=== PATIENT | female | born 1950 | race African-American/Black ===

== ENCOUNTER 2017-04-15 14:02 | Observation (INO) | payer MEDICARE, MEDICAID ==
[2017-04-15 14:42] LABS: #Basophils 0.1 thou/uL (0.0-0.2); #Eosinphils 0.1 thou/uL (0.0-0.7); #Lymphocytes 1.3 thou/uL (1.20-3.40); #Monocytes 0.9 thou/uL (0.11-0.59); #Neutrophils 6.3 thou/uL (1.40-6.50); %Basophils 0.9 % (0.0-1.0); %Lymphocytes 14.9 % (21.0-51.0); %Monocytes 10.2 % (0.0-10.0); Hematocrit 35.1 % (36.0-47.0); Mean Platelet Volume 7.7 fL (7.4-10.4); Red Blood Cell (RBC) Count 3.63 mill/uL (4.20-5.40); White Blood Cell (WBC) Count 8.7 thou/uL (4.8-10.8)
[2017-04-15 15:13] LABS: ALT (SGPT) 20 U/L (8-55); AST (SGOT) 22 U/L (5-34); Alkaline Phosphatase 58 U/L (40-150); Anion Gap 14 mmol/L (10-20); BUN (Urea Nitrogen) 24 mg/dL (9.8-20.1); Bilirubin, Total 0.3 mg/dL (0.2-1.2); CK (CPK) 454 U/L (29-168); Calc. Creatinine Clearance 0 mL/min (70-130); Calcium 9.8 mg/dL (7.8-10.44); Carbon Dioxide 28 mmol/L (23-31); Chloride 103 mmol/L (98-107); Estimated GFR-MDRD 55; Globulin 3.2 g/dL (2.4-3.5); Protein, Total 7.3 g/dL (6.0-8.3)
[2017-04-15 15:17] LABS: Troponin I Less than 0.010 ng/mL (< 0.028)
--- NOTE | 2017-04-15 16:35 | CT ---
CT HEAD WITHOUT IV CONTRAST: Date: 04/15/17 HISTORY: Syncope. Patient fell, but does not remember the fall and notes loss of consciousness. Weakness in l egs. COMPARISON: None available. FINDINGS: Scattered areas of decreased attenuation are seen in the periventricular white matter, which are non specific but likely reflective of chronic small vessel ischemic changes. Low density areas are seen within the right basal ganglia, most compatible with lacunar infarctions in the right basal ganglia, likely more remote in origin as there is mild ex vacuo dilatation of the anterior horn of the right lateral ventricle. No acute cortical infarction, hemorrhage, mass effect, or midline shift is ident ified. Calvarial structures are intact and there is no fracture visualized. Minimal mucosal thickening is p resent in the right maxillary antrum. Mastoid air cells are clear. Vascular calcifications are seen in the carotid siphons and distal vertebral arteries. IMPRESSION: 1. No acute intracranial abnormalities demonstrated. 2. Chronic small vessel ischemic changes. 3. Remote lacunar infarctions right basal ganglia. 4. Low density area within the more central derick, which may be artifactual, although findings may b e related to chronic small vessel ischemic changes. 5. MRI would be the more sensitive study of choice for more acute infarctions. POS: [facility]
[2017-04-15 16:55] LABS: Bilirubin Negative (Negative); Blood, Urine Negative (Negative); Glucose, Urine (Dipstick) Negative (Negative); Ketone, Urine Negative (Negative); Nitrite Negative (Negative); Protein, Urine (Dipstick) 30 mg/dL (Neg-Trace); Urobilinogen 0.2 mg/dL (0.2-1.0)
[2017-04-15 16:58] LABS: Bacteria/HPF None Seen HPF (None Seen); Hyaline Casts/LPF 0-3 HYALINE CAST LPF (0-3 Hyaline); RBC/HPF 0-3 HPF (0-3); Squamous Epithelial 0-3 HPF (0-3); WBC/HPF 0-3 HPF (0-3)
--- NOTE | 2017-04-15 18:28 | RAD ---
PORTABLE CHEST: History: Syncope. FINDINGS: Cardiac silhouette is magnified and enlarged. Pulmonary vasculature is engorged. Mediastinum is midl ine with aortic calcification. There is no lobar consolidation or evidence of pneumothorax. IMPRESSION: Cardiomegaly with mild pulmonary vascular congestion. POS: [facility]
[2017-04-15] MEDS ORDERED: Ondansetron HCl/PF 4 MG/2 ML Vial IVP PRN (19:05)
[2017-04-15] MEDS ORDERED: Acetaminophen 325 MG TAB PO PRN (19:05)
[2017-04-15] MEDS ORDERED: HYDROcodone/Acetaminophen 10/325 mg Tablet PO PRN (19:05)
[2017-04-15] MEDS ORDERED: Dextrose 5% in Water 1,000 ML IV PRN (19:05)
[2017-04-15] MEDS ORDERED: HYDROcodone/Acetaminophen 5/325 mg Tablet PO PRN (19:05)
[2017-04-15] MEDS ORDERED: Dextrose 50% Abboject 50 ML SYRINGE SLOW IVP PRN (19:05)
[2017-04-15] MEDS ORDERED: HumaLOG 300 UNITS/3 ML VIAL SC PRN (19:05)
--- NOTE | 2017-04-15 19:05 | HP ---
DATE OF ADMISSION: 04/15/2017 The patient is being placed on observation status. PRIMARY CARE PHYSICIAN: RAMA Woods CHIEF COMPLAINT: Fall, hypoglycemia. HISTORY OF PRESENT ILLNESS: Ms. Orozco is a 67-year-old severely obese -[place] female , who was found down by the family members on the floor. It was unknown how long she was down, she was found about 1:00 p.m. today. She remembers looking at the clock when she woke up this morning a round 6:00 a.m. and has been there ever since. EMS was called. On arrival, she was found to have a glucose around 44. She was given fluids and D5 0 and transported. On arrival here, she was then noted to be 55 on her labs. She was given another amp of D50 and her last sugar reportedly here was 70. The patient denies any loss of consciousness. She says she woke up in the floor after she went to b ed last night. She noted that her sugar was 111 when she went to bed. She did not take her evening dose of 27 units of Lantus. No new medications. She denies any fevers or chills, no chest pain. She feels like she is having r igors right now and feels short of breath because of that, but denies any cough, sputum production, chest pain or dyspnea on exertion. In the emergency department, her labs are largely unremarkable except for a low sugar. Troponins we re negative, urinalysis was clear. We were called for admission because despite intervention she re mained hypoglycemic. No other current complaints. PAST MEDICAL HISTORY: 1. Diabetes mellitus type 2, insulin-dependent. 2. Hypertension. 3. Hyperlipidemia. 4. Severe obesity. PAST SURGICAL HISTORY: Include: 1. Right ankle repair after fracture. 2. Total abdominal hysterectomy and bilateral salpingo-oophorectomy, remotely. 3. Bilateral cataract replacements, remotely. HOME MEDICATIONS: She is on: 1. Pioglitazone 45 mg daily, started a couple months ago. 2. Protonix 40 mg daily. 3. Amlodipine 10 mg daily. 4. Lasix 20 mg daily. 5. Fenofibrate 54 mg daily. 6. Pravastatin 20 mg p.o. at bedtime. 7. Aspirin 325 mg daily. 8. Glimepiride 2 mg p.o. daily. 9. Hydralazine 100 mg p.o. t.i.d. 10. Lantus 35 units in the morning, 27 units in the evening. 11. Metformin 1000 mg p.o. q.a.m. ALLERGIES: CARVEDILOL, PENICILLIN, and SULFA, all cause itching. FAMILY HISTORY: Negative for clotting or bleeding, no immune dysfunction. SOCIAL HISTORY: Negative for habits x3. She lives alone. REVIEW OF SYSTEMS: A 10-point review of systems was performed, negative for all other systems excep t as stated as per HPI. PHYSICAL EXAMINATION: VITAL SIGNS: Temperature 97.9, pulse 81, blood pressure 179/82, respiratory rate 14, and satting 10 0% on room air. GENERAL: She is awake. She is alert. She is oriented x3. She appears to be in no distress. She is obese -[place] female. She does appear to be having shaking chills. HEENT: Normocephalic, atraumatic. Pupils are equal, round, and reactive to light bilaterally, muco us membrane moist. There are no visible lesions. No thrush. NECK: Supple. She has no lymphadenopathy, JVD or thyromegaly. LUNGS: Clear. She has decreased breath sounds due to body habitus. I do not appreciate any crackl es or wheezes. ABDOMEN: Obese, it is nontender. She has no rebound, rigidity or guarding. She does have normoact andressa bowel sounds present in all 4 quadrants. EXTREMITIES: No edema and no cyanosis. SKIN: Warm, moist, and well perfused. She has no rashes, no lesions. MUSCULOSKELETAL: Normal to inspection without any palpable joint effusions or inflamed hot joints. NEUROLOGIC: Cranial nerves II through XII are grossly intact without any focal neurologic deficits. Mental status appears to be normal. Speech is normal. LABORATORY AND DIAGNOSTIC DATA: Basic metabolic profile is within normal limits except for glucose of 55. Urinalysis is negative. Troponin and CK-MB negative. Her CK was 454. White blood cell cou nt was within normal limits. Hemoglobin 11.2, hematocrit 35.1, and platelets of 290,000. Chest x-r ay is unremarkable. CT scan of the head was negative for acute changes. She does have what appears to be chronic microvascular ischemic changes. ASSESSMENT AND PLAN: 1. Hypoglycemia: It is seems to be prolonged. The patient denies taking her Lantus last night. S he did take her Lantus in the morning and also did take her glimepiride, metformin, and her pioglita zone. We will hold all of her long-acting diabetic medications. We will put her on D5 normal salin e at 75 mL an hour. We will use sliding scale insulin to correct. We will get q.2 hour Accu-Cheks for the first 8 hours and then do before meals and at bedtime. Once her sugars normalized tomorrow, we will be able to restart her medicines and let her go. I will likely do not continue pioglitazon e. 2. Fall/found on floor. Likely rolled out of bed while she was hypoglycemic and altered. At this point, she appears to be altered and oriented x3. Her CK is minimally elevated. We will recheck in the morning after she has been getting fluids. 3. Hypertension. We will continue her regular antihypertensives. Blood pressure is already gettin g up to 170s over 80s. 4. Hyperlipidemia. We will hold pravastatin for now as this is non-essential. 5. Severe obesity.
[2017-04-15] MEDS: Dextrose 5 % And 0.9 % NaCl 1,000 ML IV SCH (20:05)
[2017-04-15] MEDS: hydrALAZINE 25 MG TAB PO SCH (20:06)
[2017-04-16 04:54] LABS: #Basophils 0.1 thou/uL (0.0-0.2); #Eosinphils 0.2 thou/uL (0.0-0.7); #Lymphocytes 1.5 thou/uL (1.20-3.40); #Monocytes 0.8 thou/uL (0.11-0.59); #Neutrophils 3.7 thou/uL (1.40-6.50); %Basophils 0.8 % (0.0-1.0); %Eosinophils 2.7 % (0.0-10.0); %Lymphocytes 23.7 % (21.0-51.0); %Monocytes 12.4 % (0.0-10.0); Hematocrit 30.1 % (36.0-47.0); White Blood Cell (WBC) Count 6.2 thou/uL (4.8-10.8)
[2017-04-16 05:21] LABS: Anion Gap 15 mmol/L (10-20); BUN (Urea Nitrogen) 23 mg/dL (9.8-20.1); Calc. Creatinine Clearance 94 mL/min (70-130); Calcium 8.9 mg/dL (7.8-10.44); Carbon Dioxide 23 mmol/L (23-31); Chloride 106 mmol/L (98-107); Estimated GFR-MDRD 56
[2017-04-16] MEDS ORDERED: Enoxaparin Sodium 40 MG/0.4 ML SYRINGE SC SCH (09:00)
[2017-04-16] MEDS ORDERED: Aspirin 325 MG TAB PO SCH (09:00)
[2017-04-16] MEDS ORDERED: Amlodipine 10 MG TAB PO SCH (09:00)
[2017-04-16] MEDS: hydrALAZINE 25 MG TAB PO SCH ×2 (09:00→15:06)
[2017-04-16] MEDS ORDERED: Furosemide 20 MG TAB PO SCH (09:00)
[2017-04-16] MEDS: Dextrose 5 % And 0.9 % NaCl 1,000 ML IV SCH (10:30)
[2017-04-16 11:18] VITALS: TEMP 97.8
--- NOTE | 2017-04-16 11:57 | DIS ---
DATE OF ADMISSION: 04/15/2017 DATE OF DISCHARGE: 04/16/2017 PRIMARY CARE PHYSICIAN: Quyen Clifford, family Nurse Practitioner DISCHARGE DISPOSITION: Home. PRIMARY DISCHARGE DIAGNOSES: Hypoglycemia due to type 2 diabetes, altered mental status and fall be cause of hypoglycemia. SECONDARY DISCHARGE DIAGNOSES: Diabetes type 2, morbid obesity, hypertension, dyslipidemia, physica l deconditioning. PRIMARY PROCEDURE/OPERATION: None. RADIOLOGICAL INVESTIGATION: CT brain was negative. SIGNIFICANT LABORATORY: Hemoglobin 9.6, creatinine 1.16. Urinalysis normal. DISCHARGE MEDICATIONS: I advised this patient to hold on diabetic medication today and once blood s ugar was better controlled, then she will start her previous medication. The patient is on following medications: Amlodipine 10 mg p.o. daily, aspirin 325 mg p.o. daily, Tr iCor 54 mg p.o. daily, Lasix 20 mg p.o. daily, Amaryl 2 mg p.o. daily, Lantus insulin subcu daily, p ravastatin 20 mg p.o. at bedtime, hydralazine 100 mg p.o. daily, and metformin 1 gram p.o. daily. CONTRAINDICATIONS: None. CODE STATUS: FULL CODE. INPATIENT CONSULTANTS: None. ALLERGIES: COREG, PENICILLIN, SULFA DRUGS. DISCHARGE PLAN: Post-hospital, the patient will follow up with primary care physician. HOSPITAL COURSE: A 67-year-old female who was admitted by Dr. Syed Dominique, please see his H\T\P for further details. This patient did not eat her breakfast and she took all her diabetes medication, insulin and subsequently she had hypoglycemia and that is why she was admitted in hospital because o f hypoglycemia. She had transient altered mental status and fall with dextrose solution in emergenc y room and subsequently in the hospital, her hypoglycemia completely resolved. Necessary patient ed ucation about avoidance of hypoglycemia and the diabetic medication was given to the patient today. At this point, the patient is medically stable. The patient is seen and examined at bedside. VITAL SIGNS: Currently, temperature 97.8, pulse 79, respiratory rate 20, saturation 94%, and blood pressure 131/73. Her examination is completely benign and normal.
[2017-04-16 15:07] VITALS: BP 143/76
--- NOTE | 2017-04-20 15:51 | EKG ---
Test Reason : FALL Blood Pressure : / mmHG Vent. Rate : 085 BPM Atrial Rate : 085 BPM P-R Int : 152 ms QRS Dur : 084 ms QT Int : 374 ms P-R-T Axes : 053 018 100 degrees QTc Int : 445 ms Sinus rhythm with occasional Premature ventricular complexes Possible Anterior infarct , age undetermined Abnormal ECG Confirmed by LEODAN BEVERLY, CHRIS Olivares ([id number]), senior technical editor JESENIA ANNE ([id number]) on 04/20/2017 3:51:16 PM Referred By: LEODAN Confirmed By:CHRIS ALCOCER MD
== END 2017-04-16 17:33 | disposition home or self-care (01) ==
LOC: ERS 14:02 → T4-A 17:25
PROVIDERS: ADMIT Internal Medicine Infectious Disease; ATTEND Internal Medicine Infectious Disease
DX: E11.649 Type 2 diabetes mellitus with hypoglycemia without coma (principal); R41.82 Altered mental status, unspecified; I10 Essential (primary) hypertension; E78.5 Hyperlipidemia, unspecified; R53.81 Other malaise; E66.01 Morbid (severe) obesity due to excess calories; W19.XXXA Unspecified fall, initial encounter; Z68.43 Body mass index [BMI] 50.0-59.9, adult; Z79.4 Long term (current) use of insulin; Z79.899 Other long term (current) drug therapy; Z88.0 Allergy status to penicillin; Z88.2 Allergy status to sulfonamides; Z88.8 Allergy status to other drugs, medicaments and biological substances; Z90.710 Acquired absence of both cervix and uterus; Z90.79 Acquired absence of other genital organ(s); Z90.722 Acquired absence of ovaries, bilateral; Z98.42 Cataract extraction status, left eye; Z98.41 Cataract extraction status, right eye; Z96.1 Presence of intraocular lens; Z98.890 Other specified postprocedural states; Z87.81 Personal history of (healed) traumatic fracture
CPT/HCPCS: 36415; 36416; 70450; 71010; 80048; 80053; 81003; 81015; 82550; 82553; 84484; 85025; 93005; 94760; 96360; J1650

== ENCOUNTER 2017-05-24 11:23 | Inpatient (IN) | payer MEDICARE, MEDICAID ==
[2017-05-24] MEDS ORDERED: Dextrose 50% Abboject 50 ML SYRINGE ONE (12:30)
--- NOTE | 2017-05-24 13:25 | RAD ---
PORTABLE CHEST 1 VIEW: Date: 05/24/17 Time: 1158 hours HISTORY: Fell out of bed, dyspnea. FINDINGS/IMPRESSION: Comparison made with exam of 04/18/17. The heart is enlarged. The aorta is tortuous. There is mild pulmonary vascular congestion. No pneumo thoraces or large effusions are identified. POS: [facility]
--- NOTE | 2017-05-24 13:26 | RAD ---
LEFT KNEE 2 VIEWS: Date: 05/24/17 HISTORY: Left knee pain, fell out of bed. FINDINGS/IMPRESSION: Degenerative changes are present. No acute fracture or dislocation is identified. POS: [facility]
[2017-05-24 13:30] LABS: #Basophils 0.1 thou/uL (0.0-0.2); #Eosinphils 0.1 thou/uL (0.0-0.7); #Monocytes 0.3 thou/uL (0.11-0.59); #Neutrophils 5.2 thou/uL (1.40-6.50); %Eosinophils 1.4 % (0.0-10.0); %Monocytes 4.8 % (0.0-10.0); Hematocrit 35.2 % (36.0-47.0); Mean Platelet Volume 8.2 fL (7.4-10.4); Red Blood Cell (RBC) Count 3.57 mill/uL (4.20-5.40); White Blood Cell (WBC) Count 6.7 thou/uL (4.8-10.8)
[2017-05-24 13:50] LABS: ALT (SGPT) 53 U/L (8-55); AST (SGOT) 42 U/L (5-34); Alkaline Phosphatase 58 U/L (40-150); Anion Gap 14 mmol/L (10-20); BUN (Urea Nitrogen) 42 mg/dL (9.8-20.1); Bilirubin, Total 0.3 mg/dL (0.2-1.2); Calc. Creatinine Clearance 0 mL/min (70-130); Calcium 9.6 mg/dL (7.8-10.44); Carbon Dioxide 27 mmol/L (23-31); Chloride 103 mmol/L (98-107); Estimated GFR-MDRD 33; Globulin 3.3 g/dL (2.4-3.5); Protein, Total 7.4 g/dL (6.0-8.3)
[2017-05-24 14:18] LABS: Bilirubin Negative (Negative); Blood, Urine Negative (Negative); Glucose, Urine (Dipstick) Negative (Negative); Ketone, Urine Negative (Negative); Nitrite Negative (Negative); Protein, Urine (Dipstick) Negative (Neg-Trace); Urobilinogen 0.2 mg/dL (0.2-1.0)
[2017-05-24 14:23] LABS: Bacteria/HPF None Seen HPF (None Seen); Hyaline Casts/LPF 4-6 HYALINE CAST LPF (0-3 Hyaline); RBC/HPF 0-3 HPF (0-3); WBC/HPF 0-3 HPF (0-3)
[2017-05-24] MEDS ORDERED: Furosemide 40 MG/4 ML VIAL ONE (14:50)
[2017-05-24] MEDS ORDERED: HYDROcodone/Acetaminophen 5/325 mg Tablet ONE (15:38)
[2017-05-24] MEDS ORDERED: Nitroglycerin 2% Ointment 1 INCH/1 GM Packet ONE (15:39)
[2017-05-24 16:00] LABS: Troponin I Less than 0.010 ng/mL (< 0.028)
[2017-05-24] MEDS ORDERED: hydrALAZINE 20 MG/ML VIAL ONE (16:37)
[2017-05-24 17:59] LABS: Troponin I Less than 0.010 ng/mL (< 0.028)
[2017-05-24 19:47] VITALS: BMI 52.6
[2017-05-24] MEDS ORDERED: hydrALAZINE 20 MG/ML VIAL SLOW IVP PRN (19:47)
[2017-05-24] MEDS ORDERED: Ondansetron ODT 4 MG TAB PO PRN (19:47)
[2017-05-24] MEDS ORDERED: Dextrose 50% Abboject 50 ML SYRINGE SLOW IVP PRN (19:47)
[2017-05-24] MEDS ORDERED: HumaLOG 300 UNITS/3 ML VIAL SC PRN (19:47)
[2017-05-24] MEDS ORDERED: Ondansetron HCl/PF 4 MG/2 ML Vial IVP PRN (19:47)
[2017-05-24] MEDS ORDERED: cloNIDine 0.1 MG TAB PO PRN (19:47)
[2017-05-24] MEDS ORDERED: Dextrose 5% in Water 1,000 ML IV PRN (19:47)
--- NOTE | 2017-05-24 20:59 | HP ---
DATE OF ADMISSION: 05/24/2017 PRIMARY CARE PHYSICIAN: RAMA Woods CHIEF COMPLAINT: Altered mental status and low blood sugar. HISTORY OF PRESENT ILLNESS: This is a 67-year-old female who presents to [facility] after apparently falling out of bed in the middle of the night due to likel y hypoglycemic episode. The patient does state she has noticed multiple low blood glucose readings and recently has been taken off her morning dose of insulin and uses Lantus 27 units at bedtime. Th e patient also states she was recently placed on Actos in the last 2 weeks. The patient admits to d ifficulty with low glucose and having to eat peanut butter and candies to maintain her sugar level. The patient apparently was noted with altered mentation, falling out of her bed, striking her left knee on the ground. The patient was evaluated by EMS, at which point, her blood glucoses in the 40s , receiving D50 by EMS personnel. The patient's glucose increased to the 70s and was brought to the emergency room for evaluation. The patient denies any recent fever, chills, exposure history or tr scot. The patient denies any other change to her chronic medication regimen. The patient states sh e has been diabetic for approximately 27 years. During the patient's ER evaluation, portable chest x-ray imaging was obtained showing mild pulmonary vascular prominence. The patient received IV Lasi x 40 mg x1 as well as hydralazine topical nitro paste, [place], aspirin and D50 times 1 amp. Patient currently states she has no specific symptoms and feels at baseline. PAST MEDICAL HISTORY: 1. Morbid obesity. 2. Diabetes mellitus type 2, insulin requiring. 3. History of recurrent hypoglycemic episodes. 4. Diastolic congestive heart failure with ejection fraction of 60%-65%. 5. Hypertension. 6. Dyslipidemia. PAST SURGICAL HISTORY: 1. Status post right ankle repair. 2. Status post hysterectomy. 3. Status post eye surgery x2. 4. Status post abdominal hysterectomy with bilateral salpingo-oophorectomy. 5. Status post bilateral cataract removal. CURRENT MEDICATIONS: Based on recent admission, 04/2017: 1. Amlodipine 10 mg 1 tab p.o. daily. 2. Aspirin 325 mg one tablet p.o. daily. 3. TriCor 54 mg p.o. daily. 4. Lasix 20 mg 1 tab p.o. daily. 5. Amaryl 2 mg p.o. daily. 6. Lantus 27 units subcutaneously at bedtime. 7. Pravachol 20 mg p.o. at bedtime. 8. Metformin 1000 mg p.o. daily. 9. Hydralazine 100 mg p.o. daily. ALLERGIES: COREG, PENICILLIN, SULFA. FAMILY HISTORY: Positive for diabetes and hypertension. SOCIAL HISTORY: Patient lives independently. No current alcohol, tobacco or illicit drug use. REVIEW OF SYSTEMS: The following complete review of systems was negative, unless otherwise mentione d in the HPI or below: Constitutional: Weight loss or gain, ability to conduct usual activities. Skin: Rash, itching. Eyes: Double vision, pain. ENT/Mouth: Nose bleeding, neck stiffness, pain, tenderness. Cardiovascular: Palpitations, dyspnea on exertion, orthopnea. Respiratory: Shortness of breath, wheezing, cough, hemoptysis, fever or night sweats. Gastrointestinal: Poor appetite, abdominal pain, heartburn, nausea, vomiting, constipation, or diar yamel. Genitourinary: Urgency, frequency, dysuria, nocturia. Musculoskeletal: Pain, swelling. Neurologic/Psychiatric: Anxiety, depression. Allergy/Immunologic: Skin rash, bleeding tendency. PHYSICAL EXAMINATION: VITAL SIGNS: On admission, blood pressure 159/73, pulse 70, respiratory rate is 19, temperature 97. 7 degrees Fahrenheit, O2 saturation 95% on 2 liters per minute by nasal cannula. GENERAL APPEARANCE: This is a 67-year-old -[place] female, alert and oriented x3, pleasant, conversant, in no acute distress. HEENT: Pupils are equal, round, and reactive to light and accommodation. Extraocular muscles are i ntact. No scleral icterus, no conjunctival injection. Nares patent. OP is clear. NECK: Supple, no cervical adenopathy, no thyromegaly, no carotid bruits, no JVD appreciated. Cervi benton spine with full active and passive range of motion. No meningeal signs appreciated. CHEST: Diminished breath sounds in the bases bilaterally. CARDIOVASCULAR: S1, S2 with distant heart sounds. ABDOMEN: Obese, soft, nontender, nondistended. Bowel sounds are positive in all four quadrants. T here is no hepatosplenomegaly, no abdominal bruits, no rebound or guarding appreciated. EXTREMITIES: Warm and dry with fair turgor. Mild edema to the lower extremities. Pulses palpable distally at the dorsalis pedis, posterior tibial, and popliteal arteries bilaterally. Capillary ref ill less than 2 seconds. NEUROLOGIC: Cranial nerves II through XII are grossly intact. No focal or lateralizing signs appre ciated. PERTINENT LABORATORY DATA AND X-RAY FINDINGS: Sodium 140, potassium 4.2, chloride 103, CO2 of 27, B UN 42, creatinine 1.83 with estimated GFR 33, glucose 150, calcium 9.6, AST 42, ALT 53, total biliru bin 0.3, alkaline phosphatase 58, total CK 132, troponin I negative x1. BNP 371, previously noted 1 80 on 04/18/2017, albumin 4.1. CBC showed a white blood cell count of 6.7, hemoglobin 11.5, hematoc rit 35, platelet count 248 with 78% neutrophils. Portable chest x-ray dated 05/24/2017 showed cardi omegaly with pulmonary vascular prominence. Two views of the left knee dated 05/24/2017 showed dege nerative changes without acute fracture or dislocation. EKG dated 05/24/2017 by my interpretation s hows sinus mechanism with heart rates in the 60s-70s. Attenuated R waves noted in the precordial le ads. Normal axis. No acute ST-T wave changes appreciated. ASSESSMENT AND PLAN: 1. Acute hypoglycemic episode. We will continue to monitor serial Accu-Cheks q.4 hours. Hold home diabetic regimen. Current glucose stabilized after treatment with 2 amps of D50. We will continue to titrate home diabetic regimen on an ongoing basis with serial monitoring. 2. Acute metabolic encephalopathy secondary to #1, improved with correction of hypoglycemia. We wi ll continue serial monitoring and treat supportively. 3. Acute kidney injury on chronic kidney disease stage 3. We will continue to monitor renal functi on and avoid nephrotoxic agents and contrast media. Repeat creatinine in the a.m. 4. Diastolic congestive heart failure with ejection fraction of 60%-65%. Stable currently. We adelita l resume home Lasix therapy. Recent 2D transthoracic echocardiogram on 04/22/2017 showed overall ej ection fraction of 60%-65%. 5. Diabetes mellitus type 2, insulin requiring. We will continue insulin sliding scale for reflexi ve coverage. Hold home diabetic regimen, pending serial Accu-Cheks. 6. Hypertension. Resume home antihypertensive regimen and monitor clinical response. 7. Chronic normocytic anemia. Stable currently. No evidence to suggest acute blood loss. Repeat CBC in the a.m. 8. Prophylaxis. Sequential compression devices while in bed. Pepcid 20 mg p.o. b.i.d. 9. Code status is full. Surrogate medical decision maker is the patient's daughter.
[2017-05-24 21:20] LABS: Troponin I Less than 0.010 ng/mL (< 0.028)
[2017-05-24] MEDS: Famotidine 20 MG TAB PO SCH (22:32)
[2017-05-25 06:06] LABS: ALT (SGPT) 37 U/L (8-55); AST (SGOT) 19 U/L (5-34); Alkaline Phosphatase 44 U/L (40-150); Anion Gap 10 mmol/L (10-20); BUN (Urea Nitrogen) 43 mg/dL (9.8-20.1); Bilirubin, Total 0.2 mg/dL (0.2-1.2); Calc. Creatinine Clearance 59 mL/min (70-130); Carbon Dioxide 30 mmol/L (23-31); Chloride 104 mmol/L (98-107); Estimated GFR-MDRD 32; Globulin 2.8 g/dL (2.4-3.5); Protein, Total 6.2 g/dL (6.0-8.3)
[2017-05-25 06:07] LABS: Band 1 % (5-11); Hematocrit 30.7 % (36.0-47.0); Mean Platelet Volume 8.2 fL (7.4-10.4); Neutrophil 42 % (42-75); White Blood Cell (WBC) Count 6.3 thou/uL (4.8-10.8)
[2017-05-25] MEDS ORDERED: Sodium Chloride 0.9% 10 ML ONE (07:08)
[2017-05-25] MEDS: Famotidine 20 MG TAB PO SCH ×2 (08:41→20:52)
[2017-05-25] MEDS: hydrALAZINE 25 MG TAB PO SCH (08:41)
[2017-05-25] MEDS: Aspirin 325 MG TAB PO SCH (08:41)
[2017-05-25] MEDS: Amlodipine 10 MG TAB PO SCH (08:42)
[2017-05-25] MEDS ORDERED: Furosemide 20 MG TAB PO SCH (09:00)
[2017-05-25] MEDS: Acetaminophen 500 MG TAB PO PRN ×2 (12:24→20:52)
--- NOTE | 2017-05-25 13:43 | PDOC.PN ---
- Subjective Encounter Start Date: 05/25/17 Encounter Start Time: 13:35 Subjective: f/u for hypoglycemia and CHAYA. Glucose trend improved but pt held off -: home insulin regimen. Pt states feeling better overall. Some L knee pain -: but improved with Tylenol. - Objective Resuscitation Status: Resuscitation Status FULL:Full Resuscitation MAR Reviewed: Yes Vital Signs & Weight: Vital Signs (12 hours) Temp Pulse Resp BP BP Pulse Ox 05/25/17 12:26 99.1 F 68 19 109/72 96 05/25/17 08:42 63 147/65 H 05/25/17 08:41 63 147/65 H 05/25/17 08:36 99.0 F 63 18 147/65 H 97 05/25/17 04:45 98 05/25/17 03:59 97.6 F 65 16 181/74 H 98 Weight Weight 288 lb 11.2 oz I&O: 05/24/17 05/25/17 05/26/17 06:59 06:59 06:59 Intake Total 480 Output Total 900 Balance -420 Result Diagrams: 05/25/17 04:39 05/25/17 04:39 Additional Labs: Accuchecks 05/25/17 05/25/17 05/25/17 08:05 04:12 00:26 POC Glucose 97 169 H 222 H 05/24/17 20:12 POC Glucose 74 Laboratory Tests 04/18/17 05/24/17 05/24/17 05:32 13:17 13:17 Hgb 11.5 L Neutrophils % 77.9 H Neutrophils % (Manual) BUN 42 H Creatinine 1.83 H B-Natriuretic Peptide 180.0 H 05/24/17 05/25/17 13:17 04:39 Hgb Neutrophils % Neutrophils % (Manual) 42 BUN Creatinine B-Natriuretic Peptide 370.8 H Radiology Reviewed by me: Yes (L knee - neg for fx, dislocation) EKG Reviewed by me: Yes (Tele - SR in 60's) Phys Exam - Physical Examination Constitutional: NAD HEENT: PERRLA, oral pharynx no lesions Neck: no JVD, supple diminished in bases Cardiovascular: RRR Gastrointestinal: soft, non-tender, no distention, positive bowel sounds mild edema distally Musculoskeletal: pulses present Neurological: normal sensation, moves all 4 limbs Psychiatric: A&O x 3 Skin: normal turgor, cap refill <2 seconds Dx/Plan (1) Hypoglycemia associated with type 2 diabetes mellitus Code(s): E11.649 - TYPE 2 DIABETES MELLITUS WITH HYPOGLYCEMIA WITHOUT COMA Status: Acute Comment: Overall glucose trend improving, hold all oral hypoglycemic agents, change Lantus 15u sc HS, serial accuchecks, A1C in am (2) Status post fall Code(s): Z91.81 - HISTORY OF FALLING Status: Acute Comment: L knee contusion post fall, supportive (3) CHAYA (acute kidney injury) Code(s): N17.9 - ACUTE KIDNEY FAILURE, UNSPECIFIED Status: Acute Comment: Persistent, avoid nephrotoxic meds and contrast media, creatinine in am (4) CKD (chronic kidney disease), stage III Code(s): N18.3 - CHRONIC KIDNEY DISEASE, STAGE 3 (MODERATE) Status: Chronic (5) Hypertension Code(s): I10 - ESSENTIAL (PRIMARY) HYPERTENSION Status: Chronic Qualifiers: Hypertension type: essential hypertension Qualified Code(s): I10 - Essential (primary) hypertension Comment: Continue Hydralazine and Amlodipine (6) Morbid obesity with BMI of 50.0-59.9, adult Code(s): E66.01 - MORBID (SEVERE) OBESITY DUE TO EXCESS CALORIES; Z68.43 - BODY MASS INDEX (BMI) 50-59.9 , ADULT Status: Chronic (7) Chronic diastolic (congestive) heart failure Code(s): I50.32 - CHRONIC DIASTOLIC (CONGESTIVE) HEART FAILURE Status: Chronic Comment: EF 60-65%, compensated currently - Plan PT/OT, dialysis social worker, out of bed/ambulate, DVT proph w/SCDs Stable overall -: Decrease Lantus 15u sc HS -: Hold all oral hypoglycemic agents -: Decrease Lasix 40mg daily -: AM lab: BMP, A1C * .
[2017-05-25] MEDS: Insulin Detemir 100 UNITS/ML 15 UNITS in Pre-Filled Syringe 1 EACH SC SCH (20:52)
[2017-05-25] MEDS ORDERED: Non-Formulary Item 1 EACH (Insulin Glargine,Hum.Rec.Anlog 15 UNIT) SQ SCH (21:00)
[2017-05-26 05:39] LABS: Anion Gap 10 mmol/L (10-20); BUN (Urea Nitrogen) 48 mg/dL (9.8-20.1); Calc. Creatinine Clearance 53 mL/min (70-130); Calcium 9.1 mg/dL (7.8-10.44); Carbon Dioxide 32 mmol/L (23-31); Chloride 103 mmol/L (98-107); Estimated GFR-MDRD 29
[2017-05-26 05:52] LABS: Hemoglobin A1c 6.4 % (4.0-6.0)
[2017-05-26] MEDS ORDERED: Furosemide 40 MG TAB PO SCH (09:00)
[2017-05-26] MEDS: Aspirin 325 MG TAB PO SCH (09:21)
[2017-05-26] MEDS: hydrALAZINE 25 MG TAB PO SCH ×2 (09:21→21:06)
[2017-05-26] MEDS: Famotidine 20 MG TAB PO SCH ×2 (09:21→21:07)
[2017-05-26] MEDS: Amlodipine 10 MG TAB PO SCH (09:21)
--- NOTE | 2017-05-26 10:50 | PDOC.PN ---
- Subjective Encounter Start Date: 05/26/17 Encounter Start Time: 10:48 Patient seen and examined. No new complaints. No overnight events. having PT this AM. breathing better. blood glucose better. - Objective Resuscitation Status: Resuscitation Status FULL:Full Resuscitation MAR Reviewed: Yes Vital Signs & Weight: Vital Signs (12 hours) Temp Pulse Resp BP BP Pulse Ox 05/26/17 09:21 64 151/65 H 05/26/17 08:55 98.1 F 64 18 151/65 H 99 05/26/17 04:25 93 L 05/26/17 04:00 98.5 F 62 16 138/62 93 L 05/26/17 00:30 100 05/26/17 00:00 98.0 F 63 16 119/56 L 100 Weight Weight 288 lb 8 oz I&O: 05/25/17 05/26/17 05/27/17 06:59 06:59 06:59 Intake Total 480 1320 Output Total 900 1250 Balance -420 70 Result Diagrams: 05/25/17 04:39 05/26/17 05:02 Additional Labs: Accuchecks 05/26/17 05/26/17 05/26/17 08:04 04:16 00:32 POC Glucose 104 140 H 217 H 05/25/17 05/25/17 05/25/17 20:33 16:41 11:58 POC Glucose 270 H 183 H 133 H Radiology Reviewed by me: Yes Phys Exam - Physical Examination Constitutional: NAD HEENT: sclera anicteric Neck: supple Respiratory: no wheezing, no rales reduced breath sounds Cardiovascular: RRR Gastrointestinal: soft Musculoskeletal: edema present Neurological: non-focal, moves all 4 limbs Psychiatric: normal affect Skin: no rash, normal turgor Dx/Plan (1) CHAYA (acute kidney injury) Code(s): N17.9 - ACUTE KIDNEY FAILURE, UNSPECIFIED Status: Acute Comment: Persistent, avoid nephrotoxic meds and contrast media, creatinine in am (2) Hypoglycemia associated with type 2 diabetes mellitus Code(s): E11.649 - TYPE 2 DIABETES MELLITUS WITH HYPOGLYCEMIA WITHOUT COMA Status: Acute Comment: Overall glucose trend improving, hold all oral hypoglycemic agents, change Lantus 15u sc HS, serial accuchecks, A1C in am (3) Chronic diastolic (congestive) heart failure Code(s): I50.32 - CHRONIC DIASTOLIC (CONGESTIVE) HEART FAILURE Status: Chronic Comment: EF 60-65%, compensated currently (4) CKD (chronic kidney disease), stage III Code(s): N18.3 - CHRONIC KIDNEY DISEASE, STAGE 3 (MODERATE) Status: Chronic (5) Diabetes type 2, controlled Code(s): E11.9 - TYPE 2 DIABETES MELLITUS WITHOUT COMPLICATIONS Status: Chronic (6) Dyslipidemia Code(s): E78.5 - HYPERLIPIDEMIA, UNSPECIFIED Status: Chronic (7) GERD (gastroesophageal reflux disease) Code(s): K21.9 - GASTRO-ESOPHAGEAL REFLUX DISEASE WITHOUT ESOPHAGITIS Status: Chronic (8) Hypertension Code(s): I10 - ESSENTIAL (PRIMARY) HYPERTENSION Status: Chronic Qualifiers: Hypertension type: essential hypertension Qualified Code(s): I10 - Essential (primary) hypertension Comment: Continue Hydralazine and Amlodipine (9) Morbid obesity with BMI of 50.0-59.9, adult Code(s): E66.01 - MORBID (SEVERE) OBESITY DUE TO EXCESS CALORIES; Z68.43 - BODY MASS INDEX (BMI) 50-59.9 , ADULT Status: Chronic - Plan cont current plan of care, PT/OT, DVT proph w/SCDs * . continue current DM regime. Monitor accuchecks closely. will hold lasix and check AM labs. Cr slightly higher today. continue PT as tolerated. AM labs. will change hydralazine to 100 mg po bid and Monitor BP.
[2017-05-26 11:15] LABS: #Eosinphils 0.2 thou/uL (0.0-0.7); #Lymphocytes 2.5 thou/uL (1.20-3.40); #Monocytes 0.8 thou/uL (0.11-0.59); #Neutrophils 3.8 thou/uL (1.40-6.50); %Basophils 0.4 % (0.0-1.0); %Lymphocytes 34.3 % (21.0-51.0); %Monocytes 10.7 % (0.0-10.0); Hematocrit 33.8 % (36.0-47.0); Mean Platelet Volume 7.9 fL (7.4-10.4); Red Blood Cell (RBC) Count 3.43 mill/uL (4.20-5.40); White Blood Cell (WBC) Count 7.3 thou/uL (4.8-10.8)
[2017-05-26] MEDS: HumaLOG 300 UNITS/3 ML VIAL SC PRN (18:04)
[2017-05-26] MEDS ORDERED: Sodium Chloride 0.9% 10 ML ONE (20:19)
[2017-05-26] MEDS: Insulin Detemir 100 UNITS/ML 15 UNITS in Pre-Filled Syringe 1 EACH SC SCH (21:07)
[2017-05-26] MEDS ORDERED: Sodium Chloride 0.9% 20 ML ONE (22:19)
[2017-05-27] MEDS: Acetaminophen 500 MG TAB PO PRN (00:57)
[2017-05-27 05:40] LABS: Anion Gap 7 mmol/L (10-20); BUN (Urea Nitrogen) 45 mg/dL (9.8-20.1); Calc. Creatinine Clearance 56 mL/min (70-130); Calcium 9.3 mg/dL (7.8-10.44); Carbon Dioxide 35 mmol/L (23-31); Chloride 104 mmol/L (98-107); Estimated GFR-MDRD 30
[2017-05-27] MEDS ORDERED: Sodium Chloride 0.9% 10 ML ONE (09:12)
[2017-05-27] MEDS: Famotidine 20 MG TAB PO SCH (09:29)
[2017-05-27] MEDS: Amlodipine 10 MG TAB PO SCH (09:29)
[2017-05-27] MEDS: hydrALAZINE 25 MG TAB PO SCH (09:29)
[2017-05-27] MEDS: Aspirin 325 MG TAB PO SCH (09:31)
--- NOTE | 2017-05-27 10:23 | PDOC.PN ---
- Subjective Encounter Start Date: 05/27/17 Encounter Start Time: 10:21 Patient seen and examined. No new complaints. No overnight events. feels good and ready to go home. No dizziness or chest pain or sob. No leg swelling. - Objective Resuscitation Status: Resuscitation Status FULL:Full Resuscitation MAR Reviewed: Yes Vital Signs & Weight: Vital Signs (12 hours) Temp Pulse Resp BP BP Pulse Ox 05/27/17 09:29 64 153/68 H 05/27/17 04:00 98.0 F 64 16 156/70 H 94 L 05/26/17 22:29 63 20 135/63 95 Weight Weight 288 lb I&O: 05/26/17 05/27/17 05/28/17 06:59 06:59 06:59 Intake Total 1320 1710 Output Total 1250 1750 Balance 70 -40 Result Diagrams: 05/26/17 11:08 05/27/17 04:17 Additional Labs: Accuchecks 05/27/17 05/26/17 05/26/17 04:02 23:39 21:01 POC Glucose 125 H 132 H 144 H 05/26/17 05/26/17 16:05 11:56 POC Glucose 234 H 149 H Phys Exam - Physical Examination Constitutional: NAD HEENT: sclera anicteric Neck: supple Respiratory: no wheezing, no rales Cardiovascular: RRR Gastrointestinal: soft Musculoskeletal: no edema Neurological: non-focal Psychiatric: normal affect, A&O x 3 Skin: no rash Dx/Plan (1) CHAYA (acute kidney injury) Code(s): N17.9 - ACUTE KIDNEY FAILURE, UNSPECIFIED Status: Acute Comment: Persistent, avoid nephrotoxic meds and contrast media, creatinine in am (2) Hypoglycemia associated with type 2 diabetes mellitus Code(s): E11.649 - TYPE 2 DIABETES MELLITUS WITH HYPOGLYCEMIA WITHOUT COMA Status: Acute Comment: Overall glucose trend improving, hold all oral hypoglycemic agents, change Lantus 15u sc HS, serial accuchecks, A1C in am (3) Chronic diastolic (congestive) heart failure Code(s): I50.32 - CHRONIC DIASTOLIC (CONGESTIVE) HEART FAILURE Status: Chronic Comment: EF 60-65%, compensated currently (4) CKD (chronic kidney disease), stage III Code(s): N18.3 - CHRONIC KIDNEY DISEASE, STAGE 3 (MODERATE) Status: Chronic (5) Diabetes type 2, controlled Code(s): E11.9 - TYPE 2 DIABETES MELLITUS WITHOUT COMPLICATIONS Status: Chronic (6) Dyslipidemia Code(s): E78.5 - HYPERLIPIDEMIA, UNSPECIFIED Status: Chronic (7) GERD (gastroesophageal reflux disease) Code(s): K21.9 - GASTRO-ESOPHAGEAL REFLUX DISEASE WITHOUT ESOPHAGITIS Status: Chronic (8) Hypertension Code(s): I10 - ESSENTIAL (PRIMARY) HYPERTENSION Status: Chronic Qualifiers: Hypertension type: essential hypertension Qualified Code(s): I10 - Essential (primary) hypertension Comment: Continue Hydralazine and Amlodipine (9) Morbid obesity with BMI of 50.0-59.9, adult Code(s): E66.01 - MORBID (SEVERE) OBESITY DUE TO EXCESS CALORIES; Z68.43 - BODY MASS INDEX (BMI) 50-59.9 , ADULT Status: Chronic - Plan * . BS controlled with current regime. Lantus 15 U HS and hold oral DM meds. f/u with PCP. Monitor BS at home. continue current BP regime on DC and monitor BP at home. will make hydralazine 100 mg po bid.
[2017-05-27 13:52] VITALS: BP 144/66
[2017-05-27] MEDS: HumaLOG 300 UNITS/3 ML VIAL SC PRN ×2 (14:01→16:08)
[2017-05-27 16:39] VITALS: TEMP 97.3
--- NOTE | 2017-05-27 19:12 | DIS ---
DATE OF ADMISSION: 05/24/2017 DATE OF DISCHARGE: 05/27/2017 DISCHARGE DIAGNOSES: 1. Acute hypoglycemic episode corrected after adjustment of the diabetic medication regimen. 2. Acute metabolic encephalopathy secondary to #1. 3. Acute kidney injury on chronic kidney disease stage 3, resolved. 4. Chronic diastolic congestive heart failure. 5. Type 2 diabetes, insulin requiring. 6. Hypertension. 7. Anemia. 8. Morbid obesity. CONSULTATIONS: None. PROCEDURES: None. HOSPITAL COURSE: This is a 67-year-old female who was admitted to the hospital with altered mentati on and low blood sugar and also hypoglycemic episode. Her diabetic regimen was adjusted. Her Lantu s was reduced to 15 units subcu at bedtime, oral hypoglycemic agents were held. She maintained her Accu-Cheks in normal range, in the 120s to 140s. On the day of discharge, the current regimen and p jesse was to discharge her home. Blood pressure was also unstable, but got better with increasing the hydralazine dose. The patient was advised to closely monitor blood pressure at home and talk to palmer r primary care physician. The patient was also found to be hypoxic on exertion and home oxygen was arranged by case management . The patient does have physical therapy at home and plan is to resume home physical therapy as nadine erated. CONDITION ON DISCHARGE: Stable. DISPOSITION: To home. DISCHARGE MEDICATIONS: Protonix 40 mg p.o. daily, Lasix 40 mg daily, pravastatin 20 mg at bedtime, hydralazine 100 mg p.o. b.i.d., amlodipine 10 mg daily, Lantus 15 units subcutaneously at bedtime. DISCHARGE FOLLOWUP: With primary care physician in 1 week. Please note that the patient's antihyperglycemic agents were held. All the oral agents were held an d her Lantus dose was reduced to 15 units for the hyperglycemia, even patient was advised to monitor Accu-Cheks at home closely and inform her primary care physician if she starts going up at home. T he patient was advised to control her diet as well at home. Blood pressure also was labile and her medications were adjusted. She was also told to monitor her blood pressure closely at home and keep a log and bring it to the primary care physician in 1-2 weeks. Home oxygen will be arranged by case management. Please note that I spent more than 35 minutes coordinating the discharge care of this patient.
== END 2017-05-27 16:44 | disposition home health service (06) | DRG 637 ==
LOC: ERS 11:23 → 2NO 16:45
PROVIDERS: ADMIT Family Medicine; ATTEND Family Medicine
DX: E11.649 Type 2 diabetes mellitus with hypoglycemia without coma (principal); G93.41 Metabolic encephalopathy; N17.9 Acute kidney failure, unspecified; I13.0 Hypertensive heart and chronic kidney disease with heart failure and stage 1 through stage 4 chronic kidney disease, or unspecified chronic kidney disease; I50.32 Chronic diastolic (congestive) heart failure; Z68.43 Body mass index [BMI] 50.0-59.9, adult; E66.01 Morbid (severe) obesity due to excess calories; N18.3 Chronic kidney disease, stage 3 (moderate); D64.9 Anemia, unspecified; K21.9 Gastro-esophageal reflux disease without esophagitis; R09.02 Hypoxemia; Z88.0 Allergy status to penicillin; Z79.4 Long term (current) use of insulin; Z99.81 Dependence on supplemental oxygen; Z88.2 Allergy status to sulfonamides; Z88.8 Allergy status to other drugs, medicaments and biological substances; Z91.81 History of falling; Z83.3 Family history of diabetes mellitus; Z82.49 Family history of ischemic heart disease and other diseases of the circulatory system
CPT/HCPCS: 36415; 36416; 51701; 71010; 80048; 80053; 81003; 81015; 82550; 82553; 82570; 83036; 83880; 83970; 84156; 84484; 85007; 85014; 85018; 85025; 85027; 93005; 96374; 96375; A4216; A4353; G8978-GP-CK; G8979-GP-CI; J0360; J1815; J1940

== ENCOUNTER 2017-07-08 11:13 | Emergency (ER) | payer MEDICARE, MEDICAID ==
[2017-07-08] MEDS ORDERED: Lidocaine 1% PF 5 ML VIAL ONE (12:35)
[2017-07-08] MEDS ORDERED: Atropine Sulfate 1 mg/10 ml Syringe ONE (12:53)
[2017-07-08] MEDS ORDERED: Atropine Sulfate 1% Ophth Soln 5 ml Bottle R EYE SCH (13:00)
--- NOTE | 2017-07-08 13:46 | RAD ---
FOUR VIEWS OF THE LEFT KNEE: DATE: 07/08/17. COMPARISON: None. HISTORY: Trauma, fall, pain. FINDINGS: There is severe medial compartment degenerative change with joint space narrowing, subchondral sclero sis, and osteophyte formation. There is mild /moderate lateral compartment degenerative change prese nt. Small nonspecific knee joint effusion is seen. Significant patellofemoral joint space narrowing note d. There is atherosclerotic calcification posteriorly. There is enthesophyte formation at the inser tion of the quadriceps tendon. No displaced fracture or dislocation is evident. IMPRESSION: Prominent multicompartment degenerative change. Nonspecific small knee joint effusion. Atherosclero tic disease. No acute fracture or dislocation seen. POS: [facility]
--- NOTE | 2017-07-08 13:49 | RAD ---
THREE VIEWS OF THE RIGHT HAND: 07/08/2017 HISTORY: Fall. Trauma. Pain. COMPARISON: None. FINDINGS: There is degenerative change involving the first interphalangeal joint and metacarpophalangeal joint. No displaced fracture or evidence of dislocation is seen. IMPRESSION: Degenerative change. No acute osseous abnormality noted. POS: [facility]
--- NOTE | 2017-07-08 14:21 | CT ---
CT BRAIN WITHOUT CONTRAST: Date: 07/08/17 HISTORY: 67-year-old female with fall, resulting in lost vision in right eye. She has a patch over the eye due to recent retinal surgery. FINDINGS: Comparison made with exam of 04/15/17. 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 The ventricular size is stable and the basil ar cisterns are patent. There are changes of chronic small vessel ischemic disease in the periventric ular white matter. No evidence of acute infarct, hemorrhage, midline shift, or abnormal extra-axial f luid collections are seen. The bony calvarium is intact. The visualized paranasal sinuses and mastoid air cells are well aerated. There is increased density in the region of the lens in the right optic globe. IMPRESSION: 1. No CT evidence of acute intracranial process. 2. Increased density in the region of the lens in the right optic globe. This may be due to dislocat ion of the lens or hemorrhage. Ophthalmology consultation is recommended. Study was interpreted in consultation with Dr. Chad Dobbins (Neuroradiologist), who concurs. POS: [facility]
== END 2017-07-08 14:26 | disposition home or self-care (01) ==
LOC: ERS 11:13
DX: S61.210A Laceration without foreign body of right index finger without damage to nail, initial encounter (principal); S00.83XA Contusion of other part of head, initial encounter; S05.12XA Contusion of eyeball and orbital tissues, left eye, initial encounter; S80.02XA Contusion of left knee, initial encounter; I13.0 Hypertensive heart and chronic kidney disease with heart failure and stage 1 through stage 4 chronic kidney disease, or unspecified chronic kidney disease; I50.9 Heart failure, unspecified; N18.9 Chronic kidney disease, unspecified; E11.9 Type 2 diabetes mellitus without complications; E78.5 Hyperlipidemia, unspecified; W01.198A Fall on same level from slipping, tripping and stumbling with subsequent striking against other object, initial encounter
CPT/HCPCS: 12002; 70450; 93005; J0461; J2001

== ENCOUNTER 2017-09-11 12:16 | Outpatient (CLI) | payer MEDICARE, MEDICAID ==
[2017-09-11 13:45] LABS: Hemoglobin 12.5 g/dL (12.0-16.0); Mean Corpuscular HGB CONC 33.7 g/dL (32.0-36.0); Mean Corpuscular Volume 92.1 fl (81.0-99.0); Platelet Count 229 thou/uL (130-400); Red Blood Cell (RBC) Count 4.04 mill/uL (4.20-5.40); White Blood Cell (WBC) Count 5.5 thou/uL (4.8-10.8)
[2017-09-11 13:52] LABS: PTT 26.3 SEC (22.9-36.1)
[2017-09-11 14:10] LABS: ALT (SGPT) 9 U/L (8-55); AST (SGOT) 10 U/L (5-34); Albumin 3.9 g/dL (3.4-4.8); Alkaline Phosphatase 106 U/L (40-150); Anion Gap 14 mmol/L (10-20); BUN (Urea Nitrogen) 24 mg/dL (9.8-20.1); Bilirubin, Total 0.4 mg/dL (0.2-1.2); Calc. Creatinine Clearance 0 mL/min (70-130); Calcium 9.6 mg/dL (7.8-10.44); Carbon Dioxide 26 mmol/L (23-31); Chloride 97 mmol/L (98-107); Estimated GFR-MDRD 40; Globulin 3.2 g/dL (2.4-3.5); Glucose 392 mg/dL (80-115); Potassium 4.1 mmol/L (3.5-5.1); Protein, Total 7.1 g/dL (6.0-8.3); Sodium 133 mmol/L (136-145)
--- NOTE | 2017-09-11 14:13 | RAD ---
PA AND LATERAL CHEST: HISTORY: Preop. FINDINGS: Heart size is border. There are atherosclerotic changes of the aorta. The lungs are clear of infilt rates. There are arthritic changes of the spine. IMPRESSION: Borderline heart size. No active intrathoracic disease. POS: [facility]
--- NOTE | 2017-09-11 21:06 | EKG ---
Test Reason : Blood Pressure : / mmHG Vent. Rate : 076 BPM Atrial Rate : 076 BPM P-R Int : 166 ms QRS Dur : 088 ms QT Int : 396 ms P-R-T Axes : 059 022 086 degrees QTc Int : 445 ms Normal sinus rhythm Nonspecific T wave abnormality Abnormal ECG When compared with ECG of 08-JUL-2017 11:29, No significant change was found Confirmed by TITI GOYAL ([id number]) on 09/11/2017 9:06:18 PM Referred By: VANESA Confirmed By:TITI GOYAL
== END 2017-09-11 12:17 | disposition home or self-care (01) ==
LOC: LABBT 12:16
PROVIDERS: ATTEND Internal Medicine Cardiovascular Disease
DX: Z01.818 Encounter for other preprocedural examination (principal)
CPT/HCPCS: 71046; 80053; 85027; 85610; 85730; 93005; 93010

== ENCOUNTER → 2017-09-16 | Day surgery (SDC) | payer MEDICARE, MEDICAID ==
[2017-09-11 12:49] VITALS: BMI 44.5
[~2017-09-16] MED LIST: Fentanyl 100 MCG/2 ML VIAL ONE; Heparin 10,000 UNITS/1 ML VIAL ONE; Iopamidol 370 76% 100 ML VIAL ONE; Iopamidol 370 76% 50 ML VIAL FS ONE; Lidocaine 1% (PF) 30 ML VIAL ONE; Metoprolol Tartrate 5 MG/5 ML VIAL ONE; Midazolam HCl 2 mg/2 ml Vial ONE; Nitroglycerin 4.9 GM Bottle ONE; Protamine Sulfate 50 MG/5 ML VIAL ONE; hydrALAZINE 20 MG/ML VIAL ONE
[2017-09-16 06:49] LABS: Cardiac Risk 3.2 (Less than 4.5)
== END ==
LOC: CCL 06:03
PROVIDERS: ATTEND Internal Medicine Cardiovascular Disease
DX: I25.10 Atherosclerotic heart disease of native coronary artery without angina pectoris (principal); I11.0 Hypertensive heart disease with heart failure; I50.9 Heart failure, unspecified; E11.9 Type 2 diabetes mellitus without complications; E78.00 Pure hypercholesterolemia, unspecified; E66.9 Obesity, unspecified; Z68.41 Body mass index [BMI] 40.0-44.9, adult; Z88.0 Allergy status to penicillin; Z88.2 Allergy status to sulfonamides; Z88.8 Allergy status to other drugs, medicaments and biological substances
CPT/HCPCS: 80061; 85347; 93458; C1769; 36415; 99152; J0360; J1644; J2001; J2250; J2720; J3010

== ENCOUNTER 2017-10-09 12:21 | Outpatient (CLI) | payer MEDICARE, MEDICAID ==
--- NOTE | 2017-10-10 15:18 | PFT ---
PATIENT HISTORY: HEIGHT: 61.5 WEIGHT:251.9 SMOKER: NO HOW LONG: PACKS PER DAY PRODUCTIVE COUGH: LUNG DISEASE: PHYSICIAN INTERPRETATION FINAL REPORT:FEV1 is 1.230 which is 80% predicted, FVC is 1.56 liters which 72% predicted. Total lung capacity 3.24 liters which 89% predicted. DLCO was 10.97 which is 64%. IMPRESSION: The flow volume loop appears restrictive. Borderline restrictive impairment as indicated by the flow volume loop. The elevated residual volume is probably an anomaly. The gas exchange appears to be reduced. Demolition Specialist: PEEWEE Chain Person: PEEWEE ARELLANO
== END 2017-10-09 12:22 | disposition home or self-care (01) ==
LOC: CP 12:21
PROVIDERS: ATTEND Internal Medicine Pulmonary Disease
DX: R06.00 Dyspnea, unspecified (principal)
CPT/HCPCS: 94060; 94727; 94729

== ENCOUNTER 2017-10-24 20:30 | Outpatient (CLI) | payer MEDICARE, MEDICAID | END 2017-10-24 20:31 | disposition home or self-care (01) | LOC: SLEEPLAB 20:30 | PROVIDERS: ATTEND Internal Medicine Pulmonary Disease | DX: G47.33 Obstructive sleep apnea (adult) (pediatric) (principal); E66.9 Obesity, unspecified; F41.9 Anxiety disorder, unspecified; I50.9 Heart failure, unspecified; E11.9 Type 2 diabetes mellitus without complications; I10 Essential (primary) hypertension; J45.909 Unspecified asthma, uncomplicated | CPT/HCPCS: 95811 ==

== ENCOUNTER 2017-12-19 19:31 | Inpatient (IN) | payer MEDICARE, MEDICAID ==
[2017-12-19 20:16] LABS: #Eosinphils 0.1 thou/uL (0.0-0.7); #Lymphocytes 1.9 thou/uL (1.20-3.40); #Monocytes 0.5 thou/uL (0.11-0.59); #Neutrophils 2.4 thou/uL (1.40-6.50); %Basophils 0.3 % (0.0-1.0); %Eosinophils 1.6 % (0.0-10.0); %Lymphocytes 38.9 % (21.0-51.0); %Monocytes 10.2 % (0.0-10.0); %Neutrophils 49.1 % (42.0-75.0); Hemoglobin 12.2 g/dL (12.0-16.0); Mean Corpuscular HGB CONC 32.3 g/dL (32.0-36.0); Mean Corpuscular Hemoglobin 30.8 pg (27.0-31.0); Mean Corpuscular Volume 95.4 fl (81.0-99.0); Mean Platelet Volume 9.3 fL (7.4-10.4); Platelet Count 192 thou/uL (130-400); RBC Distribution Width 12.5 % (11.5-14.5); Red Blood Cell (RBC) Count 3.97 mill/uL (4.20-5.40); White Blood Cell (WBC) Count 4.8 thou/uL (4.8-10.8)
[2017-12-19 20:39] LABS: ALT (SGPT) 14 U/L (8-55); AST (SGOT) 11 U/L (5-34); Albumin 3.7 g/dL (3.4-4.8); Alkaline Phosphatase 116 U/L (40-150); Anion Gap 16 mmol/L (10-20); BUN (Urea Nitrogen) 26 mg/dL (9.8-20.1); Bilirubin, Total 0.5 mg/dL (0.2-1.2); Calc. Creatinine Clearance 0 mL/min (70-130); Calcium 8.8 mg/dL (7.8-10.44); Carbon Dioxide 26 mmol/L (23-31); Chloride 86 mmol/L (98-107); Estimated GFR-MDRD 23; Magnesium 2.2 mg/dL (1.6-2.6); Potassium 4.6 mmol/L (3.5-5.1); Protein, Total 6.7 g/dL (6.0-8.3); Sodium 123 mmol/L (136-145)
[2017-12-19 20:43] LABS: Glucose 1023 mg/dL (80-115)
[2017-12-19] MEDS ORDERED: Insulin Regular 300 UNITS/3 ML VIAL ONE (20:52)
--- NOTE | 2017-12-19 21:17 | RAD ---
CHEST ONE VIEW: 12/19/17 HISTORY: Chest pain. COMPARISON: Chest radiograph 09/11/17. FINDINGS: Lungs are clear. No pneumothorax or effusion. Cardiac silhouette is upper limits of normal. No acute osseous abnormality. IMPRESSION: No acute intrathoracic abnormality. POS: [facility]
[2017-12-19 21:20] LABS: Osmolality, Serum 330 mOsm/kg (280-295)
[2017-12-19 21:27] LABS: CKMB 0.5 ng/mL (0-6.6); Troponin I Less than 0.010 ng/mL (< 0.028)
[2017-12-19 21:46] LABS: Base Excess-Venous 0.4 mmol/L (0 (+/- 2.5)); Bicarbonate (HCO3v) 26.8 mmol/L (1.0-85.0); CO2 Tension (PvCO2) 49.7 mmHg (41.0-51.0); Calcium, Ionized 1.09 mmol/L (1.12-1.32); Potassium 4.1 mmol/L (3.4-4.7); T. Carbon Dioxide 28.4 mmol/L (1.0-85.0); vO2 Saturation-calc 72.4 % (94-98)
[2017-12-19 22:25] LABS: Bilirubin Negative (Negative); Blood, Urine Negative (Negative); Clarity CLEAR (Clear); Glucose, Urine (Dipstick) >=1000 mg/dL (Negative); Leukocyte Negative (Negative); Nitrite Negative (Negative); Protein, Urine (Dipstick) Negative (Neg-Trace); Specific Gravity, Urine 1.026 (1.002-1.036); Urobilinogen 0.2 mg/dL (0.2-1.0); pH, Urine 5.5 (5.0-9.0)
[2017-12-19 23:44] VITALS: BMI 45.4
[2017-12-20] MEDS ORDERED: Ondansetron HCl/PF 4 MG/2 ML Vial IVP PRN ×2 (00:05→00:21)
[2017-12-20] MEDS ORDERED: Ondansetron ODT 4 MG TAB SL PRN (00:05)
[2017-12-20] MEDS ORDERED: Acetaminophen 325 MG TAB PO PRN (00:05)
[2017-12-20] MEDS ORDERED: Sodium Chloride 0.9% 1,000 ML IV SCH ×2 (00:15→00:21)
[2017-12-20] MEDS ORDERED: Dextrose 5% in Water 1,000 ML IV PRN (00:21)
[2017-12-20] MEDS ORDERED: cloNIDine 0.1 MG TAB PO PRN (00:21)
[2017-12-20] MEDS ORDERED: Ondansetron ODT 4 MG TAB PO PRN (00:21)
[2017-12-20] MEDS ORDERED: Dextrose 50% Abboject 50 ML SYRINGE SLOW IVP PRN (00:21)
[2017-12-20] MEDS ORDERED: Acetaminophen 500 MG TAB PO PRN (00:21)
[2017-12-20] MEDS ORDERED: Zolpidem Tartrate 5 MG TAB PO PRN (00:21)
[2017-12-20] MEDS ORDERED: hydrALAZINE 20 MG/ML VIAL SLOW IVP PRN (00:21)
[2017-12-20] MEDS: HumaLOG 300 UNITS/3 ML VIAL SC PRN ×5 (02:06→21:26)
[2017-12-20 05:21] LABS: Hemoglobin A1c 15.2 % (4.0-6.0)
[2017-12-20 05:24] LABS: Anion Gap 14 mmol/L (10-20); BUN (Urea Nitrogen) 24 mg/dL (9.8-20.1); Calc. Creatinine Clearance 50 mL/min (70-130); Calcium 8.8 mg/dL (7.8-10.44); Carbon Dioxide 25 mmol/L (23-31); Chloride 97 mmol/L (98-107); Estimated GFR-MDRD 32; Potassium 3.7 mmol/L (3.5-5.1); Sodium 132 mmol/L (136-145)
[2017-12-20 05:37] LABS: Glucose 580 mg/dL (80-115)
[2017-12-20] MEDS ORDERED: Insulin Glargine 10 UNITS in Pre-Filled Syringe 1 EACH SC SCH (06:00)
[2017-12-20 06:14] LABS: Eosinophils 1 % (0-10); Hemoglobin 11.8 g/dL (12.0-16.0); Lymphocytes 28 % (21-51); MDiff Complete? YES; Mean Corpuscular HGB CONC 33.4 g/dL (32.0-36.0); Mean Corpuscular Hemoglobin 30.4 pg (27.0-31.0); Mean Platelet Volume 9.1 fL (7.4-10.4); Monocytes 6 % (0-10); Neutrophil 61 % (42-75); PLT Morphology Comment Appears Adequate; Platelet Count 184 thou/uL (130-400); RBC Distribution Width 12.4 % (11.5-14.5); RBC Morphology Normal; Reactive Lymphocytes 4 % (0-10); Red Blood Cell (RBC) Count 3.88 mill/uL (4.20-5.40); White Blood Cell (WBC) Count 7.9 thou/uL (4.8-10.8)
[2017-12-20] MEDS: Famotidine 20 MG TAB PO SCH (08:23)
[2017-12-20] MEDS: Magnesium Oxide 400 MG TAB PO SCH (08:23)
[2017-12-20] MEDS: Amlodipine 10 MG TAB PO SCH (08:24)
[2017-12-20] MEDS: hydrALAZINE 25 MG TAB PO SCH ×2 (08:24→21:24)
[2017-12-20] MEDS: Aspirin 81 mg Enteric Coated Tablet PO SCH (08:24)
--- NOTE | 2017-12-20 09:01 | HP ---
DATE OF ADMISSION: 12/20/2017 PRIMARY CARE PHYSICIAN: RAMA Woods CHIEF COMPLAINT: Elevated blood sugar. HISTORY OF PRESENT ILLNESS: This is a 67-year-old female who presented to [facility] Emergency Department after being told by her primary care provider to come to the emergency room af ter initial glucose was noted over 700 on screening lab work. 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 The patie nt denied any specific symptoms, headache, visual disturbance, but some increased urination. The pat ient denied noticing any elevated glucose readings as she takes her glucose approximately 4 times per day, taking her regular Lantus dose of 15 units at bedtime. The patient was notably admitted to [facility] in 05/2017 for hypoglycemic episodes, undergoing a strict evaluation and eventual ad justment to her chronic diabetic regimen. The patient was taken off all oral hypoglycemics and her i nsulin dosing was reduced to current level of 15 units at bedtime. The patient does admit to critical access hospital stress with the recent of her mother in the last several days prior to this evaluation. The patient's appetite has been down. Her sleep patterns are disrupted and she feels generally sad and depressed. The patient denied any nausea, vomiting, diarrhea. The patient denied any recent travel history, fever, exposure history or new medications. In the emergency room, patient was noted with a glucose of 1023. The patient received Humulin R 10 units x1 in addition to 2 liters of intravenous normal saline. The patient was referred to the Hospitalist Service for evaluation. PAST MEDICAL HISTORY: 1. Diabetes mellitus type 2, insulin requiring. 2. History of hypoglycemic episodes. 3. Diastolic heart failure with ejection fraction of 60-65%. 4. Hypertension. 5. Dyslipidemia. 6. Morbid obesity. PAST SURGICAL HISTORY: 1. Status post right ankle repair. 2. Status post hysterectomy. 3. Status post eye surgery x2. 4. Status post abdominal hysterectomy with bilateral salpingo-oophorectomy. 5. Status post bilateral cataract removal. CURRENT MEDICATIONS: 1. Amlodipine 10 mg 1 tab p.o. daily. 2. Vitamin C 1000 mg p.o. daily. 3. Enteric-coated aspirin 81 mg p.o. daily. 4. Lipitor 40 mg p.o. daily. 5. Lasix 40 mg p.o. daily. 6. Hydralazine 100 mg p.o. b.i.d. 7. Glargine insulin 15 units subcutaneously at bedtime. 8. Isosorbide mononitrate 30 mg p.o. daily. 9. Magnesium oxide 400 mg p.o. daily. 10. Metoprolol succinate 50 mg p.o. daily. 11. Protonix 40 mg p.o. daily. 12. Timoptic 0.5% 1 drop to right eye b.i.d. 13. Vitamin E 1000 units p.o. daily. ALLERGIES: CARVEDILOL, PENICILLIN, SULFA. FAMILY HISTORY: Positive for diabetes and hypertension. SOCIAL HISTORY: Patient resides in [place], [place]. Lives independently. No current alcohol, tobac co, or illicit drug use. REVIEW OF SYSTEMS: The following complete review of systems was negative, unless otherwise mentioned in the HPI or below: Constitutional: Weight loss or gain, ability to conduct usual activities. Sk in: Rash, itching. Eyes: Double vision, pain. ENT/Mouth: Nose bleeding, neck stiffness, pain, te nderness. Cardiovascular: Palpitations, dyspnea on exertion, orthopnea. Respiratory: Shortness of breath, wheezing, cough, hemoptysis, fever or night sweats. Gastrointestinal: Poor appetite, abdom inal pain, heartburn, nausea, vomiting, constipation, or diarrhea. Genitourinary: Urgency, frequenc y, dysuria, nocturia. Musculoskeletal: Pain, swelling. Neurologic/Psychiatric: Anxiety, depressio n. Allergy/Immunologic: Skin rash, bleeding tendency. Otherwise negative except as stated per HPI. PHYSICAL EXAMINATION: VITAL SIGNS: On admission, blood pressure 175/74, pulse 64, respiratory rate 14, temperature 97.4 de grees Fahrenheit, O2 saturation 95% on room air. GENERAL APPEARANCE: This is a 67-year-old female, alert and oriented x3, flat affec t, in no acute distress. HEENT: Pupils are equal, round, and reactive to light and accommodation. Extraocular muscles are in tact. No scleral icterus, no conjunctival injection. Nares patent. OP is clear. Teeth in fair rep air. NECK: Supple, no cervical adenopathy, no thyromegaly, no carotid bruits, no JVD appreciated. Cervic al spine with full active and passive range of motion. No meningeal signs appreciated. LUNGS: Clear to auscultation bilaterally. CARDIOVASCULAR: S1, S2 with diminished heart sounds. No murmur, rub, or gallop. ABDOMEN: Obese, soft, nontender, nondistended. Bowel sounds are positive in all four quadrants. Th ere is no hepatosplenomegaly, no abdominal bruits, no rebound or guarding appreciated. EXTREMITIES: Warm and dry with fair turgor. No clubbing, cyanosis, or asymmetric edema appreciated. Pulses palpable distally at the dorsalis pedis, posterior tibial, and popliteal arteries bilaterall y. Capillary refill less than 2 seconds. NEUROLOGIC: Cranial nerves II-XII are grossly intact. No focal or lateralizing signs appreciated. PERTINENT LABORATORY AND X-RAY FINDINGS: Sodium 123, potassium 4.6, chloride 86, CO2 of 26, BUN 26, creatinine 2.51, estimated GFR 23, glucose 1023. Serum osmolality 330, calcium 8.8, phosphorus 4.0, magnesium 2.2. LFTs within normal limits. CBC within normal limits. Venous blood gas dated 018 showed a pH of 7.34, pCO2 of 49.7, pO2 of 41. Urinalysis showed greater than 1000 glucose. Beta -hydroxybutyrate level 0.19. Portable chest x-ray dated 12/19/2016 showed no acute cardiopulmonary p rocess. EKG dated 12/19/2017 by my interpretation shows sinus bradycardia with heart rates in the 50 s. Attenuated R waves noted in the precordial leads. Normal axis. No acute ST-T wave changes are a ppreciated. ASSESSMENT AND PLAN: 1. Hyperglycemia. The patient will be admitted to the telemetry unit. Suspect secondarily to emoti onal stress after the recent of her mother. We will continue intravenous normal saline at 75 m L per hour. Continue moderate insulin sliding scale with Humalog. Resume Lantus 15 units subcutaneo usly at bedtime. Check A1c level in the a.m. Serial Accu-Cheks. 2. Hyponatremia. Secondarily to hyperglycemia as outlined in #1. We will continue intravenous norm al saline at 75 mL per hour and monitor serial sodium. 3. Acute kidney injury. Continue intravenous fluid as outlined previously. Avoid nephrotoxic agent s and contrast media. Repeat creatinine in the a.m. 4. Diabetes mellitus type 2, insulin requiring. Check A1c level in the a.m. 5. Accu-Cheks a.c. and at bedtime. ADA diet. Resume Lantus 15 units subcutaneously at bedtime. 6. Hypertension. Resume home antihypertensive regimen and monitor clinical response. 7. Prophylaxis. Sequential compression devices while in bed. Pepcid 20 mg p.o. b.i.d. 8. Code status is FULL. Surrogate medical decision maker is the patient's daughter.
[2017-12-20] MEDS: Sodium Chloride 0.9% 1,000 ML IV SCH ×2 (09:31→15:59)
[2017-12-20] MEDS: Timolol 0.5% Ophth Soln 5 ml Bottle R EYE SCH ×2 (09:31→21:26)
[2017-12-20 15:52] LABS: Anion Gap 10 mmol/L (10-20); BUN (Urea Nitrogen) 22 mg/dL (9.8-20.1); Calc. Creatinine Clearance 53 mL/min (70-130); Calcium 8.8 mg/dL (7.8-10.44); Carbon Dioxide 29 mmol/L (23-31); Chloride 99 mmol/L (98-107); Estimated GFR-MDRD 34; Glucose 346 mg/dL (80-115); Magnesium 2.1 mg/dL (1.6-2.6); Sodium 134 mmol/L (136-145)
--- NOTE | 2017-12-20 16:42 | PDOC.PN ---
- Subjective Encounter Start Date: 12/20/17 Encounter Start Time: 15:30 Patient seen and examined for CHAYA/uncontrolled DM2. No CP/SOB/Palpitations. No new complaints. No overnight events - Objective Resuscitation Status: Resuscitation Status FULL:Full Resuscitation MAR Reviewed: Yes Vital Signs & Weight: Vital Signs (12 hours) Temp Pulse Resp BP Pulse Ox 12/20/17 15:42 98.6 F 59 L 16 136/56 L 94 L 12/20/17 11:13 98.6 F 58 L 20 139/63 96 12/20/17 09:31 68 12/20/17 08:24 68 12/20/17 07:33 98.5 F 68 18 12/20/17 07:24 98.7 F 62 16 154/65 H 95 Weight Weight 248 lb 9.6 oz I&O: 12/19/17 12/20/17 12/21/17 06:59 06:59 06:59 Intake Total 678 Output Total 0 1450 Balance 678 -1450 Result Diagrams: 12/20/17 03:57 12/20/17 15:26 Additional Labs: Accuchecks 12/20/17 12/20/17 12/19/17 11:18 00:13 22:57 POC Glucose 369 H Greater than 550 H* Greater than 550 H* Radiology Reviewed by me: Yes (CXR - no infiltrate) EKG Reviewed by me: Yes (Tele SR) Phys Exam - Physical Examination Constitutional: NAD Neck: no nodes, no JVD Respiratory: no wheezing, no rales, no rhonchi no heaves/pulsations Cardiovascular: RRR, no rub no heaves/pulsations Gastrointestinal: soft, non-tender, no distention, positive bowel sounds Musculoskeletal: no edema Neurological: non-focal, normal sensation, moves all 4 limbs Psychiatric: A&O x 3 Dx/Plan (1) CHAYA (acute kidney injury) Code(s): N17.9 - ACUTE KIDNEY FAILURE, UNSPECIFIED Status: Acute Comment: improving (2) Uncontrolled type 2 diabetes mellitus Code(s): E11.65 - TYPE 2 DIABETES MELLITUS WITH HYPERGLYCEMIA Status: Acute Qualifiers: Chronic kidney disease stage: stage 3 (moderate) Comment: improving (3) Hyponatremia Code(s): E87.1 - HYPO-OSMOLALITY AND HYPONATREMIA Status: Acute Comment: prob due to dehydration/hyperglycemia (4) HTN (hypertension) Code(s): I10 - ESSENTIAL (PRIMARY) HYPERTENSION Status: Chronic - Plan out of bed/ambulate, DVT proph w/SCDs Cont sliding scale with Lantus 15 units HS -: Change IVF to 125 ml NS -: AM labs -: Repeat labs reviewed -: Cont current meds as below Review of Systems - Review of Systems Respiratory: negative: Cough, Dry, Shortness of Breath, Hemoptysis, SOB with Excertion, Pleuritic Pain, Sputum, Wheezing Cardiovascular: negative: chest pain, palpitations, orthopnea, paroxysmal nocturnal dyspnea, edema, light headedness, other Gastrointestinal: negative: Nausea, Vomiting, Abdominal Pain, Diarrhea, Constipation, Melena, Hematochezia, Other - Medications/Allergies Allergies/Adverse Reactions: Allergies Allergy/AdvReac Type Severity Reaction Status Date / Time carvedilol [From Coreg] Allergy Intermediate HEART RATE Verified 12/19/17 23:40 TOO LOW Penicillins Allergy Intermediate ITCHING Verified 12/19/17 23:40 Sulfa (Sulfonamide Allergy Intermediate ITCHING Verified 12/19/17 23:40 Antibiotics) Medications: Current Medications Acetaminophen (Tylenol) 1,000 mg PO Q6H PRN PRN Reason: Headache/Fever or Mild Pain Amlodipine Besylate (Norvasc) 10 mg PO DAILY [facility] Last Admin: 12/20/17 08:24 Dose: 10 mg Aspirin (Ecotrin) 81 mg PO DAILY [facility] Last Admin: 12/20/17 08:24 Dose: 81 mg Atorvastatin Calcium (Lipitor) [address] [facility] Clonidine (Catapres) 0.1 mg PO Q4H PRN PRN Reason: Systolic BP > 180 Dextrose/Water (Dextrose 50%) 25 gm SLOW IVP PRN PRN PRN Reason: Hypoglycemia Famotidine (Pepcid) 20 mg PO DAILY [facility] Last Admin: 12/20/17 08:23 Dose: 20 mg Glucagon (Glucagon) 1 mg IM PRN PRN PRN Reason: Hypoglycemia Hydralazine HCl (Apresoline) 10 mg SLOW IVP Q4H PRN PRN Reason: Systolic BP > 180 Hydralazine HCl (Apresoline) 100 mg PO BID [facility] Last Admin: 12/20/17 08:24 Dose: 100 mg Dextrose/Water (D5w) 1,000 mls @ 0 mls/hr IV .Q0M PRN; As Directed PRN Reason: Hypoglycemia Insulin Glargine 15 units/ (Miscellaneous Medication) 0.15 mls @ 0 mls/hr SC [facility] Sodium Chloride (Normal Saline 0.9%) 1,000 mls @ 125 mls/hr IV .Q8H [facility] Last Admin: 12/20/17 15:59 Dose: 1,000 mls Insulin Human Lispro (Humalog) 0 units SC .MODERATE SLIDING SC PRN PRN Reason: Moderate Correctional Scale Last Admin: 12/20/17 11:36 Dose: 10 unit Insulin Human Lispro (Humalog) 0 units SC .BEDTIME SLIDING SC PRN PRN Reason: Bedtime Correctional Scale Isosorbide Mononitrate (Imdur Er) 30 mg PO DAILY [facility] Last Admin: 12/20/17 08:24 Dose: 30 mg Magnesium Oxide (Magnesium Oxide) 400 mg PO DAILY [facility] Last Admin: 12/20/17 08:23 Dose: 400 mg Metoprolol Succinate (Toprol Xl) 50 mg PO DAILY [facility] Last Admin: 12/20/17 08:23 Dose: 50 mg Ondansetron HCl (Zofran Odt) 4 mg PO Q6H PRN PRN Reason: Nausea/Vomiting Ondansetron HCl (Zofran) 4 mg IVP Q6H PRN PRN Reason: Nausea/Vomiting Sodium Chloride (Flush - Normal Saline) 10 ml IVF Q12HR [facility] Last Admin: 12/20/17 09:32 Dose: 10 ml Sodium Chloride (Flush - Normal Saline) 10 ml IVF PRN PRN PRN Reason: Saline Flush Timolol Maleate (Timoptic 0.5% [facility]) 1 drop R EYE BID [facility] Last Admin: 12/20/17 09:31 Dose: 1 drop Vitamin E (Vitamin E) 1,000 units PO DAILY [facility] Last Admin: 12/20/17 09:30 Dose: 1,000 units
[2017-12-20] MEDS: Atorvastatin Calcium 40 MG TAB PO SCH (21:24)
[2017-12-20] MEDS: Insulin Glargine 15 UNITS in Pre-Filled Syringe 1 EACH SC SCH (21:25)
[2017-12-21] MEDS: Sodium Chloride 0.9% 1,000 ML IV SCH ×2 (00:21→07:54)
[2017-12-21] MEDS: HumaLOG 300 UNITS/3 ML VIAL SC PRN ×5 (02:21→21:59)
[2017-12-21 04:58] LABS: Anion Gap 7 mmol/L (10-20); BUN (Urea Nitrogen) 24 mg/dL (9.8-20.1); Calc. Creatinine Clearance 61 mL/min (70-130); Calcium 8.4 mg/dL (7.8-10.44); Carbon Dioxide 27 mmol/L (23-31); Chloride 104 mmol/L (98-107); Estimated GFR-MDRD 40; Glucose 304 mg/dL (80-115); Magnesium 2.1 mg/dL (1.6-2.6); Phosphorus 2.6 mg/dL (2.3-4.7); Potassium 3.7 mmol/L (3.5-5.1); Sodium 134 mmol/L (136-145)
[2017-12-21] MEDS: Famotidine 20 MG TAB PO SCH (08:11)
[2017-12-21] MEDS: Timolol 0.5% Ophth Soln 5 ml Bottle R EYE SCH ×2 (08:11→21:55)
[2017-12-21] MEDS: hydrALAZINE 25 MG TAB PO SCH ×2 (08:12→21:53)
[2017-12-21] MEDS: Aspirin 81 mg Enteric Coated Tablet PO SCH (08:12)
[2017-12-21] MEDS: Magnesium Oxide 400 MG TAB PO SCH (08:12)
[2017-12-21] MEDS: Amlodipine 10 MG TAB PO SCH (08:12)
[2017-12-21] MEDS: Vitami E (Dl,Tocopheryl Acet) 400 UNITS CAP PO SCH (08:18)
[2017-12-21] MEDS: Insulin Glargine 15 UNITS in Pre-Filled Syringe 1 EACH SC SCH ×2 (08:31→21:54)
[2017-12-21] MEDS ORDERED: Sodium Chloride 0.9% 1,000 ML IV SCH (14:48)
[2017-12-21] MEDS: Atorvastatin Calcium 40 MG TAB PO SCH (21:53)
--- NOTE | 2017-12-21 23:43 | PDOC.PN ---
- Subjective Encounter Start Date: 12/21/17 Encounter Start Time: 15:00 Patient seen and examined for CHAYA/Uncontrolled DM2. No new complaints. Feels gen weak. No overnight events - Objective Resuscitation Status: Resuscitation Status FULL:Full Resuscitation MAR Reviewed: Yes Vital Signs & Weight: Vital Signs (12 hours) Temp Pulse Resp BP BP Pulse Ox 12/21/17 21:55 66 144/77 H 12/21/17 21:53 66 144/77 H 12/21/17 18:00 97.8 F 65 16 93 L 12/21/17 16:00 97.8 F 65 16 132/75 93 L 12/21/17 15:25 97.7 F 68 18 153/72 H 95 Weight Weight 248 lb 9.6 oz I&O: 12/20/17 12/21/17 12/22/17 06:59 06:59 06:59 Intake Total 678 3940 2130 Output Total 0 1750 1350 Balance 678 2190 780 Result Diagrams: 12/20/17 03:57 12/22/17 04:50 Additional Labs: Accuchecks 12/21/17 12/21/17 12/21/17 20:21 16:23 11:09 POC Glucose 308 H 318 H 287 H 12/21/17 12/21/17 05:52 02:22 POC Glucose 259 H 309 H Phys Exam - Physical Examination Constitutional: NAD Respiratory: no wheezing, no rhonchi Cardiovascular: RRR, no rub Gastrointestinal: soft, non-tender, positive bowel sounds Musculoskeletal: no edema Neurological: moves all 4 limbs Dx/Plan (1) CHAYA (acute kidney injury) Code(s): N17.9 - ACUTE KIDNEY FAILURE, UNSPECIFIED Status: Acute Comment: improving (2) Uncontrolled type 2 diabetes mellitus Code(s): E11.65 - TYPE 2 DIABETES MELLITUS WITH HYPERGLYCEMIA Status: Acute Qualifiers: Chronic kidney disease stage: stage 3 (moderate) Comment: improving (3) Hyponatremia Code(s): E87.1 - HYPO-OSMOLALITY AND HYPONATREMIA Status: Acute Comment: prob due to dehydration/hyperglycemia (4) HTN (hypertension) Code(s): I10 - ESSENTIAL (PRIMARY) HYPERTENSION Status: Chronic - Plan DVT proph w/SCDs Cont current dose of Insulin -: Cont IVF at 50 ml/hr -: Cont to monitor -: DC in AM if labs ok Review of Systems - Review of Systems Respiratory: negative: Cough, Dry, Shortness of Breath, Hemoptysis, SOB with Excertion, Pleuritic Pain, Sputum, Wheezing Cardiovascular: negative: chest pain, palpitations, orthopnea, paroxysmal nocturnal dyspnea, edema, light headedness, other - Medications/Allergies Allergies/Adverse Reactions: Allergies Allergy/AdvReac Type Severity Reaction Status Date / Time carvedilol [From Coreg] Allergy Intermediate HEART RATE Verified 12/19/17 23:40 TOO LOW Penicillins Allergy Intermediate ITCHING Verified 12/19/17 23:40 Sulfa (Sulfonamide Allergy Intermediate ITCHING Verified 12/19/17 23:40 Antibiotics) Medications: Current Medications Acetaminophen (Tylenol) 1,000 mg PO Q6H PRN PRN Reason: Headache/Fever or Mild Pain Amlodipine Besylate (Norvasc) 10 mg PO DAILY [facility] Last Admin: 12/21/17 08:12 Dose: 10 mg Aspirin (Ecotrin) 81 mg PO DAILY [facility] Last Admin: 12/21/17 08:12 Dose: 81 mg Atorvastatin Calcium (Lipitor) 80 mg PO [facility] Last Admin: 12/21/17 21:53 Dose: 80 mg Clonidine (Catapres) 0.1 mg PO Q4H PRN PRN Reason: Systolic BP > 180 Dextrose/Water (Dextrose 50%) 25 gm SLOW IVP PRN PRN PRN Reason: Hypoglycemia Famotidine (Pepcid) 20 mg PO DAILY [facility] Last Admin: 12/21/17 08:11 Dose: 20 mg Glucagon (Glucagon) 1 mg IM PRN PRN PRN Reason: Hypoglycemia Hydralazine HCl (Apresoline) 10 mg SLOW IVP Q4H PRN PRN Reason: Systolic BP > 180 Hydralazine HCl (Apresoline) 100 mg PO BID [facility] Last Admin: 12/21/17 21:53 Dose: 100 mg Dextrose/Water (D5w) 1,000 mls @ 0 mls/hr IV .Q0M PRN; As Directed PRN Reason: Hypoglycemia Insulin Glargine 15 units/ (Miscellaneous Medication) 0.15 mls @ 0 mls/hr SC [facility] Last Admin: 12/21/17 21:54 Dose: 0.15 mls Insulin Glargine 15 units/ (Miscellaneous Medication) 0.15 mls @ 0 mls/hr SC [facility] Last Admin: 12/21/17 08:31 Dose: 0.15 mls Sodium Chloride (Normal Saline 0.9%) 1,000 mls @ 50 mls/hr IV .Q20H [facility] Last Admin: 12/21/17 14:58 Dose: 1,000 mls Insulin Human Lispro (Humalog) 0 units SC .MODERATE SLIDING SC PRN PRN Reason: Moderate Correctional Scale Last Admin: 12/21/17 16:25 Dose: 8 unit Insulin Human Lispro (Humalog) 0 units SC .BEDTIME SLIDING SC PRN PRN Reason: Bedtime Correctional Scale Last Admin: 12/21/17 21:59 Dose: 4 unit Isosorbide Mononitrate (Imdur Er) 30 mg PO DAILY [facility] Last Admin: 12/21/17 08:12 Dose: 30 mg Magnesium Oxide (Magnesium Oxide) 400 mg PO DAILY [facility] Last Admin: 12/21/17 08:12 Dose: 400 mg Metoprolol Succinate (Toprol Xl) 50 mg PO DAILY [facility] Last Admin: 12/21/17 08:11 Dose: 50 mg Ondansetron HCl (Zofran Odt) 4 mg PO Q6H PRN PRN Reason: Nausea/Vomiting Ondansetron HCl (Zofran) 4 mg IVP Q6H PRN PRN Reason: Nausea/Vomiting Sodium Chloride (Flush - Normal Saline) 10 ml IVF Q12HR [facility] Last Admin: 12/21/17 21:55 Dose: Not Given Sodium Chloride (Flush - Normal Saline) 10 ml IVF PRN PRN PRN Reason: Saline Flush Timolol Maleate (Timoptic 0.5% [facility]) 1 drop R EYE BID [facility] Last Admin: 12/21/17 21:55 Dose: 1 drop Vitamin E (Vitamin E) 200 units PO DAILY [facility] Last Admin: 12/21/17 08:13 Dose: 200 units Vitamin E (Vitamin E) 800 units PO DAILY [facility] Last Admin: 12/21/17 08:18 Dose: 800 units
[2017-12-22 05:47] LABS: Anion Gap 8 mmol/L (10-20); BUN (Urea Nitrogen) 18 mg/dL (9.8-20.1); Calc. Creatinine Clearance 86 mL/min (70-130); Calcium 8.4 mg/dL (7.8-10.44); Carbon Dioxide 25 mmol/L (23-31); Chloride 109 mmol/L (98-107); Estimated GFR-MDRD 60; Glucose 174 mg/dL (80-115); Potassium 3.8 mmol/L (3.5-5.1); Sodium 138 mmol/L (136-145)
[2017-12-22] MEDS: Timolol 0.5% Ophth Soln 5 ml Bottle R EYE SCH (09:41)
[2017-12-22] MEDS: Amlodipine 10 MG TAB PO SCH (09:41)
[2017-12-22] MEDS: hydrALAZINE 25 MG TAB PO SCH (09:42)
[2017-12-22] MEDS: Magnesium Oxide 400 MG TAB PO SCH (09:42)
[2017-12-22] MEDS: Famotidine 20 MG TAB PO SCH (09:42)
[2017-12-22] MEDS: Aspirin 81 mg Enteric Coated Tablet PO SCH (09:42)
[2017-12-22] MEDS: Insulin Glargine 15 UNITS in Pre-Filled Syringe 1 EACH SC SCH (09:43)
[2017-12-22] MEDS: Vitami E (Dl,Tocopheryl Acet) 400 UNITS CAP PO SCH (10:51)
[2017-12-22] MEDS: HumaLOG 300 UNITS/3 ML VIAL SC PRN ×2 (12:37→17:20)
[2017-12-22 14:25] VITALS: TEMP 98.4
[2017-12-22 16:27] VITALS: BP 149/76
--- NOTE | 2017-12-22 16:36 | DIS ---
DATE OF DISCHARGE: 12/22/2017 DISCHARGE DISPOSITION: Home. FOLLOWUP: Follow up with primary care physician, Quyen Clifford, next week. The patient was advised to monitor blood glucose 2-3 times a day and maintain a log. She will benefi t from repeat labs after 1-2 weeks. INPATIENT CONSULTANTS: None. The patient was seen on the day of discharge. Denies any new complaints. No chest pain, shortness o f breath or palpitations. SIGNIFICANT LABORATORIES: 1. Creatinine on admission 2.51, at discharge 1.1. 2. Blood glucose on admission was 1023 with serum osmolality 330. Sodium of 123. Hemoglobin A1c 15 .2. 3. Beta hydroxybutyrate was negative. 4. CBC on admission was 4.8 without any left shift. 5. Chest x-ray was negative for infiltrate. 6. Urinalysis was negative for pyuria. BRIEF HOSPITAL COURSE: The patient is a 67-year-old female with diabetes mellitus type 2, on insulin ; hypertension; morbid obesity, who presented to the hospital with hyperglycemia with blood sugars mo re than 700 found on routine labs. Please refer to the history and physical dated 12/20/2017 for fur ther details. The patient was admitted to the hospital with a diagnosis of severe hyperglycemia with acute kidney i njury. She was started on IV fluids with Lantus 15 units b.i.d. She [facility] 15 [facility]. Her hemoglobin A1c was found to be around 15. She was extensively counseled on diabetes. She a ppears stable for discharge. Blood sugar this morning was 174. Plan of care was discussed with the patient in detail. She stated understanding. FINAL DIAGNOSES: 1. Acute kidney injury secondary to severe dehydration. 2. Uncontrolled diabetes mellitus type 2 with severe hyperglycemia with blood sugar over 1000. 3. Hyponatremia. 4. Chronic kidney disease stage 3. 5. Hypertension. 6. Morbid obesity with a BMI 45.5. 7. Chronic diastolic heart failure. The patient was extensively counseled on symptoms of hypoglycemia. Plan of care was discussed with the patient in detail. She stated understanding.
== END 2017-12-22 17:28 | disposition home or self-care (01) | DRG 638 ==
LOC: ERS 19:31 → OBSVTOIN 21:16 → 2SW 21:16 → T4-A 12-21 15:41
PROVIDERS: ADMIT Family Medicine; ATTEND Family Medicine
DX: E11.65 Type 2 diabetes mellitus with hyperglycemia (principal); N17.9 Acute kidney failure, unspecified; E87.1 Hypo-osmolality and hyponatremia; I13.0 Hypertensive heart and chronic kidney disease with heart failure and stage 1 through stage 4 chronic kidney disease, or unspecified chronic kidney disease; I50.32 Chronic diastolic (congestive) heart failure; Z68.42 Body mass index [BMI] 45.0-49.9, adult; Z79.4 Long term (current) use of insulin; N18.3 Chronic kidney disease, stage 3 (moderate); E66.01 Morbid (severe) obesity due to excess calories; E86.0 Dehydration; E11.22 Type 2 diabetes mellitus with diabetic chronic kidney disease
CPT/HCPCS: 36415; 36416; 71045; 80048; 80053; 80061; 81003; 82010; 82330; 82553; 82803; 83036; 83735; 83930; 84100; 84484; 85007; 85025; 85027; 93005; 96361; 96374; A4216; J1815

== ENCOUNTER 2018-02-13 10:17 | Observation (INO) | payer MEDICARE, MEDICAID ==
[2018-02-13 11:46] LABS: #Eosinphils 0.1 thou/uL (0.0-0.7); #Lymphocytes 2.2 thou/uL (1.20-3.40); #Monocytes 0.7 thou/uL (0.11-0.59); #Neutrophils 4.2 thou/uL (1.40-6.50); %Basophils 0.4 % (0.0-1.0); %Eosinophils 1.9 % (0.0-10.0); %Lymphocytes 29.8 % (21.0-51.0); %Monocytes 9.9 % (0.0-10.0); %Neutrophils 57.9 % (42.0-75.0); Hemoglobin 11.4 g/dL (12.0-16.0); Mean Corpuscular HGB CONC 33.1 g/dL (32.0-36.0); Mean Corpuscular Hemoglobin 30.8 pg (27.0-31.0); Mean Corpuscular Volume 92.9 fL (78.0-98.0); Mean Platelet Volume 7.7 fL (7.4-10.4); Platelet Count 231 thou/uL (130-400); RBC Distribution Width 14.2 % (11.5-14.5); Red Blood Cell (RBC) Count 3.71 mill/uL (4.20-5.40); White Blood Cell (WBC) Count 7.3 thou/uL (4.8-10.8)
[2018-02-13 12:09] LABS: ALT (SGPT) 60 U/L (8-55); AST (SGOT) 65 U/L (5-34); Albumin 3.8 g/dL (3.4-4.8); Alkaline Phosphatase 151 U/L (40-150); Anion Gap 13 mmol/L (10-20); BUN (Urea Nitrogen) 24 mg/dL (9.8-20.1); Bilirubin, Total 0.5 mg/dL (0.2-1.2); CK (CPK) 96 U/L (29-168); Calc. Creatinine Clearance 0 mL/min (70-130); Calcium 9.1 mg/dL (7.8-10.44); Carbon Dioxide 28 mmol/L (23-31); Chloride 102 mmol/L (98-107); Estimated GFR-MDRD 50; Glucose 142 mg/dL (80-115); Lipase 21 U/L (8-78); Potassium 4.6 mmol/L (3.5-5.1); Protein, Total 6.8 g/dL (6.0-8.3); Sodium 138 mmol/L (136-145)
[2018-02-13 12:15] LABS: CKMB 1.3 ng/mL (0-6.6); Troponin I Less than 0.010 ng/mL (< 0.028)
[2018-02-13] MEDS ORDERED: Furosemide 40 MG/4 ML VIAL ONE (12:34)
--- NOTE | 2018-02-13 13:22 | RAD ---
AP VIEW CHEST: INDICATIONS: Dry cough. Shortness of breath. COMPARISON: Prior exam dated 12/19/2017. FINDINGS: There is worsening cardiomegaly, pulmonary vascular congestion, and perihilar interstitial edema. Th ere is a small right tiny left pleural effusion. No pneumothorax is evident. IMPRESSION: Findings suspicious for congestive heart failure. POS: [facility]
[2018-02-13] MEDS ORDERED: Ondansetron ODT 4 MG TAB SL PRN (15:47)
[2018-02-13] MEDS ORDERED: Ondansetron HCl/PF 4 MG/2 ML Vial IVP PRN (15:47)
[2018-02-13 15:53] VITALS: BMI 49.4
[2018-02-13] MEDS ORDERED: Ondansetron ODT 4 MG TAB PO PRN (16:02)
[2018-02-13] MEDS ORDERED: Acetaminophen 325 MG TAB PO PRN (16:02)
[2018-02-13 20:29] LABS: Bilirubin Negative (Negative); Blood, Urine Negative (Negative); Clarity CLEAR (Clear); Glucose, Urine (Dipstick) Negative (Negative); Leukocyte Negative (Negative); Nitrite Negative (Negative); Protein, Urine (Dipstick) Negative (Neg-Trace); Specific Gravity, Urine 1.008 (1.002-1.036); Urobilinogen 0.2 mg/dL (0.2-1.0)
[2018-02-13] MEDS ORDERED: PROVENTIL INHALER 6.7 G (200 INHALATIONS) INH PRN ×2 (21:21→22:09)
[2018-02-13] MEDS ORDERED: Atorvastatin Calcium 40 MG TAB PO SCH (23:30)
[2018-02-13] MEDS ORDERED: hydrALAZINE 25 MG TAB PO SCH (23:30)
[2018-02-14] MEDS ORDERED: Furosemide 40 MG/4 ML VIAL SLOW IVP SCH (06:15)
[2018-02-14 07:50] LABS: #Eosinphils 0.2 thou/uL (0.0-0.7); #Lymphocytes 1.9 thou/uL (1.20-3.40); #Monocytes 0.7 thou/uL (0.11-0.59); #Neutrophils 4.1 thou/uL (1.40-6.50); %Basophils 0.2 % (0.0-1.0); %Lymphocytes 27.6 % (21.0-51.0); %Monocytes 9.9 % (0.0-10.0); %Neutrophils 59.4 % (42.0-75.0); Hemoglobin 10.9 g/dL (12.0-16.0); Mean Corpuscular HGB CONC 32.9 g/dL (32.0-36.0); Mean Corpuscular Hemoglobin 30.5 pg (27.0-31.0); Mean Corpuscular Volume 92.6 fL (78.0-98.0); Mean Platelet Volume 7.6 fL (7.4-10.4); Platelet Count 228 thou/uL (130-400); RBC Distribution Width 14.1 % (11.5-14.5); Red Blood Cell (RBC) Count 3.56 mill/uL (4.20-5.40); White Blood Cell (WBC) Count 6.9 thou/uL (4.8-10.8)
[2018-02-14 08:08] LABS: Anion Gap 10 mmol/L (10-20); BUN (Urea Nitrogen) 24 mg/dL (9.8-20.1); Calc. Creatinine Clearance 90 mL/min (70-130); Calcium 9.2 mg/dL (7.8-10.44); Carbon Dioxide 31 mmol/L (23-31); Chloride 99 mmol/L (98-107); Estimated GFR-MDRD 57; Glucose 126 mg/dL (80-115); Potassium 4.4 mmol/L (3.5-5.1); Sodium 136 mmol/L (136-145)
[2018-02-14] MEDS ORDERED: Aspirin 81 mg Enteric Coated Tablet PO SCH (09:00)
[2018-02-14] MEDS ORDERED: hydrALAZINE 25 MG TAB PO SCH (09:00)
[2018-02-14] MEDS ORDERED: Insulin Glargine 30 UNITS in Pre-Filled Syringe 1 EACH SC SCH ×2 (09:00→21:00)
[2018-02-14] MEDS ORDERED: Isosorbide Dinitrate 20 MG TAB PO SCH (09:00)
[2018-02-14] MEDS ORDERED: Ascorbic Acid 500 mg Chewable Tablet PO SCH (09:00)
[2018-02-14] MEDS ORDERED: Amlodipine 10 MG TAB PO SCH (09:00)
[2018-02-14] MEDS ORDERED: Magnesium Oxide 400 MG TAB PO SCH (09:00)
--- NOTE | 2018-02-14 10:31 | HP ---
CHIEF COMPLAINT: Shortness of breath. HISTORY OF PRESENT ILLNESS: This patient is a 59-year-old female with a history of some chronic diastolic dysfunction. She presented via the emergency department. Patient reports for the past week or so, she has been experiencing worsening lower extremity swelling with some shortness of breath. She reports that she does have a history of some asthma which she requires intermittent oxygen at home. The patient denied any associated symptoms, but ultimately presented to her primary care provider this morning and based on her symptoms were felt to be having an exacerbation of heart failure and referred to the emergency department. The patient reports that she does typically weigh herself at home. She has not been giving any response or any changes in her weight in general. PAST MEDICAL HISTORY: Notable for diabetes mellitus, chronic diastolic heart failure, hypertension, dyslipidemia, morbid obesity, and asthma. PAST SURGICAL HISTORY: Right ankle repair, hysterectomy, eye surgery. FAMILY HISTORY: Noticeable for diabetes and hypertension. SOCIAL HISTORY: The patient denies alcohol, drugs or tobacco use. ALLERGIES: CARVEDILOL, PENICILLIN and SULFA. MEDICATIONS: Hydralazine 100 mg p.o. b.i.d., pantoprazole 40 mg a day, Lasix 40 mg p.o. daily, atorvastatin 80 mg at bedtime, vitamin D 1000 units q. day, metoprolol 50 mg p.o. daily, magnesium oxide 400 mg daily, isosorbide dinitrate 30 mg p.o. daily, Lantus 30 units subcu b.i.d., aspirin 81 mg q. day, vitamin C 1000 mg q. day, Norvasc 10 mg q. day, ProAir HFA 2 puffs every 6 hourly p.r.n. shortness of breath. PHYSICAL EXAMINATION: VITAL SIGNS: Temperature 97.6, pulse 58, respirations 20, O2 sat 95% on 2 L via nasal cannula, blood pressure is 159/70. GENERAL APPEARANCE: Age appropriate female. She is morbidly obese. She is in no distress. She is awake, alert, very pleasant, cooperative. HEENT: PERRL. No OP lesions. NECK: Supple and symmetric. Midline trachea. HEART: Regular with no murmurs, gallops or rubs. LUNGS: Clear bilaterally with no wheezes or rales. ABDOMEN: Soft, nontender, nondistended with positive bowel sounds. No masses or organomegaly. EXTREMITIES: Reveal 1+ pitting edema of the lower extremities. LABORATORY DATA: White count 7.3, hemoglobin 11.4, platelets 231. Chemistries notable for BUN 24, creatinine 1.28, glucose 142, AST 65, ALT is 60, alkaline phosphatase 151. BNP 316. Troponin less than 0.01. Lipase 21. Chest x-ray shows finding suspicious for congestive heart failure with some pulmonary vascular congestion. IMPRESSION AND PLAN: 1. Shortness of breath secondary to volume overload as manifest by peripheral edema and some pulmonary vascular congestion. Patient did receive a dose of IV Lasix in the emergency department and is already feeling somewhat better. Counseled the patient regarding the need to use the daily weights as a guide to titrate her Lasix dosing in order to maintain a specific weight range as it is a manifestation of her fluid status. Likely need to give some more IV Lasix tomorrow in order to get her back down to an appropriate dry weight. This is likely secondary to her exacerbation of her chronic diastolic dysfunction with preserved ejection fraction. 2. History of asthma. Patient does not appear to be manifesting symptoms of asthma exacerbation, although her usual medicines will be continued. 3. Diabetes mellitus. We will continue with her usual home dose of insulin. The patient's last hemoglobin A1c on this record was > 15 indicating very poor control. 4. Hypertension. Continue with her usual home medications including amlodipine and beta ebenezer. Amlodipine certainly may be exacerbating some of the peripheral edema. DISPOSITION: The patient would like to be a do not intubate, although she has a goal to modest amount of chest percussions. Her surrogate would be her daughter, Imani, whose number is [phone]. [facility]
[2018-02-14 12:20] VITALS: BP 129/62; TEMP 98.8
[2018-02-14] MEDS ORDERED: Atorvastatin Calcium 40 MG TAB PO SCH (21:00)
--- NOTE | 2018-02-17 00:27 | DIS ---
DATE OF ADMISSION: 02/13/2018 DATE OF DISCHARGE: 02/14/2018 DISCHARGE DIAGNOSES: 1. Shortness of breath secondary to volume overload. 2. Diastolic dysfunction. 3. History of asthma. 4. History of diabetes. 5. History of hypertension. HISTORY: This patient is a 67-year-old female with a history of diastolic dysfunction, which has bee n fairly chronic resulting in several exacerbations manifested with anasarca type edema. The patient presented to the emergency department on the day of admission reporting 1 week of worsening lower ex tremity edema and shortness of breath. She was noted on her exam to have peripheral edema as well as significant morbid obesity. Her BUN was 24, creatinine was 1.28. Chest x-ray showed findings suspi cious for congestive heart failure with pulmonary vascular congestion. HOSPITAL COURSE: The patient was given a dose of IV Lasix in the emergency department and responded fairly well to that. By the time she reached the floor, she was already having some improvement in h er symptoms. She continued to receive some diuresis and her symptoms continued to improve throughout the day. When she was able to get up and around without any significant difficulty and shortness of breath, she was felt to be stable. PHYSICAL EXAMINATION: VITAL SIGNS: Temperature was 98.8, pulse 59, respirations 20, O2 sat 95% on room air, BP was 129/62. GENERAL: She is awake and alert. HEART: Regular without murmur. LUNGS: Clear, although limited on exam by the body habitus. ABDOMEN: Soft and nontender. EXTREMITIES: Still had some trace edema. LABORATORY DATA: Repeat laboratory; BUN and creatinine were 24 and 1.4. Blood sugars ranged from 12 8-195. Patient was felt to be stable for discharge to home. Her activity level was as tolerated. She will be on a heart healthy diet. DISCHARGE MEDICATIONS: Include Protonix 40 mg every day, amlodipine 10 mg every day, hydralazine 100 mg b.i.d., Lasix 40 mg every day, metoprolol 50 mg every day, atorvastatin 80 mg at bedtime, aspirin 81 mg daily, magnesium 400 mg daily, vitamin E 1000 mg every day, vitamin C 1000 mg every day, Lant us 30 units subcu at bedtime, albuterol 2 puffs q.6 hours p.r.n., isosorbide dinitrate 30 mg every da y, Lantus 30 units subcutaneously q.a.m. Patient is to follow up with her primary care provider within 1 week. She should return to the emerg ency department should she have any problems prior to that time.
== END 2018-02-14 15:43 | disposition home or self-care (01) ==
LOC: ERS 10:17 → 2SW 15:00
PROVIDERS: ADMIT Internal Medicine; ATTEND Internal Medicine
DX: R06.02 Shortness of breath (principal); I11.9 Hypertensive heart disease without heart failure; E11.649 Type 2 diabetes mellitus with hypoglycemia without coma; E66.9 Obesity, unspecified; J44.9 Chronic obstructive pulmonary disease, unspecified; E78.00 Pure hypercholesterolemia, unspecified; Z79.82 Long term (current) use of aspirin; Z79.4 Long term (current) use of insulin; Z79.899 Other long term (current) drug therapy; Z88.0 Allergy status to penicillin; Z88.2 Allergy status to sulfonamides; Z88.8 Allergy status to other drugs, medicaments and biological substances; Z68.43 Body mass index [BMI] 50.0-59.9, adult
CPT/HCPCS: 71045; 80048; 80053; 81003; 82550; 82553; 82962; 83690; 83880; 84484; 85025 ×2; 93005; 94640; 96374; 96376; 99285; G0378; 36415; 36416; J1940

== ENCOUNTER 2019-03-05 11:43 | Day surgery (SDC) | payer MEDICARE, MEDICAID ==
[~2019-03-05 11:43] MED LIST changes: +EPINEPHrine 0.3 MG in Ophthalmic Irrigation Solution 500 ML IVP SCH; -Fentanyl 100 MCG/2 ML VIAL ONE; -Heparin 10,000 UNITS/1 ML VIAL ONE; -Iopamidol 370 76% 100 ML VIAL ONE; -Iopamidol 370 76% 50 ML VIAL FS ONE; -Lidocaine 1% (PF) 30 ML VIAL ONE; -Metoprolol Tartrate 5 MG/5 ML VIAL ONE; -Midazolam HCl 2 mg/2 ml Vial ONE; -Nitroglycerin 4.9 GM Bottle ONE; -Protamine Sulfate 50 MG/5 ML VIAL ONE; -hydrALAZINE 20 MG/ML VIAL ONE
[2019-03-05] MEDS ORDERED: Phenylephrine 2.5% Ophth Soln 5 ML BOT ONE (13:21)
[2019-03-05] MEDS ORDERED: Cyclopentolate 1% Opth Drop 2 ML BOT ONE (13:21)
[2019-03-05] MEDS ORDERED: HYDROmorphone 0.5 MG/0.5 ML SYRINGE ONE (13:49)
[2019-03-05] MEDS ORDERED: Dextrose 50% Abboject 50 ML SYRINGE ONE (13:49)
[2019-03-05] MEDS ORDERED: Midazolam HCl 2 mg/2 ml Vial ONE (13:51)
[2019-03-05] MEDS ORDERED: PROPOFOL 20 ML ONE (13:51)
--- NOTE | 2019-03-05 17:10 | OP ---
DATE OF PROCEDURE: 03/05/2019 PREOPERATIVE DIAGNOSES: Glaucoma and vitreous hemorrhage, right eye. POSTOPERATIVE DIAGNOSES: Glaucoma and vitreous hemorrhage, right eye. PROCEDURE PERFORMED: Pars plana vitrectomy, membrane peel, tube shunt, scleral patch graft, right eye. ANESTHESIA: Local with monitored anesthesia care. PROCEDURE IN DETAIL: The patient was identified in the preoperative holding area. Appropriate informed consent for the planned surgical procedure on the right eye had been obtained. The patient was transported to the operative suite. Appropriate cardiopulmonary monitoring was established. Local anesthesia obtained using retrobulbar block. The patient was prepped and draped in usual sterile manner for ophthalmic surgery, right eye. Lid speculum was placed in the right eye. A 25-gauge trocar was placed in the conjunctiva, sclera supratemporally, inferotemporally, supranasally. Infusion line was placed inferotemporally. Light pipe vitreous cutter was inserted into the eye. Core vitrectomy was performed. The FP7 tube shunt was secured superior temporal underneath the conjunctiva using 5-0 Mersilene sutures. Posterior hyaloid face was peeled off the macula. Tractional membranes were peeled off the retina. Panretinal photocoagulation was placed into all non-macular areas of the retina. tube shunt was introduced into the eye 4 mm posterior to limbus superiorly. A scleral patch Tutoplast graft was placed over the entry site, fixated, and placed with 7-0 Vicryl suture. Conjunctiva was closed with 6-0 plain gut suture. Retrobulbar Kenalog and subconjunctival Ancef were placed. Antibiotic ointment was placed. The eye was patched and shielded. The patient was taken to postoperative recovery unit in good condition. The patient was advised to keep patch and shield on, avoid lifting or bending. Followup appointment with Dr. Cummings. Job ID: [id number]
== END 2019-03-05 16:13 | disposition home or self-care (01) ==
LOC: SDC 11:43
PROVIDERS: ATTEND Ophthalmology Retina Specialist
PROC: 08T43ZZ Resection of Right Vitreous, Percutaneous Approach (ICD-10-PCS; principal; 2019-03-05)
PROC: 08NE3ZZ Release Right Retina, Percutaneous Approach (ICD-10-PCS; 2019-03-05)
PROC: 08123J4 Bypass Right Anterior Chamber to Sclera with Synthetic Substitute, Percutaneous Approach (ICD-10-PCS; 2019-03-05)
DX: H40.9 Unspecified glaucoma (principal); H43.11 Vitreous hemorrhage, right eye; E66.9 Obesity, unspecified; Z68.41 Body mass index [BMI] 40.0-44.9, adult; Z79.4 Long term (current) use of insulin; Z79.82 Long term (current) use of aspirin; Z79.899 Other long term (current) drug therapy; Z88.0 Allergy status to penicillin; Z88.2 Allergy status to sulfonamides; Z88.8 Allergy status to other drugs, medicaments and biological substances; Z98.49 Cataract extraction status, unspecified eye
CPT/HCPCS: 66180; 67042; 82962; L8612; 36416; J0171; J1170; J2250; J2704

== ENCOUNTER 2019-07-13 00:30 | Emergency (ER) | payer MEDICARE, MEDICAID ==
[2019-07-13] MEDS ORDERED: Furosemide 20 MG/2 ML VIAL ONE (01:15)
[2019-07-13 01:18] LABS: #Basophils 0.1 thou/uL (0.0-0.2); #Eosinphils 0.2 thou/uL (0.0-0.7); #Lymphocytes 2.9 thou/uL (1.20-3.40); #Monocytes 0.8 thou/uL (0.11-0.59); #Neutrophils 6.1 thou/uL (1.40-6.50); %Basophils 0.7 % (0.0-1.0); %Eosinophils 1.6 % (0.0-10.0); %Lymphocytes 28.6 % (21.0-51.0); %Monocytes 8.1 % (0.0-10.0); %Neutrophils 60.9 % (42.0-75.0); Hemoglobin 11.8 g/dL (12.0-16.0); Mean Corpuscular HGB CONC 33.1 g/dL (32.0-36.0); Mean Corpuscular Hemoglobin 30.9 pg (27.0-31.0); Mean Corpuscular Volume 93.2 fL (78.0-98.0); Mean Platelet Volume 8.5 fL (7.4-10.4); Platelet Count 200 thou/uL (130-400); RBC Distribution Width 15.4 % (11.5-14.5); White Blood Cell (WBC) Count 10.1 thou/uL (4.8-10.8)
[2019-07-13 01:51] LABS: ALT (SGPT) 33 U/L (8-55); AST (SGOT) 32 U/L (5-34); Albumin 3.8 g/dL (3.4-4.8); Alkaline Phosphatase 117 U/L (40-110); Anion Gap 17 mmol/L (10-20); BUN (Urea Nitrogen) 28 mg/dL (9.8-20.1); Bilirubin, Total 0.5 mg/dL (0.2-1.2); Calc. Creatinine Clearance 0 mL/min (70-130); Calcium 9.2 mg/dL (7.8-10.44); Carbon Dioxide 23 mmol/L (23-31); Chloride 104 mmol/L (98-107); Estimated GFR-MDRD 41; Globulin 3.8 g/dL (2.4-3.5); Glucose 294 mg/dL (83-110); Potassium 4.7 mmol/L (3.5-5.1); Protein, Total 7.6 g/dL (6.0-8.3); Sodium 139 mmol/L (136-145)
--- NOTE | 2019-07-13 08:22 | RAD ---
PORTABLE CHEST: DATE: 07/13/2019. PROVIDED CLINICAL HISTORY: Shortness of breath. FINDINGS: Comparison 02/13/2018. The cardiac silhouette remains enlarged. Vascular calcification involves the aortic arch. Evaluation is limited by patient body habitus. Prominence of the pulmonary vasculature and pulmonary interstitium. No evidence for large pleural effusion. No evidence for pneumothorax. IMPRESSION: Cardiomegaly and findings suggesting congestive failure. Followup is recommended. POS: OFF
== END 2019-07-13 03:20 | disposition home or self-care (01) ==
LOC: ERS 00:30
DX: I13.0 Hypertensive heart and chronic kidney disease with heart failure and stage 1 through stage 4 chronic kidney disease, or unspecified chronic kidney disease (principal); E11.22 Type 2 diabetes mellitus with diabetic chronic kidney disease; N18.9 Chronic kidney disease, unspecified; I50.9 Heart failure, unspecified; E78.00 Pure hypercholesterolemia, unspecified; E78.5 Hyperlipidemia, unspecified; Z79.82 Long term (current) use of aspirin; Z79.51 Long term (current) use of inhaled steroids; Z79.899 Other long term (current) drug therapy; Z79.4 Long term (current) use of insulin
CPT/HCPCS: 36415; 71045; 80053; 83880; 84484; 85025; 93005; 94760; 96374; J1940

== ENCOUNTER 2019-07-24 15:13 | Inpatient (IN) | payer MEDICARE, MEDICAID ==
[2019-07-24 16:13] LABS: #Lymphocytes 1.3 thou/uL (1.20-3.40); #Monocytes 0.4 thou/uL (0.11-0.59); #Neutrophils 5.5 thou/uL (1.40-6.50); %Basophils 0.3 % (0.0-1.0); %Eosinophils 0.6 % (0.0-10.0); %Lymphocytes 17.7 % (21.0-51.0); %Monocytes 5.4 % (0.0-10.0); %Neutrophils 75.9 % (42.0-75.0); Hemoglobin 12.4 g/dL (12.0-16.0); Mean Corpuscular HGB CONC 32.5 g/dL (32.0-36.0); Mean Corpuscular Hemoglobin 31.1 pg (27.0-31.0); Mean Corpuscular Volume 95.5 fL (78.0-98.0); Mean Platelet Volume 8.2 fL (7.4-10.4); Platelet Count 245 thou/uL (130-400); RBC Distribution Width 16.4 % (11.5-14.5); Red Blood Cell (RBC) Count 3.98 mill/uL (4.20-5.40); White Blood Cell (WBC) Count 7.2 thou/uL (4.8-10.8)
[2019-07-24 16:37] LABS: ALT (SGPT) 94 U/L (8-55); AST (SGOT) 75 U/L (5-34); Alkaline Phosphatase 168 U/L (40-110); Anion Gap 16 mmol/L (10-20); BUN (Urea Nitrogen) 35 mg/dL (9.8-20.1); Bilirubin, Total 0.5 mg/dL (0.2-1.2); Calc. Creatinine Clearance 0 mL/min (70-130); Calcium 9.3 mg/dL (7.8-10.44); Carbon Dioxide 25 mmol/L (23-31); Chloride 104 mmol/L (98-107); Estimated GFR-MDRD 46; Globulin 3.5 g/dL (2.4-3.5); Glucose 88 mg/dL (83-110); Potassium 4.5 mmol/L (3.5-5.1); Protein, Total 7.5 g/dL (6.0-8.3); Sodium 140 mmol/L (136-145)
[2019-07-24] MEDS ORDERED: Famotidine 20 MG TAB ONE (18:19)
[2019-07-24] MEDS ORDERED: diphenhydrAMINE 25 MG CAP ONE (18:19)
--- NOTE | 2019-07-24 18:46 | RAD ---
PORTABLE CHEST: 07/24/19 COMPARISON: 07/13/19 study. HISTORY: Swollen mouth and tongue, weakness. COMPARISON: 07/13/19 study. Heart size is enlarged. There are atherosclerotic changes of the aorta. The lungs are clear of infilt rates. No signs of failure. IMPRESSION: Cardiomegaly. POS: [facility]
[2019-07-24] MEDS ORDERED: Senokot S 8.6-50 MG TAB PO PRN (20:05)
[2019-07-24] MEDS ORDERED: Dextrose 50% Abboject 50 ML SYRINGE SLOW IVP PRN (20:15)
[2019-07-24] MEDS ORDERED: Dextrose 5% in Water 1,000 ML IV PRN (20:15)
[2019-07-24 21:11] VITALS: BMI 56.9
[2019-07-24] MEDS: Famotidine 20 MG TAB PO SCH (21:26)
[2019-07-24 22:18] LABS: Troponin I Less than 0.010 ng/mL (< 0.028)
--- NOTE | 2019-07-24 23:03 | HP ---
PRIMARY CARE PHYSICIAN: Katy Deleon. CHIEF COMPLAINT: Swollen face and generalized weakness. HISTORY OF PRESENT ILLNESS: Ms. Orozco is a 69-year-old female, who reported to the emergency room today via EMS for generalized weakness and also had some swelling to her face, tongue, eyes around 5 a.m. this morning. When EMS got there, they report that she had her initial blood glucose of 50, and with all of this, they gave her some epinephrine, 50 mg Benadryl, 125 mg of Solu-Medrol, and then for the glucose, some D10 and 2 L of normal saline, and she reports that she feels better generally after these medications. Her workup in the ER generally was unremarkable. Chest x-ray showed some cardiomegaly. BNP was elevated at 558.6. Comp met with BUN of 35 and creatinine of 1.38, which is about at baseline when checked with [facility]. Her AST is 75 and ALT is 94. These were elevated in 2017. We will continue to monitor these. Her alk phos is 168, and this was elevated as well in 2018. Glucose here once she got here via EMS was 88 and then 91. She was eating dinner during exam. Her initial EKG in the emergency room showed AFib with premature ventricular complexes, beats per minute was 100. Second EKG showed sinus tach, beats per minute 111, with some fusion complexes, nonspecific ST- and T-wave abnormality. Her pulse was 66 before she went up to the floor. ED reports that the swelling had improved initially, but then started to return. So, the patient will be admitted to the observation unit for further management. PAST MEDICAL HISTORY: Pertinent for chronic renal disease, congestive heart failure, hypertension, high cholesterol, and hyperlipidemia. PAST SURGICAL HISTORY: Right ankle surgery, hysterectomy, and 2 eye surgeries. PSYCHIATRIC HISTORY: None. SOCIAL HISTORY: Lives at home alone. Denies any alcohol or drug use. Has no smoking history. REVIEW OF SYSTEMS: The patient reports a generalized weakness. Denies any chest pain. Does report some swelling in her abdomen, generalized feeling of feeling fluid overloaded. Reports that she was seen in this ER on Saturday, was given an extra dose of Lasix to take for 3 days. Reports that she did do that and felt slightly better. She does report increase in urination after the extra dose of Lasix. Denied any other changes to her medicines. Denies any fevers or chills. Denies any abdominal pain, nausea, vomiting or diarrhea. All systems are reviewed and are negative unless mentioned in the HPI or as above. ALLERGIES: COREG, PENICILLIN, AND SULFA. CURRENT MEDICATIONS: These still need to be verified. 1. Amlodipine 10 mg p.o. once a day. 2. Aspirin 81 mg p.o. once a day. 3. Hydralazine 100 mg p.o. b.i.d. 4. Lantus. 5. ProAir 2 puffs q.4 hours as needed. 6. Atorvastatin 80 mg p.o. once a day. 7. Lasix 40 mg once a day. 8. Prilosec 40 mg once a day. 9. Isosorbide 30 mg once a day. 10. Metoprolol succinate 50 mg p.o. once a day. PHYSICAL EXAMINATION: VITAL SIGNS: Blood pressure 164/68, pulse 66, respirations 16, temperature 98.1, and pO2 sats 97% on 2 L. CONSTITUTIONAL: The patient is nontoxic appearing. She is eating dinner, sitting up, is alert and oriented x3. HEENT: Head is atraumatic and normocephalic. Eyes; pupils are equally round and reactive to light, eyelids are swollen bilaterally, conjunctiva is normal. ENT; mouth exam is normal. Overt facial swelling is not readily apparent other than eyelid. NECK: Normal range of motion. Trachea is midline. RESPIRATORY/CHEST: Breath sounds are clear. Chest expansion is equal. CARDIOVASCULAR: Regular rate and rhythm. Heart sounds are normal. ABDOMEN: Nontender. Bowel sounds are heard. EXTREMITIES: Upper extremity; range of motion is normal, sensation is intact, radial pulses are normal. Lower extremity; normal inspection, normal range of motion, pedal pulses are normal, +1 edema is noted. NEUROLOGICAL: The patient is alert and oriented to person, place, and time. Speech is normal. SKIN: Warm, dry, and normal in color, the skin that is visualized. PSYCHIATRIC: She has a normal affect. PLAN/ASSESSMENT: 1. Possible angioedema, that responded to steroids, Benadryl, and Pepcid. We will continue this. Solu-Medrol 40 q.8 and Benadryl and Pepcid. We are going to hold the Lasix for now. She is allergic to sulfa. Dr. Hernandes thought maybe there is some sulfa component to the Lasix and the extra doses might have attributed to the angioedema. We will hold those for now. We have added Bumex b.i.d., to start in the morning. We will keep her on a tele monitor for monitoring. 2. Congestive heart failure without any acute signs of fluid overload, although the patient does state that she feels like her abdomen is more swollen than normal. We will hold the Lasix, add Bumex. We will order an echocardiogram. The patient and family reports that she has not had one in the last year. Reports that Dr. Hilton is her registered nurse maternity. 3. Diabetes with sliding scale insulin, Accu-Cheks a.c. and at bedtime. The patient was hypoglycemic when she arrived in the ER, so we will keep a close eye on this. Hold the Lantus for now and restart if her sugars stabilize. 4. Hypertension. We will restart her home medications. 5. History of asthma. Hopefully, the steroids that we are giving her for the angioedema will help with any shortness of breath attributed to her asthma. 6. Hyperlipidemia. We will restart the atorvastatin. 7. Chronic kidney disease. This appears stable. We will recheck lab work in a.m. 8. Potential EKG changes in the ER. We will trend troponins. Echocardiogram is mentioned in #1. 9. Deep venous thrombosis and gastrointestinal prophylaxis started. 10. Case discussed with Dr. Hernandes, who agrees with plan. 11. Hospital course is dependent on clinical findings. Job ID: [id number]
[2019-07-24] MEDS: methylPREDNISolone Sod Succ 40 MG VIAL IVP SCH (23:10)
[2019-07-25 01:45] LABS: Troponin I Less than 0.010 ng/mL (< 0.028)
[2019-07-25 05:27] LABS: ALT (SGPT) 71 U/L (8-55); AST (SGOT) 33 U/L (5-34); Albumin 3.4 g/dL (3.4-4.8); Alkaline Phosphatase 146 U/L (40-110); Anion Gap 18 mmol/L (10-20); BUN (Urea Nitrogen) 40 mg/dL (9.8-20.1); Bilirubin, Total 0.3 mg/dL (0.2-1.2); Calc. Creatinine Clearance 69 mL/min (70-130); Calcium 8.7 mg/dL (7.8-10.44); Carbon Dioxide 19 mmol/L (23-31); Chloride 105 mmol/L (98-107); Estimated GFR-MDRD 37; Globulin 3.1 g/dL (2.4-3.5); Glucose 308 mg/dL (83-110); Potassium 5.5 mmol/L (3.5-5.1); Protein, Total 6.5 g/dL (6.0-8.3); Sodium 136 mmol/L (136-145)
[2019-07-25] MEDS ORDERED: Bumetanide 1 MG/4 ML VIAL IVP SCH (06:00)
[2019-07-25 06:18] LABS: #Lymphocytes 1.2 thou/uL (1.20-3.40); #Monocytes 0.3 thou/uL (0.11-0.59); #Neutrophils 7.2 thou/uL (1.40-6.50); %Basophils 0.1 % (0.0-1.0); %Eosinophils 0.5 % (0.0-10.0); %Lymphocytes 13.4 % (21.0-51.0); %Monocytes 3.7 % (0.0-10.0); %Neutrophils 82.2 % (42.0-75.0); Hemoglobin 11.3 g/dL (12.0-16.0); Mean Corpuscular HGB CONC 32.5 g/dL (32.0-36.0); Mean Corpuscular Hemoglobin 30.9 pg (27.0-31.0); Mean Platelet Volume 8.8 fL (7.4-10.4); Platelet Count 238 thou/uL (130-400); Red Blood Cell (RBC) Count 3.66 mill/uL (4.20-5.40); White Blood Cell (WBC) Count 8.8 thou/uL (4.8-10.8)
[2019-07-25] MEDS: methylPREDNISolone Sod Succ 40 MG VIAL IVP SCH (06:30)
[2019-07-25] MEDS: HumaLOG 300 UNITS/3 ML VIAL SC PRN ×3 (06:30→22:14)
[2019-07-25] MEDS ORDERED: predniSONE 20 MG TAB PO SCH (09:00)
--- NOTE | 2019-07-25 10:12 | PDOC.HOSPP ---
- Subjective Encounter Date: 07/25/19 Encounter Time: 10:07 Subjective: 69 y/o female with HTN, CKD 3, morbid obesity, JOSEPHINE, chronic diastolic heart failure admitted with acute onset of facial and tong swelling associated with dysarthria and generalized weakness. Treated with epinephrine, steroid and benadryl for presumed angioedema with improvement. Also noted to have paroxysmal atrial fibrillation. - Objective Vital Signs & Weight: Vital Signs (12 hours) Temp Pulse Resp BP Pulse Ox 07/25/19 07:35 99.2 F 72 24 H 154/68 H 93 L 07/25/19 04:35 98.4 F 77 16 147/64 H 96 Weight Weight 311 lb I&O: 07/24/19 07/25/19 07/26/19 06:59 06:59 06:59 Output Total 1000 Balance -1000 Result Diagrams: 07/25/19 06:03 07/25/19 04:45 Additional Labs: Accuchecks 07/24/19 07/24/19 21:11 16:32 POC Glucose 276 H 91 Hospitalist ROS - Medication Medications: Active Medications Generic Name Dose Route Start Last Admin Trade Name Freq PRN Reason Stop Dose Admin Bumetanide 1 mg 07/25/19 06:00 07/25/19 06:32 Bumex IVP 1 mg 0600,1400 ANASTASIA Administration Famotidine 20 mg 07/24/19 21:00 07/24/19 21:26 Pepcid PO 20 mg 2100 ANASTASIA Administration Insulin Human Lispro 0 units 07/24/19 20:15 07/25/19 06:30 Humalog SC 5 unit .MILD SLIDING SCALE PRN Administration Mild Correctional Scale - Exam General Appearance: awake alert General - other findings: morbidly obese Eye: anicteric sclera ENT: normocephalic atraumatic Neck: symmetric Neck - other findings: short thick neck Heart: RRR Respiratory: no wheezes, no rales, no ronchi, normal chest expansion, no tachypnea Respiratory - other findings: diminished air movement both bases Gastrointestinal: soft, non-tender, non-distended, normal bowel sounds Gastrointestinal - other findings: morbidly obese Extremities: no cyanosis, no edema Neurological: cranial nerve grossly intact, no focal deficits Psychiatric: A&O x 3 Hosp A/P (1) Hyperkalemia Code(s): E87.5 - HYPERKALEMIA Status: Acute (2) Paroxysmal atrial fibrillation Code(s): I48.0 - PAROXYSMAL ATRIAL FIBRILLATION Status: Acute (3) Angioedema Code(s): T78.3XXA - ANGIONEUROTIC EDEMA, INITIAL ENCOUNTER Status: Acute (4) CHAYA (acute kidney injury) Code(s): N17.9 - ACUTE KIDNEY FAILURE, UNSPECIFIED Status: Acute (5) Uncontrolled type 2 diabetes mellitus Code(s): E11.65 - TYPE 2 DIABETES MELLITUS WITH HYPERGLYCEMIA Status: Acute (6) CKD (chronic kidney disease), stage III Code(s): N18.3 - CHRONIC KIDNEY DISEASE, STAGE 3 (MODERATE) Status: Chronic (7) Chronic diastolic (congestive) heart failure Code(s): I50.32 - CHRONIC DIASTOLIC (CONGESTIVE) HEART FAILURE Status: Chronic (8) Diabetes type 2, controlled Code(s): E11.9 - TYPE 2 DIABETES MELLITUS WITHOUT COMPLICATIONS Status: Chronic (9) HTN (hypertension) Code(s): I10 - ESSENTIAL (PRIMARY) HYPERTENSION Status: Chronic (10) Morbid obesity with BMI of 50.0-59.9, adult Code(s): E66.01 - MORBID (SEVERE) OBESITY DUE TO EXCESS CALORIES; Z68.43 - BODY MASS INDEX (BMI) 50.0-59.9, ADULT Status: Chronic (11) Abnormal LFTs Code(s): R94.5 - ABNORMAL RESULTS OF LIVER FUNCTION STUDIES Status: Acute - Plan Restart lantus DC steroid Start alkali therapy. give a dose of kayexalate Repeat K later today. Consult Nephrology and cardiology. Await echo
[2019-07-25] MEDS ORDERED: Sodium Bicarbonate Tab 325 MG TAB PO SCH (10:30)
[2019-07-25] MEDS ORDERED: Furosemide 40 MG/4 ML VIAL SLOW IVP SCH (10:30)
[2019-07-25] MEDS ORDERED: Insulin Glargine 30 UNITS in Pre-Filled Syringe 1 EACH SC SCH ×2 (10:30→21:00)
--- NOTE | 2019-07-25 12:03 | CON ---
DATE OF CONSULTATION: REASON FOR CONSULTATION: Hyperkalemia and acute renal failure. HISTORY OF PRESENT ILLNESS: A very pleasant 69-year-old female presented to the hospital with generalized swelling and shortness of breath. The patient's creatinine increased from 1.3 to 1.6 with hyperkalemia and acidosis. The patient had some tachyarrhythmia. PAST MEDICAL HISTORY: Significant for CKD, congestive heart failure, hyperlipidemia, hysterectomy, ankle surgery, eye surgery. SOCIAL HISTORY: No alcohol or drug use. FAMILY HISTORY: Negative for ESRD. ALLERGIES: REVIEWED. HOME MEDICATIONS: List reviewed. HOSPITAL MEDICATIONS: List reviewed. REVIEW OF SYSTEMS: A 15-point review of system was performed, negative except for positives noted above. GENERAL: HEAD: NECK: No swelling or lumps. NOSE: No epistaxis or discharge. EYES: No diplopia or pain. RESPIRATORY: CARDIOVASCULAR: GASTROINTESTINAL: /BRAZER FURNACE: MUSCULOSKELETAL: No joint pain. NEUROPSYCHIATIC SYSTEMS: No suicidal ideation. No ideation. SKIN: Denies any rash or ulcer. CONSTITUTIONAL: No fever or chills. PHYSICAL EXAMINATION: CONSTITUTIONAL: The patient is awake and alert. VITAL SIGNS: Afebrile. Pulse 75, breathing 16, blood pressure 144/63. GENERAL APPEARANCE AND MENTAL STATUS: Fair. HEAD/NECK: Normocephalic. Atraumatic. EYES: EOMI. No deformity. EARS: Clear. No ulcers. NOSE: Intact. No lesions. MOUTH: Clear. No discharge. THROAT: Clear. No exudate. LUNGS: Clear. No crackles. CARDIAC: S1, S2. No rub. ABDOMEN: Benign. Bowel sounds positive. GENITALIA/RECTUM: [place] absent. BACK/EXTREMITIES: Edema 0+. NEUROLOGICAL: Alert and motor intact. SKIN: LYMPHATICS: LABORATORY DATA: Labs reviewed. ASSESSMENT: 1. Acute kidney injury with chronic kidney disease, most likely due to cardiorenal syndrome. Continue diuresis. 2. Hypertension, stable. 3. Anemia, stable. 4. Medication based on GFR appropriate. 5. Hyperkalemia, agree with Kayexalate. We will recheck labs. 6. Metabolic acidosis. Agree with sodium bicarbonate. Job ID: [id number]
[2019-07-25 12:45] LABS: Anion Gap 17 mmol/L (10-20); BUN (Urea Nitrogen) 44 mg/dL (9.8-20.1); Calc. Creatinine Clearance 61 mL/min (70-130); Calcium 9.2 mg/dL (7.8-10.44); Carbon Dioxide 20 mmol/L (23-31); Chloride 107 mmol/L (98-107); Estimated GFR-MDRD 32; Glucose 390 mg/dL (83-110); Potassium 5.7 mmol/L (3.5-5.1); Sodium 138 mmol/L (136-145)
[2019-07-25] MEDS ORDERED: hydrALAZINE 20 MG/ML VIAL SLOW IVP SCH (13:15)
[2019-07-25] MEDS ORDERED: hydrALAZINE 20 MG/ML VIAL SLOW IVP PRN (17:11)
[2019-07-25] MEDS ORDERED: NIFEdipine XL 60 MG TAB PO SCH (17:15)
[2019-07-25] MEDS: Sodium Bicarbonate Tab 325 MG TAB PO SCH (20:35)
[2019-07-25] MEDS: Famotidine 20 MG TAB PO SCH (20:35)
[2019-07-25 21:08] LABS: Anion Gap 16 mmol/L (10-20); BUN (Urea Nitrogen) 45 mg/dL (9.8-20.1); Calc. Creatinine Clearance 58 mL/min (70-130); Calcium 8.5 mg/dL (7.8-10.44); Carbon Dioxide 21 mmol/L (23-31); Chloride 103 mmol/L (98-107); Estimated GFR-MDRD 30; Glucose 441 mg/dL (83-110); Potassium 6.1 mmol/L (3.5-5.1); Sodium 134 mmol/L (136-145)
--- NOTE | 2019-07-25 21:31 | CON ---
DATE OF CONSULTATION: HISTORY OF PRESENT ILLNESS: Michael Orozco is a 69-year-old black female whom I have seen intermittently over the last 23 years. In May 1996, treadmill was normal. In October 2008, she was evaluated for dyspnea on exertion and adenosine Cardiolite was normal. Echo ejection fraction was 50% to 55% with moderate mitral regurgitation. She was again seen in July 2017, with left upper chest pressure which would start with walking and could last up to 30 minutes. She underwent cardiac PET scan which was abnormal and this was followed by cardiac catheterization in September 2017. This revealed a 60% first diagonal and a 50% proximal right coronary artery stenosis. Ejection fraction was 50% to 55%. She has been admitted several times for diastolic heart failure. She has been somewhat noncompliant with followups with the last followup on June 04, 2018. She now is admitted with extreme weakness and inability to get up out of bed yesterday. Her initial blood glucose was 50. There was thought that she may have some mild angioedema and she was given steroids, Benadryl, and Lasix has been switched to Bumex. She denies any chest discomfort or shortness of breath to me. PAST MEDICAL HISTORY: Chronic kidney disease, diastolic heart failure, hypertension, hypercholesterolemia, diabetes, and obesity. MEDICATIONS: 1. Albuterol 2 puffs q.6 hours p.r.n. 2. Aspirin 81 daily. 3. Atorvastatin 80 at bedtime. 4. Furosemide 40 daily. 5. Hydralazine 100 mg b.i.d. 6. Lantus insulin. 7. Isosorbide dinitrate 30 mg q.a.m. 8. Magnesium oxide 400 mg daily. 9. Metoprolol ER 50 mg daily. 10. Pantoprazole 40 q.a.m. 11. She should be on Repatha 140 every 2 weeks. However, she states she only took this for 3 months and never got it refilled. ALLERGIES: SULFA, CARVEDILOL, AND PENICILLIN. SOCIAL HISTORY: She does not smoke or drink. PAST SURGICAL HISTORY: Right ankle surgery, hysterectomy, eye surgeries. REVIEW OF SYSTEMS: A 10-point review of systems is otherwise unremarkable. PHYSICAL EXAMINATION: VITAL SIGNS: Blood pressure 182/73, pulse of 66. HEENT: PERRL. NECK: Supple. CHEST: Clear. CARDIAC: S1 and S2 normal without any S3, S4, or murmur. ABDOMEN: Normal bowel sounds without tenderness, obese. EXTREMITIES: Reveal 1+ pretibial edema. NEUROLOGIC: Grossly intact. LABORATORY DATA: EKG revealed atrial fibrillation with fast ventricular response. She has since converted to sinus rhythm. Echocardiogram revealed ejection fraction of 60% to 65% with moderately enlarged left atrium, mild mitral regurgitation, and mild tricuspid regurgitation. Hemoglobin 11.3, hematocrit 34.8, white count 8800, platelets 238,000. Sodium 138, potassium 5.7, chloride 107, carbon dioxide 20, BUN 44, creatinine 1.87. Troponin I is unremarkable. BNP 558.6, LDL cholesterol 73. IMPRESSION: 1. Episode of extreme weakness at home, possibly due to hypoglycemia. There was also thought that she may have had angioedema. 2. History of diastolic heart failure with some mild edema at this time. 3. Hyperlipidemia. 4. Diabetes. 5. Hypertension, poorly controlled. 6. Chronic kidney disease. PLAN: The patient's metoprolol has not been resumed and this will be restarted. She did have a transient episode of atrial fibrillation in the emergency room and may need to be on even higher dose of beta ebenezer. Job ID: [id number] [facility]
--- NOTE | 2019-07-26 00:23 | PRG ---
DATE OF SERVICE: 07/26/2019 SUBJECTIVE: A 69-year-old female being seen for acute kidney injury. The patient denies any nausea, vomiting, or chest pain. OBJECTIVE: CONSTITUTIONAL: The patient is awake and alert. VITAL SIGNS: Pulse 70, breathing 16, blood pressure 182/73. GENERAL APPEARANCE AND MENTAL STATUS: Fair. HEAD/NECK: Normocephalic. Atraumatic. EYES: EOMI. No deformity. EARS: Clear. No ulcers. NOSE: Intact. No lesions. MOUTH: Clear. No discharge. THROAT: Clear. No exudate. LUNGS: Clear. No crackles. CARDIAC: S1, S2. No rub. ABDOMEN: Benign. Bowel sounds positive. GENITALIA/RECTUM: [place] absent. BACK/EXTREMITIES: Edema 0+. NEUROLOGICAL: Alert and motor intact. SKIN: LYMPHATICS: LABORATORY DATA: Reviewed. ASSESSMENT AND PLAN: 1. Chronic kidney disease stage 3, stable. 2. Hypertension, titrate patient's medication. 3. Hyperkalemia, please check stat potassium. Job ID: [id number] [facility]
[2019-07-26 04:56] LABS: Hemoglobin A1c 7.4 % (4.0-6.0)
[2019-07-26 05:08] LABS: Albumin 3.4 g/dL (3.4-4.8); Anion Gap 12 mmol/L (10-20); BUN (Urea Nitrogen) 48 mg/dL (9.8-20.1); BUN/Creatinine Ratio 25.95; Calc. Creatinine Clearance 62 mL/min (70-130); Calcium 8.7 mg/dL (7.8-10.44); Carbon Dioxide 27 mmol/L (23-31); Chloride 104 mmol/L (98-107); Estimated GFR-MDRD 33; Glucose 229 mg/dL (83-110); Phosphorus 4.1 mg/dL (2.3-4.7); Potassium 4.4 mmol/L (3.5-5.1); Sodium 139 mmol/L (136-145)
[2019-07-26] MEDS: NIFEdipine XL 60 MG TAB PO SCH ×2 (09:48→20:55)
[2019-07-26] MEDS: Sodium Bicarbonate Tab 325 MG TAB PO SCH ×2 (09:49→20:55)
[2019-07-26] MEDS: Insulin Glargine 40 UNITS in Pre-Filled Syringe 1 EACH SC SCH ×2 (10:21→20:55)
[2019-07-26] MEDS: HumaLOG 300 UNITS/3 ML VIAL SC PRN (11:49)
--- NOTE | 2019-07-26 13:35 | PDOC.HOSPP ---
- Subjective Encounter Date: 07/26/19 Encounter Time: 09:43 Subjective: 69 y/o female with HTN, CKD 3, morbid obesity, JOSEPHINE, chronic diastolic heart failure admitted with acute onset of facial and tong swelling associated with dysarthria and generalized weakness. Treated with epinephrine, steroid and benadryl for presumed angioedema with improvement. Also noted to have paroxysmal atrial fibrillation. Feeling better. Ambulating with PT. - Objective Vital Signs & Weight: Vital Signs (12 hours) Temp Pulse Pulse Resp BP BP BP 07/26/19 11:52 98.2 F 61 18 07/26/19 10:47 62 150/67 H 199/81 H 07/26/19 09:48 62 148/80 H 07/26/19 08:20 07/26/19 08:00 97.9 F 62 18 07/26/19 03:33 98.4 F 67 20 BP Pulse Ox 07/26/19 11:52 178/76 H 96 07/26/19 10:47 07/26/19 09:48 07/26/19 08:20 94 L 07/26/19 08:00 148/80 H 98 07/26/19 03:33 156/70 H 94 L Weight Weight 311 lb 9.6 oz I&O: 07/25/19 07/26/19 07/27/19 06:59 06:59 06:59 Intake Total 1210 Output Total 1000 Balance -1000 1210 Result Diagrams: 07/25/19 06:03 07/26/19 04:20 Additional Labs: Accuchecks 07/26/19 07/26/19 07/25/19 10:46 05:55 20:58 POC Glucose 247 H 230 H 448 H 07/25/19 16:46 POC Glucose 407 H Hospitalist ROS - Medication Medications: Active Medications Generic Name Dose Route Start Last Admin Trade Name Freq PRN Reason Stop Dose Admin Famotidine 20 mg 07/24/19 21:00 07/25/19 20:35 Pepcid PO 20 mg 2100 ANASTASIA Administration Hydralazine HCl 10 mg 07/25/19 17:11 07/25/19 20:36 Apresoline SLOW IVP 10 mg Q2H PRN Administration Hypertension Insulin Glargine 40 units/ 0.4 mls @ 0 mls/hr 07/26/19 09:00 07/26/19 10:21 Miscellaneous Medication SC 0.4 mls BID ANASTASIA Administration Insulin Human Lispro 0 units 07/25/19 17:14 07/26/19 11:49 Humalog SC 6 unit .AGGRESSIVE SLIDING PRN Administration Aggressive Correctional Scale Metoprolol Succinate 50 mg 07/26/19 09:00 07/26/19 09:49 Toprol Xl PO 50 mg DAILY ANASTASIA Administration Nifedipine 60 mg 07/26/19 09:00 07/26/19 09:48 Procardia Xl PO 60 mg BID ANASTASIA Administration Sodium Bicarbonate 650 mg 07/25/19 21:00 07/26/19 09:49 Bicarbonate, Sodium PO 650 mg BID ANASTASIA Administration - Exam General Appearance: awake alert General - other findings: morbidly obese Eye: anicteric sclera ENT: normocephalic atraumatic, moist mucosa Neck: symmetric Heart: RRR Respiratory: no wheezes, no rales, no ronchi, normal chest expansion Respiratory - other findings: decreased air entry both bases. Gastrointestinal: soft, non-tender, non-distended, normal bowel sounds Gastrointestinal - other findings: morbidly obese with pannus Extremities: no edema Neurological: cranial nerve grossly intact, no focal deficits Psychiatric: A&O x 3 Hosp A/P (1) CHAYA (acute kidney injury) Code(s): N17.9 - ACUTE KIDNEY FAILURE, UNSPECIFIED Status: Acute (2) Hyperkalemia Code(s): E87.5 - HYPERKALEMIA Status: Acute (3) Paroxysmal atrial fibrillation Code(s): I48.0 - PAROXYSMAL ATRIAL FIBRILLATION Status: Acute (4) Angioedema Code(s): T78.3XXA - ANGIONEUROTIC EDEMA, INITIAL ENCOUNTER Status: Acute (5) Uncontrolled type 2 diabetes mellitus Code(s): E11.65 - TYPE 2 DIABETES MELLITUS WITH HYPERGLYCEMIA Status: Acute (6) CKD (chronic kidney disease), stage III Code(s): N18.3 - CHRONIC KIDNEY DISEASE, STAGE 3 (MODERATE) Status: Chronic (7) Chronic diastolic (congestive) heart failure Code(s): I50.32 - CHRONIC DIASTOLIC (CONGESTIVE) HEART FAILURE Status: Chronic (8) Diabetes type 2, controlled Code(s): E11.9 - TYPE 2 DIABETES MELLITUS WITHOUT COMPLICATIONS Status: Chronic (9) HTN (hypertension) Code(s): I10 - ESSENTIAL (PRIMARY) HYPERTENSION Status: Chronic (10) Morbid obesity with BMI of 50.0-59.9, adult Code(s): E66.01 - MORBID (SEVERE) OBESITY DUE TO EXCESS CALORIES; Z68.43 - BODY MASS INDEX (BMI) 50.0-59.9, ADULT Status: Chronic (11) Abnormal LFTs Code(s): R94.5 - ABNORMAL RESULTS OF LIVER FUNCTION STUDIES Status: Acute - Plan Increase lantus to get adequate glycemic control. Increase nifedipine to 60 bid. Continue alkali therapy. DC lasix duer to worsening azotemia/creat. D/w cardiology about chronic anticoagulation given paroxuysmal atrial fibrillation.
[2019-07-26] MEDS: Famotidine 20 MG TAB PO SCH (20:54)
[2019-07-27 05:31] LABS: ALT (SGPT) 45 U/L (8-55); AST (SGOT) 21 U/L (5-34); Albumin 3.2 g/dL (3.4-4.8); Alkaline Phosphatase 107 U/L (40-110); Anion Gap 9 mmol/L (10-20); BUN (Urea Nitrogen) 44 mg/dL (9.8-20.1); Bilirubin, Total 0.4 mg/dL (0.2-1.2); Calc. Creatinine Clearance 76 mL/min (70-130); Calcium 8.5 mg/dL (7.8-10.44); Carbon Dioxide 31 mmol/L (23-31); Chloride 106 mmol/L (98-107); Estimated GFR-MDRD 41; Globulin 2.8 g/dL (2.4-3.5); Potassium 4.1 mmol/L (3.5-5.1); Sodium 142 mmol/L (136-145)
[2019-07-27 05:44] LABS: Glucose 52 mg/dL (83-110)
[2019-07-27] MEDS ORDERED: Dextrose 5% in Water 1,000 ML IV PRN (06:03)
[2019-07-27] MEDS ORDERED: Dextrose 50% Abboject 50 ML SYRINGE IVP PRN (06:03)
[2019-07-27] MEDS: NIFEdipine XL 60 MG TAB PO SCH ×2 (09:31→20:10)
[2019-07-27] MEDS: Rivaroxaban 15 MG TAB PO SCH (09:31)
[2019-07-27] MEDS: Sodium Bicarbonate Tab 325 MG TAB PO SCH ×2 (09:31→20:10)
--- NOTE | 2019-07-27 09:45 | PDOC.HOSPP ---
- Subjective Encounter Date: 07/27/19 Encounter Time: 11:55 Subjective: Patient without complaint. No further swelling. Blood sugar low last night after 40 units insulin in the AM. Normal now. - Objective Vital Signs & Weight: Vital Signs (12 hours) Temp Pulse Resp BP Pulse Ox 07/27/19 07:47 97.8 F 59 L 13 145/65 H 95 07/27/19 04:00 97.7 F 60 18 143/63 H 98 07/27/19 00:00 62 148/67 H Weight Weight 309 lb 6.4 oz I&O: 07/26/19 07/27/19 07/28/19 06:59 06:59 06:59 Intake Total 1210 1670 Balance 1210 1670 Result Diagrams: 07/25/19 06:03 07/27/19 04:38 Additional Labs: Accuchecks 07/27/19 07/27/19 07/26/19 08:02 06:11 23:50 POC Glucose 86 61 L 69 L 07/26/19 07/26/19 07/26/19 20:30 16:50 10:46 POC Glucose 92 113 H 247 H Hospitalist ROS - Review of Systems Constitutional: denies: fever, chills Respiratory: denies: cough, shortness of breath Cardiovascular: denies: chest pain, palpitations Gastrointestinal: denies: nausea, vomiting, abdominal pain Neurological: denies: weakness, numbness, confusion - Medication Medications: Active Medications Generic Name Dose Route Start Last Admin Trade Name Freq PRN Reason Stop Dose Admin Famotidine 20 mg 07/24/19 21:00 07/26/19 20:54 Pepcid PO 20 mg 2100 ANASTASIA Administration Hydralazine HCl 10 mg 07/25/19 17:11 07/25/19 20:36 Apresoline SLOW IVP 10 mg Q2H PRN Administration Hypertension Insulin Human Lispro 0 units 07/25/19 17:14 07/26/19 11:49 Humalog SC 6 unit .AGGRESSIVE SLIDING PRN Administration Aggressive Correctional Scale Metoprolol Succinate 50 mg 07/26/19 09:00 07/27/19 09:31 Toprol Xl PO 50 mg DAILY ANASTASIA Administration Nifedipine 60 mg 07/26/19 09:00 07/27/19 09:31 Procardia Xl PO 60 mg BID ANASTASIA Administration Rivaroxaban 15 mg 07/27/19 09:00 12/23/19 09:31 Xarelto PO 15 mg DAILY ANASTASIA Administration Sodium Bicarbonate 650 mg 07/25/19 21:00 07/27/19 09:31 Bicarbonate, Sodium PO 650 mg BID ANASTASIA Administration - Exam General Appearance: NAD Eye: anicteric sclera ENT: moist mucosa Heart: RRR, no murmur, no gallops, no rubs Respiratory: CTAB, no wheezes, no rales, no ronchi Gastrointestinal: soft, non-tender, non-distended, normal bowel sounds, no palpable masses Skin: normal turgor, no lesions, no rashes Psychiatric: normal affect, normal behavior, A&O x 3 Hosp A/P (1) Angioedema Code(s): T78.3XXA - ANGIONEUROTIC EDEMA, INITIAL ENCOUNTER Status: Resolved (2) CHAYA (acute kidney injury) Code(s): N17.9 - ACUTE KIDNEY FAILURE, UNSPECIFIED Status: Acute (3) Hyperkalemia Code(s): E87.5 - HYPERKALEMIA Status: Resolved (4) Paroxysmal atrial fibrillation Code(s): I48.0 - PAROXYSMAL ATRIAL FIBRILLATION Status: Acute (5) Hypoglycemia associated with type 2 diabetes mellitus Code(s): E11.649 - TYPE 2 DIABETES MELLITUS WITH HYPOGLYCEMIA WITHOUT COMA Status: Acute (6) Chronic diastolic (congestive) heart failure Code(s): I50.32 - CHRONIC DIASTOLIC (CONGESTIVE) HEART FAILURE Status: Chronic (7) Hypertension Code(s): I10 - ESSENTIAL (PRIMARY) HYPERTENSION Status: Chronic Qualifiers: Hypertension type: essential hypertension Qualified Code(s): I10 - Essential (primary) hypertension - Plan Hyperkalemia resolved, recheck in AM Patient only on 45 units of Lantus total at home, got hypoglycemic with reinstitution of 40 units yest morning. Will decrease to 25 units once daily and watch till tomorrow No further runs of Afib, continue betablocker If no further issues can discharge to rehab
[2019-07-27] MEDS ORDERED: Insulin Glargine 25 UNITS in Pre-Filled Syringe 1 EACH SC SCH (10:00)
[2019-07-27] MEDS: Insulin Glargine 40 UNITS in Pre-Filled Syringe 1 EACH SC SCH (10:43)
--- NOTE | 2019-07-27 12:06 | PRG ---
DATE OF SERVICE: 07/27/2019 SUBJECTIVE: Patient was seen and examined at bedside and overnight events noted. Patient denies any shortness of breath or chest pain or palpitation. No history of nausea or vomiting or diarrhea or fever or chills or cramps. OBJECTIVE: GENERAL: This is an obese female, in no apparent distress. VITAL SIGNS: Temperature 97.7. Heart rate 60. Respiratory rate . Blood pressure 143/63. HEENT: Atraumatic, normocephalic. Oral mucosa is moist NECK: Supple. CARDIOVASCULAR: S1, S2 heard. Rate and rhythm regular. RESPIRATORY: Clear to auscultation. GASTROINTESTINAL: Abdomen is soft. MUSCULOSKELETAL: No tenderness. No edema. DERMATOLOGIC: No skin rash. NEUROLOGIC: Alert and awake and oriented X3. No focal neurologic deficits. Moving all the extremities. PSYCHIATRIC: Mood and affect normal. LABORATORY DATA: Potassium 4.1, BUN is 44, creatinine is 1.5. ASSESSMENT AND PLAN: 1. Acute kidney injury on chronic kidney disease, stage 3, stable. 2. History of hypertension. 3. Hyperkalemia, better. 4. Edema, . 5. Morbid obesity. Labs are better. We will follow. Job ID: [id number]
[2019-07-27] MEDS: Acetaminophen 325 MG TAB PO PRN ×2 (15:38→20:10)
[2019-07-27] MEDS: Famotidine 20 MG TAB PO SCH (20:10)
[2019-07-28 04:57] LABS: #Eosinphils 0.3 thou/uL (0.0-0.7); #Lymphocytes 2.7 thou/uL (1.20-3.40); #Neutrophils 3.2 thou/uL (1.40-6.50); %Basophils 0.4 % (0.0-1.0); %Eosinophils 3.6 % (0.0-10.0); %Lymphocytes 37.2 % (21.0-51.0); %Monocytes 13.9 % (0.0-10.0); %Neutrophils 44.9 % (42.0-75.0); Hemoglobin 10.8 g/dL (12.0-16.0); Mean Corpuscular HGB CONC 32.5 g/dL (32.0-36.0); Mean Corpuscular Hemoglobin 30.9 pg (27.0-31.0); Mean Platelet Volume 8.2 fL (7.4-10.4); Platelet Count 212 thou/uL (130-400); RBC Distribution Width 15.4 % (11.5-14.5); Red Blood Cell (RBC) Count 3.49 mill/uL (4.20-5.40); White Blood Cell (WBC) Count 7.1 thou/uL (4.8-10.8)
[2019-07-28 05:20] LABS: Anion Gap 9 mmol/L (10-20); BUN (Urea Nitrogen) 42 mg/dL (9.8-20.1); Calc. Creatinine Clearance 84 mL/min (70-130); Calcium 8.1 mg/dL (7.8-10.44); Carbon Dioxide 32 mmol/L (23-31); Chloride 103 mmol/L (98-107); Estimated GFR-MDRD 46; Glucose 120 mg/dL (83-110); Potassium 4.4 mmol/L (3.5-5.1); Sodium 140 mmol/L (136-145)
[2019-07-28] MEDS: Sodium Bicarbonate Tab 325 MG TAB PO SCH (09:19)
[2019-07-28] MEDS: Insulin Glargine 25 UNITS in Pre-Filled Syringe 1 EACH SC SCH (09:19)
[2019-07-28] MEDS: NIFEdipine XL 60 MG TAB PO SCH ×2 (09:20→20:30)
[2019-07-28] MEDS: Rivaroxaban 15 MG TAB PO SCH (09:20)
--- NOTE | 2019-07-28 09:49 | PDOC.HOSPP ---
- Subjective Encounter Date: 07/28/19 Encounter Time: 11:40 Subjective: Patient feeling fine. Still quite weak getting up with physical therapy[place] - Objective Vital Signs & Weight: Vital Signs (12 hours) Temp Pulse Resp BP Pulse Ox 07/28/19 09:20 57 L 07/28/19 07:27 96 07/28/19 07:24 98.3 F 57 L 20 161/71 H 96 07/28/19 05:22 138/64 07/28/19 04:00 98.3 F 58 L 20 189/79 H 96 Weight Weight 313 lb 12.8 oz I&O: 07/27/19 07/28/19 07/29/19 06:59 06:59 06:59 Intake Total 1670 1280 Balance 1670 1280 Result Diagrams: 07/28/19 04:18 07/28/19 04:18 Additional Labs: Accuchecks 07/28/19 07/27/19 07/27/19 06:03 20:51 16:58 POC Glucose 117 H 221 H 171 H 07/27/19 11:03 POC Glucose 126 H Hospitalist ROS - Review of Systems Constitutional: denies: fever, chills Respiratory: denies: cough, shortness of breath Cardiovascular: denies: chest pain Gastrointestinal: denies: nausea, vomiting, abdominal pain - Medication Medications: Active Medications Generic Name Dose Route Start Last Admin Trade Name Freq PRN Reason Stop Dose Admin Acetaminophen 650 mg 07/24/19 20:05 07/27/19 20:10 Tylenol PO 650 mg Q4H PRN Administration Headache/Fever/Mild Pain (1-3) Famotidine 20 mg 07/24/19 21:00 07/27/19 20:10 Pepcid PO 20 mg 2100 ANASTASIA Administration Hydralazine HCl 10 mg 07/25/19 17:11 07/25/19 20:36 Apresoline SLOW IVP 10 mg Q2H PRN Administration Hypertension Insulin Glargine 25 units/ 0.25 mls @ 0 mls/hr 07/28/19 09:00 07/28/19 09:19 Miscellaneous Medication SC 0.25 mls QAM ANASTASIA Administration Insulin Human Lispro 0 units 07/25/19 17:14 07/26/19 11:49 Humalog SC 6 unit .AGGRESSIVE SLIDING PRN Administration Aggressive Correctional Scale Metoprolol Succinate 50 mg 07/26/19 09:00 07/28/19 09:20 Toprol Xl PO 50 mg DAILY ANASTASIA Administration Nifedipine 60 mg 07/26/19 09:00 07/28/19 09:20 Procardia Xl PO 60 mg BID ANASTASIA Administration Rivaroxaban 15 mg 07/27/19 09:00 07/28/19 09:20 Xarelto PO 15 mg DAILY ANASTASIA Administration Sodium Bicarbonate 650 mg 07/25/19 21:00 07/28/19 09:19 Bicarbonate, Sodium PO 650 mg BID ANASTASIA Administration - Exam General Appearance: NAD ENT: moist mucosa Heart: RRR, no murmur Respiratory: CTAB, no wheezes, no rales, no ronchi Gastrointestinal: soft, non-tender, non-distended, normal bowel sounds, no palpable masses Psychiatric: normal affect, normal behavior, A&O x 3 Hosp A/P (1) Angioedema Code(s): T78.3XXA - ANGIONEUROTIC EDEMA, INITIAL ENCOUNTER Status: Resolved (2) CHAYA (acute kidney injury) Code(s): N17.9 - ACUTE KIDNEY FAILURE, UNSPECIFIED Status: Acute Plan: improved (3) Hyperkalemia Code(s): E87.5 - HYPERKALEMIA Status: Resolved (4) Paroxysmal atrial fibrillation Code(s): I48.0 - PAROXYSMAL ATRIAL FIBRILLATION Status: Acute (5) Hypoglycemia associated with type 2 diabetes mellitus Code(s): E11.649 - TYPE 2 DIABETES MELLITUS WITH HYPOGLYCEMIA WITHOUT COMA Status: Resolved (6) Chronic diastolic (congestive) heart failure Code(s): I50.32 - CHRONIC DIASTOLIC (CONGESTIVE) HEART FAILURE Status: Chronic (7) Hypertension Code(s): I10 - ESSENTIAL (PRIMARY) HYPERTENSION Status: Chronic Qualifiers: Hypertension type: essential hypertension Qualified Code(s): I10 - Essential (primary) hypertension - 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
--- NOTE | 2019-07-28 10:48 | PRG ---
DATE OF SERVICE: 07/28/2019 SUBJECTIVE: Patient was seen and examined at bedside and overnight events noted. Patient denies any shortness of breath or chest pain or palpitation. No history of nausea or vomiting or diarrhea or fever or chills or cramps. OBJECTIVE: GENERAL: This is an obese female, in no apparent distress. VITAL SIGNS: Temperature 98.3. Heart rate 57. Respiratory rate 18. Blood pressure 161/71. HEENT: Atraumatic, normocephalic. Oral mucosa is moist NECK: Supple. CARDIOVASCULAR: S1, S2 heard. Rate and rhythm regular. RESPIRATORY: Clear to auscultation. GASTROINTESTINAL: Abdomen is soft. MUSCULOSKELETAL: No tenderness. No edema. DERMATOLOGIC: No skin rash. NEUROLOGIC: Alert and awake and oriented X3. No focal neurologic deficits. Moving all the extremities. PSYCHIATRIC: Mood and affect normal. LABORATORY DATA: Potassium 4.4, BUN is 42, and creatinine is 1.3. ASSESSMENT AND PLAN: 1. Acute kidney injury on chronic kidney disease, stage 3, stable. 2. History of hypertension. We will adjust the medicines. 3. Edema, controlled. 4. Morbid obesity. 5. Hyperkalemia, better. Labs are stable from Nephrology standpoint. Job ID: [id number]
[2019-07-28] MEDS ORDERED: hydrALAZINE 25 MG TAB PO SCH (13:00)
--- NOTE | 2019-07-28 13:53 | EKG ---
Test Reason : Blood Pressure : / mmHG Vent. Rate : 111 BPM Atrial Rate : 111 BPM P-R Int : 184 ms QRS Dur : 076 ms QT Int : 338 ms P-R-T Axes : 089 046 106 degrees QTc Int : 459 ms Sinus tachycardia with Fusion complexes Low voltage QRS Nonspecific ST and T wave abnormality Abnormal ECG Confirmed by MOJGAN BRADLEY MD ([id number]), scientific editor EBENEZER ANTONY ([id number]) on 07/28/2019 1:53:32 PM Referred By: Confirmed By:MOJGAN BRADLEY MD
[2019-07-28] MEDS: HumaLOG 300 UNITS/3 ML VIAL SC PRN ×2 (17:49→21:11)
[2019-07-28] MEDS: Acetaminophen 325 MG TAB PO PRN (20:29)
[2019-07-28] MEDS: hydrALAZINE 25 MG TAB PO SCH (20:29)
[2019-07-28] MEDS: diphenhydrAMINE 25 MG CAP PO PRN (20:30)
[2019-07-28] MEDS: Famotidine 20 MG TAB PO SCH (20:30)
[2019-07-29] MEDS: Sodium Bicarbonate Tab 325 MG TAB PO SCH ×2 (00:35→09:24)
[2019-07-29] MEDS: hydrALAZINE 25 MG TAB PO SCH ×2 (09:24→19:51)
[2019-07-29] MEDS: Rivaroxaban 15 MG TAB PO SCH (09:25)
[2019-07-29] MEDS: NIFEdipine XL 60 MG TAB PO SCH ×2 (09:35→19:51)
[2019-07-29] MEDS: Insulin Glargine 25 UNITS in Pre-Filled Syringe 1 EACH SC SCH (09:36)
[2019-07-29] MEDS: HumaLOG 300 UNITS/3 ML VIAL SC PRN ×2 (11:23→17:14)
--- NOTE | 2019-07-29 12:36 | PDOC.HOSPP ---
- Subjective Encounter Date: 07/29/19 Encounter Time: 12:15 Subjective: cc: f/u for angioedema, PAF, diastolic CHF exacerbation subjective: patient is new to me. seen and personally examined at bedside. chart , labs, imaging results reviewed. feels better but still weak and lives at home alone. notes lower extremity edema. uses home oxygen 2L . nephrology at bedside. - Objective Vital Signs & Weight: Vital Signs (12 hours) Temp Pulse Resp BP BP Pulse Ox 07/29/19 07:18 97.8 F 61 15 169/73 H 94 L 07/29/19 03:48 97.7 F 59 L 14 152/68 H 92 L Weight Weight 318 lb 3.2 oz I&O: 07/28/19 07/29/19 07/30/19 06:59 06:59 06:59 Intake Total 1280 1680 Output Total 1280 Balance 1280 400 Result Diagrams: 07/28/19 04:18 07/28/19 04:18 Additional Labs: Accuchecks 07/29/19 07/29/19 07/28/19 11:15 05:31 20:42 POC Glucose 167 H 133 H 190 H 07/28/19 16:49 POC Glucose 174 H Hospitalist ROS - Review of Systems Other: pertinent positive per SUBJECTIVE; remainder ROS negative - Medication Medications: Active Medications Generic Name Dose Route Start Last Admin Trade Name Freq PRN Reason Stop Dose Admin Acetaminophen 650 mg 07/24/19 20:05 07/28/19 20:29 Tylenol PO 650 mg Q4H PRN Administration Headache/Fever/Mild Pain (1-3) Diphenhydramine HCl 25 mg 07/24/19 20:13 07/28/19 20:30 Benadryl PO 25 mg Q6H PRN Administration Itching & Insomnia Famotidine 20 mg 07/24/19 21:00 07/28/19 20:30 Pepcid PO 20 mg 2100 ANASTASIA Administration Hydralazine HCl 10 mg 07/25/19 17:11 07/25/19 20:36 Apresoline SLOW IVP 10 mg Q2H PRN Administration Hypertension Hydralazine HCl 100 mg 07/28/19 21:00 07/29/19 09:24 Apresoline PO 100 mg BID ANASTASIA Administration Insulin Glargine 25 units/ 0.25 mls @ 0 mls/hr 07/28/19 09:00 07/29/19 09:36 Miscellaneous Medication SC 0.25 mls QAM ANASTASIA Administration Insulin Human Lispro 0 units 07/25/19 17:14 07/29/19 11:23 Humalog SC 3 unit .AGGRESSIVE SLIDING PRN Administration Aggressive Correctional Scale Metoprolol Succinate 50 mg 07/26/19 09:00 07/29/19 09:35 Toprol Xl PO 50 mg DAILY ANASTASIA Administration Nifedipine 60 mg 07/26/19 09:00 07/29/19 09:35 Procardia Xl PO 60 mg BID ANASTASIA Administration Rivaroxaban 15 mg 07/27/19 09:00 07/29/19 09:25 Xarelto PO 15 mg DAILY ANASTASIA Administration Sodium Bicarbonate 650 mg 07/25/19 21:00 07/29/19 09:24 Bicarbonate, Sodium PO 650 mg BID ANASTASIA Administration - Exam General Appearance: awake alert Eye: PERRL, anicteric sclera ENT: normocephalic atraumatic, no oropharyngeal lesions Neck: supple Heart: RRR, no murmur Respiratory: CTAB, no wheezes, no rales Gastrointestinal: soft, non-distended, normal bowel sounds Gastrointestinal - other findings: some abdominal wall edema Extremities: no cyanosis, 2+ LE edema Skin: normal turgor, no lesions, no rashes Neurological: cranial nerve grossly intact, normal sensation to touch, no weakness Musculoskeletal: normal tone, normal strength, no muscle wasting Psychiatric: A&O x 3 Hosp A/P - Plan Acute angioedema, resolved. Acute on chronic diastolic CHF exacerbation. patient received IV Lasix and IV Bumex earlier during hospital course and has improvement but persistence of lower extremity edema. discussed with nephrology who will diurese with IV lasix today and change to oral lasix tomorrow. monitor renal function. TE with preserved LVEF CHAYA on CKD with hyperkalemia, resolved. discontinue nahc03 tablets. PAF. currently NSR. on home aspirin but started on DOAC for secondary stroke prevention. Generalized weakness and deconditioning. continue PT and OT. unclear disposition. Morbid obesity BMI 5 Chronic hypoxic respiratory failure on home oxygen T2DM. continue Lantus. monitor accuchecks Hypertension, benign. DVT px: Xarelto Dispo: discharge planning home with HHC vs SNF
--- NOTE | 2019-07-29 13:19 | PRG ---
DATE OF SERVICE: 07/29/2019 SUBJECTIVE: Patient was seen and examined at bedside and overnight events noted. Patient denies any shortness of breath or chest pain or palpitation. No history of nausea or vomiting or diarrhea or fever or chills or cramps. OBJECTIVE: GENERAL: This is an obese female, in no apparent distress. VITAL SIGNS: Temperature 97.9, pulse 57, respiratory rate 16, blood pressure 134/61. HEENT: Atraumatic, normocephalic. Oral mucosa is moist NECK: Supple. CARDIOVASCULAR: S1, S2 heard. Rate and rhythm regular. RESPIRATORY: Clear to auscultation. GASTROINTESTINAL: Abdomen is soft. MUSCULOSKELETAL: No tenderness. No edema. DERMATOLOGIC: No skin rash. NEUROLOGIC: Alert and awake and oriented X3. No focal neurologic deficits. Moving all the extremities. PSYCHIATRIC: Mood and affect normal. LABORATORY DATA: Not done today. ASSESSMENT AND PLAN: 1. Acute kidney injury, stable. 2. Chronic kidney disease . 3. Edema. Okay with Lasix as tolerated. 4. Hypertension. 5. Diabetes. 6. Hyperkalemia. We will follow. Monitor renal function. Job ID: [id number]
[2019-07-29] MEDS ORDERED: Furosemide 40 MG/4 ML VIAL SLOW IVP SCH (17:15)
[2019-07-29] MEDS: Famotidine 20 MG TAB PO SCH (19:51)
[2019-07-30 05:19] LABS: Anion Gap 10 mmol/L (10-20); BUN (Urea Nitrogen) 38 mg/dL (9.8-20.1); Calc. Creatinine Clearance 89 mL/min (70-130); Calcium 8.2 mg/dL (7.8-10.44); Carbon Dioxide 32 mmol/L (23-31); Chloride 104 mmol/L (98-107); Estimated GFR-MDRD 48; Glucose 77 mg/dL (83-110); Potassium 4.5 mmol/L (3.5-5.1); Sodium 141 mmol/L (136-145)
[2019-07-30] MEDS ORDERED: Furosemide 20 MG TAB PO SCH (09:00)
[2019-07-30] MEDS: Rivaroxaban 15 MG TAB PO SCH (09:31)
[2019-07-30] MEDS: NIFEdipine XL 60 MG TAB PO SCH ×2 (09:31→21:31)
[2019-07-30] MEDS: hydrALAZINE 25 MG TAB PO SCH ×2 (09:31→21:31)
[2019-07-30] MEDS: Insulin Glargine 25 UNITS in Pre-Filled Syringe 1 EACH SC SCH (09:32)
[2019-07-30] MEDS: Acetaminophen 325 MG TAB PO PRN ×2 (09:36→15:51)
--- NOTE | 2019-07-30 11:11 | PDOC.HOSPP ---
- Subjective Encounter Date: 07/30/19 Encounter Time: 11:11 Subjective: cc: f/u for angioedema, acute on chronic diastolic CHF, chaya on ckd with hyperkalemia subjective: patient seen this morning. feels okay and back to her baseline. offers no acute complaints. notes some lower extremity edema. reports taking lasix one to two times per day depending on amount of swelling and reports taking it twice daily for 3 days prior to hospitalization. - Objective Vital Signs & Weight: Vital Signs (12 hours) Temp Pulse Resp BP BP Pulse Ox Pulse Ox 07/30/19 09:33 89 L 07/30/19 07:25 97.6 F 56 L 13 168/71 H 98 07/30/19 03:46 98.2 F 57 L 20 121/59 L 98 Pulse Ox Pulse Ox 07/30/19 09:33 94 L 92 L 07/30/19 07:25 07/30/19 03:46 Weight Weight 317 lb 4.8 oz I&O: 07/29/19 07/30/19 07/31/19 06:59 06:59 06:59 Intake Total 1680 1380 Output Total 1280 Balance 400 1380 Result Diagrams: 07/28/19 04:18 07/30/19 04:43 Additional Labs: Accuchecks 07/30/19 07/30/19 07/29/19 10:50 06:09 20:21 POC Glucose 164 H 78 160 H 07/29/19 07/29/19 17:14 11:15 POC Glucose 151 H 167 H Hospitalist ROS - Review of Systems Other: ROS: pertinent positive per SUBJECTIVE. remainder ROS negative - Medication Medications: Active Medications Generic Name Dose Route Start Last Admin Trade Name Freq PRN Reason Stop Dose Admin Acetaminophen 650 mg 07/24/19 20:05 07/30/19 09:36 Tylenol PO 650 mg Q4H PRN Administration Headache/Fever/Mild Pain (1-3) Diphenhydramine HCl 25 mg 07/24/19 20:13 07/28/19 20:30 Benadryl PO 25 mg Q6H PRN Administration Itching & Insomnia Famotidine 20 mg 07/24/19 21:00 07/29/19 19:51 Pepcid PO 20 mg 2100 ANASTASIA Administration Furosemide 20 mg 07/30/19 09:00 12/26/19 09:31 Lasix PO 20 mg DAILY ANASTASIA Administration Hydralazine HCl 10 mg 07/25/19 17:11 07/25/19 20:36 Apresoline SLOW IVP 10 mg Q2H PRN Administration Hypertension Hydralazine HCl 100 mg 07/28/19 21:00 07/30/19 09:31 Apresoline PO 100 mg BID ANASTASIA Administration Insulin Glargine 25 units/ 0.25 mls @ 0 mls/hr 07/28/19 09:00 07/30/19 09:32 Miscellaneous Medication SC 0.25 mls QAM ANASTASIA Administration Insulin Human Lispro 0 units 07/25/19 17:14 07/29/19 17:14 Humalog SC 3 unit .AGGRESSIVE SLIDING PRN Administration Aggressive Correctional Scale Metoprolol Succinate 50 mg 07/26/19 09:00 07/30/19 09:31 Toprol Xl PO 50 mg DAILY ANASTASIA Administration Nifedipine 60 mg 07/26/19 09:00 07/30/19 09:31 Procardia Xl PO 60 mg BID ANASTASIA Administration Rivaroxaban 15 mg 07/27/19 09:00 07/30/19 09:31 Xarelto PO 15 mg DAILY ANASTASIA Administration - Exam General Appearance: awake alert General - other findings: obese Eye: PERRL, anicteric sclera ENT: normocephalic atraumatic, no oropharyngeal lesions Neck: symmetric, no JVD Heart: RRR, no murmur Respiratory: CTAB, no wheezes, no rales, no ronchi, normal chest expansion Gastrointestinal: soft, non-tender, non-distended, normal bowel sounds Extremities: 1+ LE edema Skin: normal turgor, no lesions Neurological: cranial nerve grossly intact, normal sensation to touch Musculoskeletal: normal tone, normal strength Psychiatric: normal affect, normal behavior, A&O x 3, oriented to person Hosp A/P - Plan Acute angioedema, resolved. Acute on chronic diastolic CHF exacerbation. resolving. nephrology following and transitioned to oral Lasix. s/p IV lasix and IV bumex administration during hospital. TTE with preserved LVEF CHAYA on CKD with hyperkalemia, resolved. nephrology following. PAF. currently NSR. on home aspirin but started on DOAC for secondary stroke prevention. Generalized weakness and deconditioning. continue PT and OT. unclear disposition. await approval to acute rehab. Morbid obesity BMI 58 Chronic hypoxic respiratory failure on home oxygen T2DM. continue Lantus. monitor accuchecks Hypertension, benign. DVT px: Xarelto Dispo: medically stable for discharge. await approval to post-acute care facility. discussed with case management. discontinue telemetry.
[2019-07-30] MEDS: HumaLOG 300 UNITS/3 ML VIAL SC PRN (11:48)
--- NOTE | 2019-07-30 13:24 | PRG ---
DATE OF SERVICE: 07/30/2019 SUBJECTIVE: Patient was seen and examined at bedside and overnight events noted. Patient denies any shortness of breath or chest pain or palpitation. No history of nausea or vomiting or diarrhea or fever or chills or cramps. OBJECTIVE: GENERAL: This is an obese female, in no apparent distress. VITAL SIGNS: Temperature 97.5. Heart rate 59. Respiratory rate 18. Blood pressure 149/65. HEENT: Atraumatic, normocephalic. Oral mucosa is moist NECK: Supple. CARDIOVASCULAR: S1, S2 heard. Rate and rhythm regular. RESPIRATORY: Clear to auscultation. GASTROINTESTINAL: Abdomen is soft. MUSCULOSKELETAL: No tenderness. No edema. DERMATOLOGIC: No skin rash. NEUROLOGIC: Alert and awake and oriented X3. No focal neurologic deficits. Moving all the extremities. PSYCHIATRIC: Mood and affect normal. LABORATORY DATA: Potassium 4.5, BUN is 38, and creatinine is 1.2. ASSESSMENT AND PLAN: 1. Acute kidney injury on chronic kidney disease, stage 3, stable. 2. Edema. We will start her back on home dose of Lasix. 3. Hypertension. 4. Diabetes. 5. Hyperkalemia, better. Okay with home dose of Lasix and close monitoring. Job ID: [id number]
[2019-07-30] MEDS ORDERED: Furosemide 40 MG TAB PO SCH (13:30)
[2019-07-30] MEDS: Famotidine 20 MG TAB PO SCH (21:31)
[2019-07-31] MEDS: diphenhydrAMINE 25 MG CAP PO PRN ×2 (03:45→20:24)
[2019-07-31] MEDS ORDERED: Furosemide 40 MG TAB PO SCH ×2 (07:30→16:00)
[2019-07-31] MEDS: hydrALAZINE 25 MG TAB PO SCH ×2 (10:14→20:20)
[2019-07-31] MEDS: Rivaroxaban 15 MG TAB PO SCH (10:15)
[2019-07-31] MEDS: NIFEdipine XL 60 MG TAB PO SCH ×2 (10:15→20:20)
[2019-07-31] MEDS: Insulin Glargine 25 UNITS in Pre-Filled Syringe 1 EACH SC SCH (10:16)
[2019-07-31] MEDS: HumaLOG 300 UNITS/3 ML VIAL SC PRN ×2 (13:02→17:40)
--- NOTE | 2019-07-31 13:40 | PRG ---
DATE OF SERVICE: SUBJECTIVE: Patient was seen and examined at bedside and overnight events noted. Patient denies any shortness of breath or chest pain or palpitation. No history of nausea or vomiting or diarrhea or fever or chills or cramps. OBJECTIVE: GENERAL: This is an obese female, in no acute distress. VITAL SIGNS: Temperature 97.9. . Respiratory rate 17. Blood pressure 143/65. HEENT: Atraumatic, normocephalic. Oral mucosa is moist NECK: Supple. CARDIOVASCULAR: S1, S2 heard. Rate and rhythm regular. RESPIRATORY: Clear to auscultation. GASTROINTESTINAL: Abdomen is soft. MUSCULOSKELETAL: No tenderness. No edema. DERMATOLOGIC: No skin rash. NEUROLOGIC: Alert and awake and oriented X3. No focal neurologic deficits. Moving all the extremities. PSYCHIATRIC: Mood and affect normal. LABORATORY DATA: Not done today. ASSESSMENT AND PLAN: 1. Acute kidney injury. 2. Chronic kidney disease, stage 3. 3. Edema. 4. Hypertension. 5. Type 2 diabetes. 6. Hyperkalemia, better. Labs are stable. Continue on Lasix with close monitoring on renal function. Job ID: [id number]
--- NOTE | 2019-07-31 18:04 | PDOC.HOSPP ---
- Subjective Encounter Date: 07/31/19 Encounter Time: 18:04 Subjective: cc: f/u for angioedema, acute on chronic diastolic CHF, chaya on ckd with hyperkalemia subjective: patient seen at bedside. feels okay and offers no acute complaints. still weak and not at her baseline. eager to get rehabilitation to get stronger. nurse notes no acute overnight events. medical case worker reports still awaiting insurance authorization for acute rehab. reports patient's daughter is agreeable to SNF as alternative option. - Objective Vital Signs & Weight: Vital Signs (12 hours) Temp Pulse Resp BP BP Pulse Ox Pulse Ox 07/31/19 15:35 97.7 F 60 16 166/72 H 97 07/31/19 13:17 91 L 07/31/19 11:16 97.9 F 57 L 17 143/65 H 96 07/31/19 10:15 60 163/68 H 07/31/19 10:14 60 163/68 H 07/31/19 08:00 97.4 F L 60 18 163/68 H 96 Pulse Ox Pulse Ox 07/31/19 15:35 07/31/19 13:17 89 L 92 L 07/31/19 11:16 07/31/19 10:15 07/31/19 10:14 07/31/19 08:00 Weight Weight 314 lb 12.8 oz I&O: 07/30/19 07/31/19 08/01/19 06:59 06:59 06:59 Intake Total 1380 1440 1450 Balance 1380 1440 1450 Result Diagrams: 07/28/19 04:18 07/30/19 04:43 Additional Labs: Accuchecks 07/31/19 07/31/19 07/31/19 16:35 10:31 06:06 POC Glucose 153 H 156 H 100 07/30/19 20:53 POC Glucose 140 H Hospitalist ROS - Review of Systems Other: ROS: pertinent positives per SUBJECTIVE; remainder ROS negative - Medication Medications: Active Medications Generic Name Dose Route Start Last Admin Trade Name Freq PRN Reason Stop Dose Admin Acetaminophen 650 mg 07/24/19 20:05 07/30/19 15:51 Tylenol PO 650 mg Q4H PRN Administration Headache/Fever/Mild Pain (1-3) Diphenhydramine HCl 25 mg 07/24/19 20:13 07/31/19 03:45 Benadryl PO 25 mg Q6H PRN Administration Itching & Insomnia Famotidine 20 mg 07/24/19 21:00 07/30/19 21:31 Pepcid PO 20 mg 2100 ANASTASIA Administration Hydralazine HCl 10 mg 07/25/19 17:11 07/25/19 20:36 Apresoline SLOW IVP 10 mg Q2H PRN Administration Hypertension Hydralazine HCl 100 mg 07/28/19 21:00 07/31/19 10:14 Apresoline PO 100 mg BID ANASTASIA Administration Insulin Glargine 25 units/ 0.25 mls @ 0 mls/hr 07/28/19 09:00 07/31/19 10:16 Miscellaneous Medication SC 0.25 mls QAM ANASTASIA Administration Insulin Human Lispro 0 units 07/25/19 17:14 07/31/19 17:40 Humalog SC 3 unit .AGGRESSIVE SLIDING PRN Administration Aggressive Correctional Scale Metoprolol Succinate 50 mg 07/26/19 09:00 07/31/19 10:16 Toprol Xl PO 50 mg DAILY ANASTASIA Administration Nifedipine 60 mg 07/26/19 09:00 07/31/19 10:15 Procardia Xl PO 60 mg BID ANASTASIA Administration Rivaroxaban 15 mg 07/27/19 09:00 07/31/19 10:15 Xarelto PO 15 mg DAILY ANASTASIA Administration Sodium Chloride 10 ml 07/24/19 20:05 07/31/19 10:17 Flush - Normal Saline IVF 10 ml PRN PRN Administration Saline Flush Hosp A/P - Plan PHYSICAL EXAM General Appearance: awake alert NAD General - other findings: obese Eye: PERRL, anicteric sclera ENT: normocephalic atraumatic, no oropharyngeal lesions Neck: symmetric, no JVD Heart: RRR, no murmur Respiratory: CTAB, no wheezes, no rales, no ronchi, normal chest expansion Gastrointestinal: soft, non-tender, non-distended, normal bowel sounds Extremities: 1+ LE edema Skin: normal turgor, no lesions Neurological: cranial nerve grossly intact, normal sensation to touch Musculoskeletal: normal tone, normal strength Psychiatric: normal affect, normal behavior, A&O x 3, oriented to person ASSESSMENT AND PLAN: Acute angioedema, resolved. Acute on chronic diastolic CHF exacerbation. resolving. nephrology following and transitioned to oral Lasix. s/p IV lasix and IV bumex administration during hospital. TTE with preserved LVEF CHAYA on CKD with hyperkalemia, resolved. nephrology following. PAF. currently NSR. on home aspirin but started on DOAC for secondary stroke prevention. Generalized weakness and deconditioning. continue PT and OT. unclear disposition. await approval to acute rehab; otherwise consult case management for SNF referral due to unsafe immediate disposition to home. Morbid obesity BMI 58 Chronic hypoxic respiratory failure on home oxygen T2DM. continue Lantus. monitor accuchecks Hypertension, benign. DVT px: Xarelto Dispo: medically stable for discharge. await approval to post-acute care facility. discussed with case management.
[2019-07-31] MEDS: Famotidine 20 MG TAB PO SCH (20:20)
[2019-07-31] MEDS: Acetaminophen 325 MG TAB PO PRN (20:24)
[2019-08-01] MEDS: NIFEdipine XL 60 MG TAB PO SCH ×2 (09:34→20:52)
[2019-08-01] MEDS: Insulin Glargine 25 UNITS in Pre-Filled Syringe 1 EACH SC SCH (09:35)
[2019-08-01] MEDS: hydrALAZINE 25 MG TAB PO SCH ×2 (09:35→20:51)
[2019-08-01] MEDS: Acetaminophen 325 MG TAB PO PRN ×2 (09:38→20:56)
[2019-08-01] MEDS: diphenhydrAMINE 25 MG CAP PO PRN ×2 (09:38→20:56)
[2019-08-01] MEDS: Rivaroxaban 15 MG TAB PO SCH (11:50)
[2019-08-01] MEDS: HumaLOG 300 UNITS/3 ML VIAL SC PRN ×2 (12:43→20:53)
--- NOTE | 2019-08-01 13:39 | PRG ---
DATE OF SERVICE: 08/01/2019 SUBJECTIVE: The patient was seen and examined at bedside and overnight events noted. The patient denies any shortness of breath or chest pain or palpitation. No history of nausea or vomiting or diarrhea or fever or chills or cramps. OBJECTIVE: GENERAL: This is an obese female, in no apparent distress. VITAL SIGNS: Temperature 98.9, pulse 57, respiratory rate 18, and blood pressure 141/79. HEENT: Atraumatic, normocephalic. Oral mucosa is moist NECK: Supple. CARDIOVASCULAR: S1, S2 heard. Rate and rhythm regular. RESPIRATORY: Clear to auscultation. GASTROINTESTINAL: Abdomen is soft. MUSCULOSKELETAL: No tenderness. No edema. DERMATOLOGIC: No skin rash. NEUROLOGIC: Alert and awake and oriented X3. No focal neurologic deficits. Moving all the extremities. PSYCHIATRIC: Mood and affect normal. LABORATORY DATA: Not done today. ASSESSMENT AND PLAN: 1. Acute kidney injury on chronic kidney stage 3. We will monitor labs. 2. Edema, controlled. 3. Hypertension. 4. Type 2 diabetes. 5. Hyperkalemia. We will order labs and monitor closely. Job ID: [id number]
--- NOTE | 2019-08-01 16:40 | PDOC.HOSPP ---
- Subjective Encounter Date: 08/01/19 Encounter Time: 16:40 Subjective: cc: f/u for angioedema, acute on chronic diastolic CHF, chaya on ckd with hyperkalemia subjective: patient seen at bedside. feels okay and offers no acute complaints. still weak and unsteady and not at her baseline. nursing staff notes no acute events and notes patient was denied to acute rehab and awaiting SNF authorization. also notes patient AM dose of Lantus held due to low range accucheck - Objective Vital Signs & Weight: Vital Signs (12 hours) Temp Pulse Resp BP BP Pulse Ox 08/01/19 16:19 98.1 F 61 16 147/62 H 95 08/01/19 11:48 98.0 F 57 L 20 141/79 H 96 08/01/19 08:00 97.9 F 57 L 18 163/66 H 96 08/01/19 05:00 98.1 F 84 18 134/74 94 L Weight Weight 315 lb 8 oz I&O: 07/31/19 08/01/19 08/02/19 06:59 06:59 06:59 Intake Total 1440 1750 Balance 1440 1750 Result Diagrams: 07/28/19 04:18 07/30/19 04:43 Additional Labs: Accuchecks 08/01/19 08/01/19 07/31/19 11:46 05:30 20:38 POC Glucose 194 H 70 174 H 07/31/19 16:35 POC Glucose 153 H Hospitalist ROS - Review of Systems Other: ROS: pertinent positives per SUBJECTIVE; remainder ROS negative - Medication Medications: Active Medications Generic Name Dose Route Start Last Admin Trade Name Freq PRN Reason Stop Dose Admin Acetaminophen 650 mg 07/24/19 20:05 08/01/19 09:38 Tylenol PO 650 mg Q4H PRN Administration Headache/Fever/Mild Pain (1-3) Diphenhydramine HCl 25 mg 07/24/19 20:13 08/01/19 09:38 Benadryl PO 25 mg Q6H PRN Administration Itching & Insomnia Famotidine 20 mg 07/24/19 21:00 07/31/19 20:20 Pepcid PO 20 mg 2100 ANASTASIA Administration Hydralazine HCl 10 mg 07/25/19 17:11 07/25/19 20:36 Apresoline SLOW IVP 10 mg Q2H PRN Administration Hypertension Hydralazine HCl 100 mg 07/28/19 21:00 08/01/19 09:35 Apresoline PO 100 mg BID ANASTASIA Administration Insulin Glargine 25 units/ 0.25 mls @ 0 mls/hr 07/28/19 09:00 08/01/19 09:35 Miscellaneous Medication SC Not Given QAM ANASTASIA Insulin Human Lispro 0 units 07/25/19 17:14 08/01/19 12:43 Humalog SC 3 unit .AGGRESSIVE SLIDING PRN Administration Aggressive Correctional Scale Metoprolol Succinate 50 mg 07/26/19 09:00 08/01/19 09:34 Toprol Xl PO 50 mg DAILY ANASTASIA Administration Nifedipine 60 mg 07/26/19 09:00 08/01/19 09:34 Procardia Xl PO 60 mg BID ANASTASIA Administration Rivaroxaban 15 mg 07/27/19 09:00 08/01/19 11:50 Xarelto PO 15 mg DAILY ANASTASIA Administration Sodium Chloride 10 ml 07/24/19 20:05 07/31/19 10:17 Flush - Normal Saline IVF 10 ml PRN PRN Administration Saline Flush Hosp A/P - Plan PHYSICAL EXAM General Appearance: awake alert NAD General - other findings: obese Eye: PERRL, anicteric sclera ENT: normocephalic atraumatic, no oropharyngeal lesions Neck: symmetric, no JVD Heart: RRR, no murmur Respiratory: CTAB, no wheezes, no rales, no ronchi, normal chest expansion Gastrointestinal: soft, non-tender, non-distended, normal bowel sounds Extremities: 1+ LE edema Skin: normal turgor, no lesions Neurological: cranial nerve grossly intact, normal sensation to touch Musculoskeletal: normal tone, normal strength Psychiatric: normal affect, normal behavior, A&O x 3, oriented to person ASSESSMENT AND PLAN: Acute angioedema, resolved. Acute on chronic diastolic CHF exacerbation. resolving. nephrology following and transitioned to oral Lasix. s/p IV lasix and IV bumex administration during hospital. TTE with preserved LVEF CHAYA on CKD with hyperkalemia, resolved. nephrology following. PAF. currently NSR. on home aspirin but started on DOAC for secondary stroke prevention. Generalized weakness and deconditioning. continue PT and OT. unclear disposition. await approval to acute rehab; otherwise consult case management for SNF referral due to unsafe immediate disposition to home. Morbid obesity BMI 58 Chronic hypoxic respiratory failure on home oxygen T2DM. continue Lantus and will dose adjust. monitor accuchecks Hypertension, benign. DVT px: Xarelto Dispo: medically stable for discharge. await approval to SNF
[2019-08-01] MEDS: Famotidine 20 MG TAB PO SCH (20:52)
[2019-08-02] MEDS: HumaLOG 300 UNITS/3 ML VIAL SC PRN ×2 (04:35→12:55)
[2019-08-02 07:32] LABS: Anion Gap 11 mmol/L (10-20); BUN (Urea Nitrogen) 33 mg/dL (9.8-20.1); Calc. Creatinine Clearance 77 mL/min (70-130); Calcium 8.4 mg/dL (7.8-10.44); Carbon Dioxide 30 mmol/L (23-31); Chloride 103 mmol/L (98-107); Estimated GFR-MDRD 41; Glucose 225 mg/dL (83-110); Magnesium 2.5 mg/dL (1.6-2.6); Potassium 4.9 mmol/L (3.5-5.1); Sodium 139 mmol/L (136-145)
[2019-08-02] MEDS: hydrALAZINE 25 MG TAB PO SCH ×2 (09:32→20:07)
[2019-08-02] MEDS: Insulin Glargine 15 UNITS in Pre-Filled Syringe 1 EACH SC SCH (09:36)
[2019-08-02] MEDS: NIFEdipine XL 60 MG TAB PO SCH ×2 (09:36→20:07)
[2019-08-02] MEDS ORDERED: Rivaroxaban 10 MG TAB ONE (12:20)
[2019-08-02] MEDS: Rivaroxaban 15 MG TAB PO SCH (12:55)
[2019-08-02] MEDS: Acetaminophen 325 MG TAB PO PRN ×2 (13:01→20:06)
[2019-08-02] MEDS: diphenhydrAMINE 25 MG CAP PO PRN ×2 (13:01→20:08)
--- NOTE | 2019-08-02 13:56 | PRG ---
DATE OF SERVICE: 08/02/2019 SUBJECTIVE: Patient was seen and examined at bedside and overnight events noted. Patient denies any shortness of breath or chest pain or palpitation. No history of nausea or vomiting or diarrhea or fever or chills or cramps. OBJECTIVE: GENERAL: This is a well-built female, in no apparent distress. VITAL SIGNS: Temperature 98.0. Heart rate 60. Respiratory rate 20. Blood pressure 131/57. HEENT: Atraumatic, normocephalic. Oral mucosa is moist. NECK: Supple. CARDIOVASCULAR: S1, S2 heard. Rate and rhythm regular. RESPIRATORY: Clear to auscultation. GASTROINTESTINAL: Abdomen is soft. MUSCULOSKELETAL: No tenderness. No edema. DERMATOLOGIC: No skin rash. NEUROLOGIC: Alert and awake and oriented x3. No focal neurologic deficits. Moving all the extremities. PSYCHIATRIC: Mood and affect normal. LABORATORY DATA: Potassium 4.1, BUN is 33, and creatinine is 1.5. ASSESSMENT AND PLAN: 1. Acute kidney injury on chronic kidney disease, stage 3, stable. Slight increase in creatinine. 2. Edema, controlled. 3. Hypertension. 4. Type 2 diabetes. 5. Hyperkalemia, better. Lasix dose is discontinued now and we will follow. Repeat labs in the morning. Job ID: [id number]
--- NOTE | 2019-08-02 18:02 | PDOC.HOSPP ---
- Subjective Encounter Date: 08/02/19 Encounter Time: 18:02 Subjective: cc: f/u for angioedema, acute on chronic diastolic CHF, chaya on ckd with hyperkalemia subjective: patient seen at bedside. feels okay and offers no acute complaints. sat on edge of bed but was not seen by therapy team today. discussed with daughter via telephone who is concerned about her mom going home with [facility] as her mom currently has it and lives alone and concerned that her mother's strength is not back to her baseline yet for safe disposition home. - Objective Vital Signs & Weight: Vital Signs (12 hours) Temp Pulse Resp BP BP Pulse Ox 08/02/19 09:36 60 08/02/19 09:32 60 164/74 H 08/02/19 07:55 98.0 F 57 L 22 H 131/57 L 93 L Weight Weight 314 lb 9.594 oz I&O: 08/01/19 08/02/19 08/03/19 06:59 06:59 06:59 Intake Total 1750 450 Output Total 500 Balance 1750 -50 Result Diagrams: 07/28/19 04:18 08/02/19 06:30 Additional Labs: Accuchecks 08/02/19 08/02/19 08/01/19 16:35 11:05 20:39 POC Glucose 149 H 250 H 214 H Hospitalist ROS - Review of Systems Other: ROS: pertinent positive per SUBJECTIVE. remainder ROS negative. - Medication Medications: Active Medications Generic Name Dose Route Start Last Admin Trade Name Freq PRN Reason Stop Dose Admin Acetaminophen 650 mg 07/24/19 20:05 08/02/19 13:01 Tylenol PO 650 mg Q4H PRN Administration Headache/Fever/Mild Pain (1-3) Diphenhydramine HCl 25 mg 07/24/19 20:13 08/02/19 13:01 Benadryl PO 25 mg Q6H PRN Administration Itching & Insomnia Famotidine 20 mg 07/24/19 21:00 08/01/19 20:52 Pepcid PO 20 mg 2100 ANASTASIA Administration Hydralazine HCl 10 mg 07/25/19 17:11 07/25/19 20:36 Apresoline SLOW IVP 10 mg Q2H PRN Administration Hypertension Hydralazine HCl 100 mg 07/28/19 21:00 08/02/19 09:32 Apresoline PO 100 mg BID ANASTASIA Administration Insulin Glargine 15 units/ 0.15 mls @ 0 mls/hr 08/02/19 09:00 08/02/19 09:36 Miscellaneous Medication SC 0.15 mls QAM ANASTASIA Administration Insulin Human Lispro 0 units 07/25/19 17:14 08/02/19 12:55 Humalog SC 6 unit .AGGRESSIVE SLIDING PRN Administration Aggressive Correctional Scale Metoprolol Succinate 50 mg 07/26/19 09:00 08/02/19 09:31 Toprol Xl PO 50 mg DAILY ANASTASIA Administration Nifedipine 60 mg 07/26/19 09:00 08/02/19 09:36 Procardia Xl PO 60 mg BID ANASTASIA Administration Rivaroxaban 15 mg 07/27/19 09:00 08/02/19 12:55 Xarelto PO 15 mg DAILY ANASTASIA Administration Sodium Chloride 10 ml 07/24/19 20:05 07/31/19 10:17 Flush - Normal Saline IVF 10 ml PRN PRN Administration Saline Flush Hosp A/P - Plan PHYSICAL EXAM General Appearance: awake alert NAD General - other findings: obese Eye: PERRL, anicteric sclera ENT: normocephalic atraumatic, no oropharyngeal lesions Neck: symmetric, no JVD Heart: RRR, no murmur Respiratory: CTAB, no wheezes, no rales, no ronchi, normal chest expansion Gastrointestinal: soft, non-tender, non-distended, normal bowel sounds Extremities: 1+ LE edema Skin: normal turgor, no lesions Neurological: cranial nerve grossly intact, normal sensation to touch Musculoskeletal: normal tone, normal strength Psychiatric: normal affect, normal behavior, A&O x 3, oriented to person ASSESSMENT AND PLAN: Acute angioedema, resolved. Acute on chronic diastolic CHF exacerbation. resolving. nephrology following and transitioned to oral Lasix. s/p IV lasix and IV bumex administration during hospital. TTE with preserved LVEF CHAYA on CKD with hyperkalemia, resolved. nephrology following. GFR at baseline. PAF. currently NSR. on home aspirin but started on DOAC for secondary stroke prevention. Generalized weakness and deconditioning. continue PT and OT. denied for acute rehab; await authorization for SNF due to unsafe immediate disposition to home. Morbid obesity BMI 58 Chronic hypoxic respiratory failure on home oxygen T2DM. continue Lantus and will dose adjust. monitor accuchecks Hypertension, benign. DVT px: Xarelto Dispo: medically stable for discharge. await approval to SNF
[2019-08-02] MEDS: Famotidine 20 MG TAB PO SCH (20:06)
[2019-08-03] MEDS: HumaLOG 300 UNITS/3 ML VIAL SC PRN (05:50)
[2019-08-03 06:22] LABS: Anion Gap 10 mmol/L (10-20); BUN (Urea Nitrogen) 35 mg/dL (9.8-20.1); Calc. Creatinine Clearance 78 mL/min (70-130); Calcium 8.8 mg/dL (7.8-10.44); Carbon Dioxide 32 mmol/L (23-31); Chloride 103 mmol/L (98-107); Estimated GFR-MDRD 41; Glucose 193 mg/dL (83-110); Potassium 5.2 mmol/L (3.5-5.1); Sodium 140 mmol/L (136-145)
[2019-08-03] MEDS: Rivaroxaban 15 MG TAB PO SCH (10:47)
[2019-08-03] MEDS: Insulin Glargine 15 UNITS in Pre-Filled Syringe 1 EACH SC SCH (10:48)
[2019-08-03] MEDS: hydrALAZINE 25 MG TAB PO SCH ×2 (10:51→20:03)
[2019-08-03] MEDS: NIFEdipine XL 60 MG TAB PO SCH ×2 (10:51→20:04)
[2019-08-03] MEDS ORDERED: Furosemide 20 MG TAB PO SCH (11:30)
--- NOTE | 2019-08-03 11:49 | PRG ---
DATE OF SERVICE: 08/03/2019 SUBJECTIVE: Patient was seen and examined at bedside and overnight events noted. Patient denies any shortness of breath or chest pain or palpitation. No history of nausea or vomiting or diarrhea or fever or chills or cramps. OBJECTIVE: GENERAL: This is an obese female, in no apparent distress. VITAL SIGNS: Temperature 98.4. Heart rate 55. Respiratory rate 18. Blood pressure 149/64. HEENT: Atraumatic, normocephalic. Oral mucosa is moist NECK: Supple. CARDIOVASCULAR: S1, S2 heard. Rate and rhythm regular. RESPIRATORY: Clear to auscultation. GASTROINTESTINAL: Abdomen is soft. MUSCULOSKELETAL: No tenderness. No edema. DERMATOLOGIC: No skin rash. NEUROLOGIC: Alert and awake and oriented X3. No focal neurologic deficits. Moving all the extremities. PSYCHIATRIC: Mood and affect normal. LABORATORY DATA: Potassium is 5.2, BUN is 35, creatinine is 1.5. ASSESSMENT AND PLAN: 1. Acute kidney injury, stable. 2. Chronic kidney disease, stage 3, stable. 3. Edema. 4. Hyperkalemia. We will give a dose of Lasix. 5. Hypertension, stable. Give one dose of Lasix today and then we will follow. Limit potassium intake. Job ID: [id number]
--- NOTE | 2019-08-03 12:27 | PDOC.HOSPP ---
- Subjective Encounter Date: 08/03/19 Encounter Time: 12:26 Subjective: cc: f/u for angioedema, acute on chronic diastolic CHF, chaya on ckd with hyperkalemia subjective: patient seen at bedside. feels okay and offers no acute complaints. - Objective Vital Signs & Weight: Vital Signs (12 hours) Temp Pulse Resp BP BP Pulse Ox 08/03/19 11:37 98.1 F 55 L 18 178/74 H 92 L 08/03/19 10:51 63 164/70 H 08/03/19 07:28 98.4 F 55 L 18 149/64 H 92 L Weight Weight 319 lb 14.252 oz I&O: 08/02/19 08/03/19 08/04/19 06:59 06:59 06:59 Intake Total 450 500 Output Total 500 550 Balance -50 -50 Result Diagrams: 07/28/19 04:18 08/03/19 05:37 Additional Labs: Accuchecks 08/03/19 08/03/19 08/02/19 11:40 05:14 21:03 POC Glucose 171 H 208 H 178 H 08/02/19 08/02/19 16:35 04:35 POC Glucose 149 H 219 H Hospitalist ROS - Review of Systems Other: ROS: pertinent positive per SUBJECTIVE; remainder ROS negative - Medication Medications: Active Medications Generic Name Dose Route Start Last Admin Trade Name Freq PRN Reason Stop Dose Admin Acetaminophen 650 mg 07/24/19 20:05 08/02/19 20:06 Tylenol PO 650 mg Q4H PRN Administration Headache/Fever/Mild Pain (1-3) Diphenhydramine HCl 25 mg 07/24/19 20:13 08/02/19 20:08 Benadryl PO 25 mg Q6H PRN Administration Itching & Insomnia Famotidine 20 mg 07/24/19 21:00 08/02/19 20:06 Pepcid PO 20 mg 2100 ANASTASIA Administration Hydralazine HCl 10 mg 07/25/19 17:11 07/25/19 20:36 Apresoline SLOW IVP 10 mg Q2H PRN Administration Hypertension Hydralazine HCl 100 mg 07/28/19 21:00 08/03/19 10:51 Apresoline PO 100 mg BID ANASTASIA Administration Insulin Glargine 15 units/ 0.15 mls @ 0 mls/hr 08/02/19 09:00 08/03/19 10:48 Miscellaneous Medication SC 0.15 mls QAM ANASTASIA Administration Insulin Human Lispro 0 units 07/25/19 17:14 08/03/19 05:50 Humalog SC 6 unit .AGGRESSIVE SLIDING PRN Administration Aggressive Correctional Scale Metoprolol Succinate 50 mg 07/26/19 09:00 08/03/19 10:51 Toprol Xl PO 50 mg DAILY ANASTASIA Administration Nifedipine 60 mg 07/26/19 09:00 08/03/19 10:51 Procardia Xl PO 60 mg BID ANASTASIA Administration Rivaroxaban 15 mg 07/27/19 09:00 08/03/19 10:47 Xarelto PO 15 mg DAILY ANASTASIA Administration Sodium Chloride 10 ml 07/24/19 20:05 07/31/19 10:17 Flush - Normal Saline IVF 10 ml PRN PRN Administration Saline Flush Hosp A/P - Plan PHYSICAL EXAM General Appearance: awake alert NAD General - other findings: obese Eye: PERRL, anicteric sclera ENT: normocephalic atraumatic, no oropharyngeal lesions Neck: symmetric, no JVD Heart: RRR, no murmur Respiratory: CTAB, no wheezes, no rales, no ronchi, normal chest expansion Gastrointestinal: soft, non-tender, non-distended, normal bowel sounds Extremities: 1+ LE edema Skin: normal turgor, no lesions Neurological: cranial nerve grossly intact, normal sensation to touch Musculoskeletal: normal tone, normal strength Psychiatric: normal affect, normal behavior, A&O x 3, oriented to person ASSESSMENT AND PLAN: Acute angioedema, resolved. Acute on chronic diastolic CHF exacerbation. resolving. nephrology following and transitioned to oral Lasix 40 mg. s/p IV lasix and IV bumex administration during hospital. TTE with preserved LVEF CHAYA on CKD with hyperkalemia, resolved. nephrology following. GFR at baseline. PAF. currently NSR. on home aspirin but started on DOAC for secondary stroke prevention. Generalized weakness and deconditioning. continue PT and OT. denied for acute rehab; await authorization for SNF due to unsafe immediate disposition to home. Morbid obesity BMI 58 Chronic hypoxic respiratory failure on home oxygen T2DM. continue Lantus and will dose adjust. monitor accuchecks Hypertension, benign. DVT px: Xarelto Dispo: patient is medically stable for discharge. await approval to SNF due to unsafe disposition. continue to monitor for ongoing inpatient improvement to allow disposition home with [facility] with ongoing therapies.
[2019-08-03] MEDS ORDERED: hydrALAZINE 20 MG/ML VIAL SLOW IVP PRN (17:46)
[2019-08-03] MEDS ORDERED: Acetaminophen 325 MG TAB PO PRN (17:46)
[2019-08-03] MEDS ORDERED: diphenhydrAMINE 25 MG CAP PO PRN (17:46)
[2019-08-03] MEDS ORDERED: Senokot S 8.6-50 MG TAB PO PRN (17:46)
[2019-08-03] MEDS ORDERED: Dextrose 50% Abboject 50 ML SYRINGE IVP PRN (17:47)
[2019-08-03] MEDS ORDERED: Dextrose 5% in Water 1,000 ML IV PRN (17:47)
[2019-08-03] MEDS ORDERED: HumaLOG 300 UNITS/3 ML VIAL SC PRN (17:47)
[2019-08-03] MEDS ORDERED: Famotidine 20 MG TAB PO SCH (21:00)
[2019-08-04] MEDS: hydrALAZINE 25 MG TAB PO SCH (08:11)
[2019-08-04] MEDS: NIFEdipine XL 60 MG TAB PO SCH (08:13)
[2019-08-04] MEDS ORDERED: Insulin Glargine 15 UNITS in Pre-Filled Syringe 1 EACH SC SCH (09:00)
[2019-08-04] MEDS ORDERED: Rivaroxaban 15 MG TAB PO SCH (09:00)
[2019-08-04 11:46] VITALS: BP 166/57; TEMP 98.4
--- NOTE | 2019-08-04 13:08 | PRG ---
DATE OF SERVICE: 08/04/2019 SUBJECTIVE: Patient was seen and examined at bedside and overnight events noted. Patient denies any shortness of breath or chest pain or palpitation. No history of nausea or vomiting or diarrhea or fever or chills or cramps. OBJECTIVE: GENERAL: This is an obese female, in no apparent distress. VITAL SIGNS: Temperature 98.5. Heart rate 54. Respiratory rate 20. Blood pressure . HEENT: Atraumatic, normocephalic. Oral mucosa is moist NECK: Supple. CARDIOVASCULAR: S1, S2 heard. Rate and rhythm regular. RESPIRATORY: Clear to auscultation. GASTROINTESTINAL: Abdomen is soft. MUSCULOSKELETAL: No tenderness. No edema. DERMATOLOGIC: No skin rash. NEUROLOGIC: Alert and awake and oriented X3. No focal neurologic deficits. Moving all the extremities. PSYCHIATRIC: Mood and affect normal. LABORATORY DATA: Not done today. ASSESSMENT AND PLAN: 1. Acute kidney injury on chronic kidney stage 3, stable. 2. Edema, controlled. 3. Hyperkalemia, limit potassium. 4. Hypertension, stable. Monitor labs. Job ID: [id number]
--- NOTE | 2019-08-07 10:02 | DIS ---
DATE OF ADMISSION: 07/24/2019 DATE OF DISCHARGE: 08/04/2019 PRIMARY CARE PHYSICIAN: . CONSULTING PHYSICIANS: 1. Dr. Aguila and Dr. Yeager of Nephrology. 2. Dr. Hilton, Cardiology. DISCHARGE DIAGNOSES: 1. Nueal-kg-iyyuhvi diastolic congestive heart failure exacerbation, resolving. 2. Edema, controlled. 3. Xapgb-qc-[id number] kidney injury. 4. Hyperkalemia. 5. Hypertension, stable. 6. Paroxysmal atrial fibrillation converted to normal sinus rhythm and started on for secondary stroke prevention. 7. Generalized weakness and deconditioning. 8. Morbid obesity with BMI 58. 9. Chronic hypoxic respiratory failure, on home oxygen. 10. Type-2 diabetes mellitus. HOSPITAL COURSE: Ms. Orozco is a pleasant 69-year-old woman, who presented with generalized weakness and facial swelling, and admitted due to angioedema and CHF exacerbation. The patient was treated with steroids, Benadryl, Pepcid, and Solu-Medrol. Her angioedema resolved. She also underwent diuresis and her orthodontist, Dr. Hilton, was consulted. She was seen by Dr. Hilton on 07/24/2019, was restarted on her regular home dose of metoprolol. The patient apparently had a transient episode of atrial fibrillation in the emergency department. An echo was ordered and done on 07/25/2019. She was found to have an EF of 60% to 65%. The left atrium was moderately dilated and she was found to have mild MR and mild TR. Due to hyperkalemia and [id number] renal insufficiency, Nephrology was consulted. She was initially seen by Dr. Aguila, who advised to continue diuresis. He felt her medications were appropriate based on her GFR. He did agree with plans to give Kayexalate for hyperkalemia. Also, the patient was in metabolic acidosis, therefore agreed with plans for sodium bicarbonate. She continued to be followed by Dr. Yeager throughout her hospital stay. The patient received PT, OT during her stay and was deemed to be unsafe for discharge home as she is unable to cope with the generalized weakness and morbid obesity. Initially, rehab screening was done, however, insurance did not cover this, therefore she has been awaiting placement to [facility], where she previously worked. On day of discharge, the patient has had resolution of the angioedema and improvement of the CHF exacerbation. She is feeling well and is without any complaints. She has been tolerating a regular diet. Denies any nausea or vomiting. No chest pain or palpitations. She uses oxygen at home and has not had any worsening in her breathing. Her blood pressure has been well controlled. PHYSICAL EXAMINATION: GENERAL: The patient appears well developed, obese, and in no acute distress. HEENT: Normocephalic, atraumatic. Pupils are equal, round, and reactive to light. Sclerae anicteric. Oropharynx is clear. NECK: Supple and symmetric. CARDIAC: Regular rate and rhythm. LUNGS: Clear to auscultation bilaterally without wheezes, rales, or rhonchi. Normal chest expansion. GI: Soft, nontender, nondistended. Normoactive bowel sounds present. Obese. EXTREMITIES: Trace lower extremity edema. SKIN: Warm and dry. NEUROLOGIC: Alert and oriented x3. Cranial nerves grossly intact. MUSCULOSKELETAL: Normal tone, normal strength. LABORATORY DATA: Most recent labs showed a white count of 7.1, hemoglobin 10.8, hematocrit 33.2, platelets 212. BMP from 08/03/2019 showed sodium 140, potassium 5.2, BUN 35, creatinine 1.52, GFR 41, glucose 193, calcium 9.8. IMAGING DATA: 1. Chest x-ray done on 07/24/2019 demonstrated cardiomegaly. No infiltrates or signs of failure. Atherosclerotic changes of the aorta present. 2. Echo as above. DISCHARGE MEDICATIONS: 1. Hydralazine 100 mg p.o. twice daily. 2. Insulin glargine . 3. Toprol-XL 50 mg p.o. daily. 4. Procardia XL 60 mg p.o. b.i.d. 5. Xarelto 15 mg p.o. daily. 6. Senna 2 tablets p.o. b.i.d. p.r.n. for constipation. Otherwise, advised to resume all other home medications. ACTIVITY: As tolerated. DIET: Heart healthy/consistent carb diet (1800). FOLLOWUP: 1. The patient is advised to follow up with primary care physician within 72 hours. 2. Follow up with Nephrology as recommended. 3. She is advised to continue PT, OT, given general deconditioning and weakness. 4. Continue home O2. 5. The patient will follow up with Dr. Hilton as recommended. He did advise a 30-day heart monitor to . The patient's case discussed with attending, who agrees with plan of care as described above. Job ID: [id number]
== END 2019-08-04 15:57 | DRG 915 ==
LOC: ERS 15:13 → 2SW 18:29 → OBSVTOIN 18:29 → 2SW 20:54 → 2NO 07-25 12:29 → T4-B 07-31 22:44 → UNDODISIN 08-03 16:25
PROVIDERS: ADMIT Internal Medicine; ATTEND Internal Medicine
DX: T78.3XXA Angioneurotic edema, initial encounter (principal); I50.31 Acute diastolic (congestive) heart failure; N17.9 Acute kidney failure, unspecified; Z68.43 Body mass index [BMI] 50.0-59.9, adult; E87.2 Acidosis; J96.11 Chronic respiratory failure with hypoxia; I13.0 Hypertensive heart and chronic kidney disease with heart failure and stage 1 through stage 4 chronic kidney disease, or unspecified chronic kidney disease; I50.32 Chronic diastolic (congestive) heart failure; E87.5 Hyperkalemia; E78.5 Hyperlipidemia, unspecified; G47.33 Obstructive sleep apnea (adult) (pediatric); E66.01 Morbid (severe) obesity due to excess calories; I48.0 Paroxysmal atrial fibrillation; E78.00 Pure hypercholesterolemia, unspecified; E11.65 Type 2 diabetes mellitus with hyperglycemia; N18.3 Chronic kidney disease, stage 3 (moderate); E11.22 Type 2 diabetes mellitus with diabetic chronic kidney disease; Z88.0 Allergy status to penicillin; Z90.49 Acquired absence of other specified parts of digestive tract; Z98.890 Other specified postprocedural states; Z88.2 Allergy status to sulfonamides; Z88.8 Allergy status to other drugs, medicaments and biological substances
CPT/HCPCS: 36415; 36416; 71045; 80048; 80053; 80069; 83036; 83735; 83880; 84443; 84484; 85025; 93005; 93306; J0360; J1815; J1940; J2920; J3490; J7512; Q0163

== ENCOUNTER 2019-08-17 17:03 | Inpatient (IN) | payer MEDICARE, MEDICAID ==
[2019-08-17] MEDS ORDERED: Furosemide 20 MG/2 ML VIAL ONE (18:03)
[2019-08-17 18:29] LABS: #Eosinphils 0.3 thou/uL (0.0-0.7); #Lymphocytes 1.2 thou/uL (1.20-3.40); #Monocytes 0.5 thou/uL (0.11-0.59); #Neutrophils 4.5 thou/uL (1.40-6.50); %Basophils 0.5 % (0.0-1.0); %Eosinophils 4.1 % (0.0-10.0); %Lymphocytes 18.3 % (21.0-51.0); %Monocytes 6.9 % (0.0-10.0); %Neutrophils 70.2 % (42.0-75.0); Hemoglobin 11.3 g/dL (12.0-16.0); Mean Corpuscular HGB CONC 32.9 g/dL (32.0-36.0); Mean Corpuscular Hemoglobin 31.4 pg (27.0-31.0); Mean Corpuscular Volume 95.4 fL (78.0-98.0); Mean Platelet Volume 9.1 fL (7.4-10.4); Platelet Count 231 thou/uL (130-400); RBC Distribution Width 15.5 % (11.5-14.5); Red Blood Cell (RBC) Count 3.58 mill/uL (4.20-5.40); White Blood Cell (WBC) Count 6.5 thou/uL (4.8-10.8)
--- NOTE | 2019-08-17 18:40 | RAD ---
Chest 2 views HISTORY: Dyspnea. COMPARISON: 07/24/2019. FINDINGS: Cardiac silhouette remains magnified and enlarged. Pulmonary vasculature slightly engorged. Mediastinum is midline with aortic calcification. No lobar consolidation or evidence of pneumothorax. IMPRESSION: Cardiomegaly and pulmonary vascular congestion appear stable. Atherosclerosis.
[2019-08-17 18:50] LABS: ALT (SGPT) 60 U/L (8-55); AST (SGOT) 41 U/L (5-34); Albumin 3.8 g/dL (3.4-4.8); Alkaline Phosphatase 153 U/L (40-110); Anion Gap 12 mmol/L (10-20); BUN (Urea Nitrogen) 31 mg/dL (9.8-20.1); Bilirubin, Total 0.5 mg/dL (0.2-1.2); Calc. Creatinine Clearance 0 mL/min (70-130); Calcium 8.6 mg/dL (7.8-10.44); Carbon Dioxide 30 mmol/L (23-31); Chloride 103 mmol/L (98-107); Estimated GFR-MDRD 43; Globulin 3.1 g/dL (2.4-3.5); Glucose 114 mg/dL (83-110); Potassium 4.2 mmol/L (3.5-5.1); Protein, Total 6.9 g/dL (6.0-8.3); Sodium 141 mmol/L (136-145)
[2019-08-17] MEDS ORDERED: Dextrose 5% in Water 1,000 ML IV PRN (21:36)
[2019-08-17] MEDS ORDERED: Ondansetron ODT 4 MG TAB PO PRN (21:36)
[2019-08-17] MEDS ORDERED: Acetaminophen 500 MG TAB PO PRN (21:36)
[2019-08-17] MEDS ORDERED: Ondansetron PF 4 MG/2 ML Vial IVP PRN (21:36)
[2019-08-17] MEDS ORDERED: HumaLOG 300 UNITS/3 ML VIAL SC PRN ×2 (21:36)
[2019-08-17] MEDS ORDERED: Dextrose 50% Abboject 50 ML SYRINGE SLOW IVP PRN (21:36)
[2019-08-17] MEDS ORDERED: PROVENTIL INHALER 6.7 G (200 INHALATIONS) INH PRN (21:36)
[2019-08-17] MEDS ORDERED: hydrALAZINE 20 MG/ML VIAL ONE (22:30)
[2019-08-17] MEDS: hydrALAZINE 20 MG/ML VIAL SLOW IVP PRN (22:45)
--- NOTE | 2019-08-18 02:53 | HP ---
PRIMARY CARE PROVIDER: RAMA Haines CHIEF COMPLAINT: Shortness of breath. HISTORY OF PRESENT ILLNESS: This is a 69-year-old female, who presents to [facility] in transfer from [facility], where the patient is a current resident over the last 10 to 12 days. The patient was recently discharged from [facility] on 08/06/2019 after an acute on chronic diastolic congestive heart failure exacerbation, treated with IV Lasix. The patient was also noted with paroxysmal atrial fibrillation converting to sinus mechanism, and placed on Xarelto for anticoagulation. The patient states she has been receiving physical therapy, ambulating with a rolling walker for short distances, attempting to regain her strength to return home in the [place] area. The patient admitted to increasing shortness of breath over the last 24 to 48 hours and noted swelling of her lower extremities. The patient states she has been compliant with the medications she was given at the correction facility and denies any specific dietary indiscretion. The patient denied any specific fever, chills, recent fall, or dysuria. In the emergency room, the patient underwent general evaluation including chest imaging showing pulmonary vascular edema. The patient received IV Lasix 40 mg x1 dose and was referred to the Hospitalist Service for further evaluation. PAST MEDICAL HISTORY: 1. Chronic diastolic congestive heart failure with preserved ejection fraction of 60% to 65%. 2. Chronic kidney disease, stage 3. 3. Morbid obesity. 4. Obstructive sleep apnea. 5. Chronic hypoxic respiratory failure, on chronic oxygen supplementation at 2 to 3 L/minute by nasal cannula. 6. Generalized weakness with deconditioning. 7. Hyperlipidemia. PAST SURGICAL HISTORY: 1. Status post right ankle repair. 2. Status post hysterectomy. 3. Status post laser surgery for diabetic retinopathy. CURRENT MEDICATIONS: 1. ProAir HFA 2 puffs inhaled q.4-6 hours p.r.n. 2. Vitamin C 400 mg p.o. daily. 3. Enteric-coated aspirin 81 mg p.o. daily. 4. Lipitor 80 mg p.o. at bedtime. 5. Lantus insulin 45 units subcutaneously q.a.m. and 15 units subcutaneously at bedtime. 6. Isosorbide dinitrate 30 mg p.o. daily. 7. Magnesium oxide 400 mg p.o. daily. 8. Metoprolol succinate 50 mg p.o. daily. 9. Protonix 40 mg p.o. daily. 10. Vitamin E 1000 units p.o. daily. 11. Lasix 40 mg p.o. daily. 12. Hydralazine 100 mg p.o. b.i.d. 13. Procardia XL 60 mg p.o. b.i.d. 14. Xarelto 15 mg p.o. daily. ALLERGIES: TO CARVEDILOL, PENICILLIN, SULFA. FAMILY HISTORY: Positive for hypertension and diabetes mellitus. SOCIAL HISTORY: Currently resides at [facility], originally from the [facility]. No alcohol, tobacco, or illicit drug use. Ambulates with a rolling walker with standby/contact guard assistance. REVIEW OF SYSTEMS: CONSTITUTIONAL: Negative for weight loss or gain, ability to conduct usual activities. SKIN: Negative for rash, itching. EYES: Negative for double vision, pain. ENT/MOUTH: Negative for nose bleeding, neck stiffness, pain, tenderness. CARDIOVASCULAR: Negative for palpitations, dyspnea on exertion, orthopnea. RESPIRATORY: Negative for shortness of breath, wheezing, cough, hemoptysis, fever or night sweats. GASTROINTESTINAL: Negative for poor appetite, abdominal pain, heartburn, nausea, vomiting, constipation, or diarrhea. GENITOURINARY: Negative for urgency, frequency, dysuria, nocturia. MUSCULOSKELETAL: Negative for pain, swelling. NEUROLOGIC/PSYCHIATRIC: Negative for anxiety, depression. ALLERGY/IMMUNOLOGIC: Negative for skin rash, bleeding tendency. Otherwise negative except as stated per HPI. PHYSICAL EXAMINATION: VITAL SIGNS: On admission, blood pressure 211/89, pulse is 58, respiratory rate 18, temperature 98.1 degrees Fahrenheit, O2 saturation 100% on 2 L/minute by nasal cannula. GENERAL APPEARANCE: This is a 69-year-old female, lying on the hospital bed, alert and oriented x3, pleasant, responsive, in no acute distress. HEENT: Pupils are equal, round, reactive to light and accommodation. Extraocular muscles are intact. No scleral icterus. No conjunctival injection. Nares patent. OP is clear. Teeth in fair repair. Nasal cannula in place. NECK: Supple. No cervical adenopathy. No thyromegaly. No carotid bruits. No JVD appreciated. Cervical spine with full active and passive range of motion. CHEST: Diminished breath sounds bilaterally with bibasilar crackles. CARDIOVASCULAR: S1 and S2 with distant heart sounds. No murmur, rub, or gallop appreciated. ABDOMEN: Obese with landmarks difficult to palpate due to patient's body habitus. No palpable mass. No rebound or guarding appreciated. EXTREMITIES: Warm and dry with fair turgor. Pitting edema to the knees bilaterally. Pulses are palpable distally at the dorsalis pedis, posterior tibial, and popliteal arteries bilaterally. Capillary refill less than 2 seconds. NEUROLOGIC: Cranial nerves 2 through 12 are grossly intact. No focal or lateralizing signs appreciated. PERTINENT LABORATORY AND X-RAY FINDINGS: Sodium 141, potassium 4.2, chloride 103, CO2 of 30, BUN 31, creatinine 1.46, estimated GFR 43, glucose 114, calcium 8.6, AST 41, ALT of 60, alkaline phosphatase 153. BNP 561, previously noted 559 on 07/24/2019. CBC showed a white blood cell count of 6.5, hemoglobin 11, hematocrit 34, and platelet count 231 with normal differential. Portable chest x-ray dated 08/17/2019, showed cardiomegaly with pulmonary vascular prominence. EKG dated 08/17/2019 by my interpretation shows a sinus bradycardia with heart rates in the upper 50s. Attenuated R-waves noted in the precordial leads. Normal axis. No acute ST-T wave changes noted. ASSESSMENT AND PLAN: 1. Acute on chronic diastolic congestive heart failure exacerbation. The patient will be admitted to the telemetry unit. Continue Lasix 40 mg IV b.i.d. Daily weights with Is and Os. Recent 2D transthoracic echocardiogram, 07/25/2019, showed preserved ejection fraction of 60% to 65%. 2. Acute on chronic hypoxic respiratory failure. Suspect multifactorial process including #1 in conjunction with obstructive sleep apnea and morbid obesity. Continue oxygen supplementation to maintain O2 saturations greater than or equal to 90%. Titrate oxygen to optimal clinical response. 3. Chronic kidney disease, stage 3. Avoid nephrotoxic agents and limit contrast exposure. Serial creatinine monitoring. 4. Hypertension. Poorly controlled. Resume home blood pressure regimen and monitor clinical response. IV hydralazine and labetalol p.r.n. systolic greater than or equal to 170. 5. Diabetes mellitus type 2, insulin requiring. Insulin sliding scale for reflexive coverage. Continue home regimen of Lantus 45 units subcutaneously q.a.m. and 15 units subcutaneously at bedtime. ADA diet. 6. Chronic anticoagulation. Continue Xarelto 15 mg p.o. daily. 7. Prophylaxis. SCDs while in bed. Pepcid 20 mg p.o. b.i.d. PT evaluation for functional assessment in the a.m. CODE STATUS: Full. Surrogate medical decision maker is the patient's daughter. Job ID: [id number]
[2019-08-18] MEDS ORDERED: Furosemide 40 MG/4 ML VIAL ONE (04:58)
[2019-08-18] MEDS: Furosemide 40 MG/4 ML VIAL SLOW IVP SCH ×2 (05:02→14:52)
[2019-08-18 05:25] LABS: Hemoglobin 11.2 g/dL (12.0-16.0); Lymphocytes 14 % (21-51); MDiff Complete? YES; Mean Corpuscular HGB CONC 31.4 g/dL (32.0-36.0); Mean Corpuscular Hemoglobin 30.4 pg (27.0-31.0); Mean Corpuscular Volume 96.8 fL (78.0-98.0); Mean Platelet Volume 8.9 fL (7.4-10.4); Metamyelocyte 2 % (0-0); Monocytes 2 % (0-10); Neutrophil 81 % (42-75); Platelet Count 246 thou/uL (130-400); Platelet Morphology Comment Appears Adequate; RBC Distribution Width 15.2 % (11.5-14.5); Red Blood Cell (RBC) Count 3.69 mill/uL (4.20-5.40); White Blood Cell (WBC) Count 6.6 thou/uL (4.8-10.8)
[2019-08-18] MEDS ORDERED: hydrALAZINE 20 MG/ML VIAL ONE (05:27)
[2019-08-18] MEDS: hydrALAZINE 20 MG/ML VIAL SLOW IVP PRN (05:30)
[2019-08-18 05:35] LABS: ALT (SGPT) 50 U/L (8-55); AST (SGOT) 23 U/L (5-34); Albumin 3.6 g/dL (3.4-4.8); Alkaline Phosphatase 151 U/L (40-110); Anion Gap 14 mmol/L (10-20); BUN (Urea Nitrogen) 30 mg/dL (9.8-20.1); Bilirubin, Total 0.5 mg/dL (0.2-1.2); Calc. Creatinine Clearance 0 mL/min (70-130); Calcium 8.7 mg/dL (7.8-10.44); Carbon Dioxide 27 mmol/L (23-31); Chloride 104 mmol/L (98-107); Estimated GFR-MDRD 46; Glucose 135 mg/dL (83-110); Magnesium 2.1 mg/dL (1.6-2.6); Potassium 4.5 mmol/L (3.5-5.1); Protein, Total 6.6 g/dL (6.0-8.3); Sodium 140 mmol/L (136-145)
[2019-08-18] MEDS ORDERED: Aspirin Chewable 81 MG TAB ONE (08:31)
[2019-08-18] MEDS ORDERED: Famotidine 20 MG TAB ONE (08:31)
[2019-08-18] MEDS: Famotidine 20 MG TAB PO SCH ×2 (08:52→20:45)
[2019-08-18] MEDS: hydrALAZINE 25 MG TAB PO SCH ×2 (08:52→20:46)
[2019-08-18] MEDS: Aspirin 81 mg Enteric Coated Tablet PO SCH (08:52)
[2019-08-18] MEDS: NIFEdipine XL 60 MG TAB PO SCH ×2 (08:53→20:46)
[2019-08-18] MEDS: Magnesium Oxide 400 MG TAB PO SCH (08:53)
[2019-08-18] MEDS: Isosorbide Dinitrate 20 MG TAB PO SCH (08:53)
[2019-08-18] MEDS: Rivaroxaban 15 MG TAB PO SCH (08:54)
[2019-08-18] MEDS ORDERED: Enoxaparin Sodium 30 MG/0.3 ML SYRINGE SC SCH (09:00)
[2019-08-18 12:11] VITALS: BMI 58.3
[2019-08-18] MEDS: Insulin Glargine 30 UNITS in Pre-Filled Syringe 1 EACH SC SCH (13:05)
--- NOTE | 2019-08-18 15:47 | PDOC.HOSPP ---
- Subjective Encounter Date: 08/18/19 Encounter Time: 13:20 Subjective: sob is better, no chest pain or palp - Objective Vital Signs & Weight: Vital Signs (12 hours) Temp Pulse Resp BP BP Pulse Ox 08/18/19 12:25 159/70 H 08/18/19 12:17 96 08/18/19 12:07 98.3 F 63 20 181/81 H 96 08/18/19 08:53 66 211/88 H 08/18/19 08:52 66 211/88 H 08/18/19 05:30 66 Weight Weight 319 lb Result Diagrams: 08/18/19 04:57 08/18/19 04:57 Additional Labs: Accuchecks 08/18/19 08/17/19 08:43 22:38 POC Glucose 105 142 H Hospitalist ROS - Medication Medications: Active Medications Generic Name Dose Route Start Last Admin Trade Name Freq PRN Reason Stop Dose Admin Aspirin 81 mg 08/18/19 09:00 08/18/19 08:52 Ecotrin PO 81 mg DAILY ANASTASIA Administration Famotidine 20 mg 08/18/19 09:00 08/18/19 08:52 Pepcid PO 20 mg BID ANASTASIA Administration Furosemide 40 mg 08/18/19 06:00 08/18/19 14:52 Lasix SLOW IVP 40 mg 0600,1400 ANASTASIA Administration Hydralazine HCl 10 mg 08/17/19 21:36 08/18/19 05:30 Apresoline SLOW IVP 10 mg Q4H PRN Administration SBP > 180 and HR < 70 Hydralazine HCl 100 mg 08/18/19 09:00 08/18/19 08:52 Apresoline PO 100 mg BID ANASTASIA Administration Insulin Glargine 30 units/ 0.3 mls @ 0 mls/hr 08/18/19 09:00 08/18/19 13:05 Miscellaneous Medication SC Not Given QAM [facility] Isosorbide Dinitrate 30 mg 08/18/19 09:00 08/18/19 08:53 Isordil PO 30 mg DAILY ANASTASIA Administration Magnesium Oxide 400 mg 08/18/19 09:00 08/18/19 08:53 Magnesium Oxide PO 400 mg DAILY ANASTASIA Administration Metoprolol Succinate 50 mg 08/18/19 09:00 08/18/19 08:53 Toprol Xl PO 50 mg DAILY ANASTASIA Administration Nifedipine 60 mg 08/18/19 09:00 08/18/19 08:53 Procardia Xl PO 60 mg BID ANASTASIA Administration Rivaroxaban 15 mg 08/18/19 09:00 08/18/19 08:54 Xarelto PO 15 mg DAILY ANASTASIA Administration Vitamin E 1,000 units 08/18/19 09:00 08/18/19 08:54 Vitamin E PO 1,000 units DAILY ANASTASIA Administration - Exam General Appearance: awake alert Eye: PERRL, anicteric sclera ENT: no oropharyngeal lesions, moist mucosa Neck: supple, no JVD Heart: RRR, no murmur Respiratory: no wheezes, rales, rhonchi Gastrointestinal: soft, non-tender, non-distended, normal bowel sounds Extremities: no cyanosis, 2+ LE edema Neurological: cranial nerve grossly intact, no focal deficits Psychiatric: normal affect, A&O x 3 Hosp A/P (1) Acute diastolic heart failure Code(s): I50.31 - ACUTE DIASTOLIC (CONGESTIVE) HEART FAILURE Status: Acute (2) Acute respiratory failure with hypoxia Code(s): J96.01 - ACUTE RESPIRATORY FAILURE WITH HYPOXIA Status: Resolved (3) Paroxysmal atrial fibrillation Code(s): I48.0 - PAROXYSMAL ATRIAL FIBRILLATION Status: Chronic (4) Type 2 diabetes mellitus Status: Chronic Qualifiers: Diabetes mellitus keno terminal operator insulin use: with keno terminal operator use Diabetes mellitus complication status: with kidney complications Diabetes mellitus complication detail: with chronic kidney disease Chronic kidney disease stage : stage 3 (moderate) Qualified Code(s): E11.22 - Type 2 diabetes mellitus with diabetic chronic kidney disease; N18.3 - Chronic kidney disease, stage 3 ( moderate); Z79.4 - detention (current) use of insulin (5) CKD (chronic kidney disease), stage III Code(s): N18.3 - CHRONIC KIDNEY DISEASE, STAGE 3 (MODERATE) Status: Chronic (6) Dyslipidemia Code(s): E78.5 - HYPERLIPIDEMIA, UNSPECIFIED Status: Chronic (7) GERD (gastroesophageal reflux disease) Code(s): K21.9 - GASTRO-ESOPHAGEAL REFLUX DISEASE WITHOUT ESOPHAGITIS Status: Chronic Qualifiers: Esophagitis presence: esophagitis presence not specified Qualified Code(s) : K21.9 - Gastro-esophageal reflux disease without esophagitis (8) HTN (hypertension) Code(s): I10 - ESSENTIAL (PRIMARY) HYPERTENSION Status: Chronic Qualifiers: Hypertension type: essential hypertension Qualified Code(s): I10 - Essential (primary) hypertension (9) Morbid obesity with BMI of 50.0-59.9, adult Code(s): E66.01 - MORBID (SEVERE) OBESITY DUE TO EXCESS CALORIES; Z68.43 - BODY MASS INDEX (BMI) 50.0-59.9, ADULT Status: Chronic - Plan is on lasix 40mg iv at 6am and 2pm continue home meds of toprol xl, procardia xl bid, isordil, hydralazine 100mg tid, xarelto, asp, lipitor htn is a bit uncontrolled, unclear if she recieved all her home meds this am, if she did we will wait for her BP to titrate down if needed nitropaste 1/2 inch q6hrly prn or clonidine 0.1 mg tid prn can be used cardiology consultation with pt is morbidly obese with bmi of 58 and has been slowly beginning to amb at [facility] continue lantus at current doses watch for renal function with iv diuresis prognosis guarded last ef was 60% with diastolic dysfunction in jul 2019. PT/OT to mobilize early, oob to chair, elizabeth hose to lower extre, i.spirometry
[2019-08-18 17:48] LABS: Hemoglobin 10.6 g/dL (12.0-16.0); Platelet Count 231 thou/uL (130-400)
[2019-08-18] MEDS: Atorvastatin Calcium 40 MG TAB PO SCH (20:45)
[2019-08-18] MEDS: Insulin Glargine 15 UNITS in Pre-Filled Syringe 1 EACH SC SCH (20:45)
[2019-08-18] MEDS: cloNIDine 0.1 MG TAB PO SCH (20:46)
[2019-08-18] MEDS ORDERED: diphenhydrAMINE 25 MG CAP PO SCH (21:15)
--- NOTE | 2019-08-19 01:24 | CON ---
DATE OF CONSULTATION: HISTORY OF PRESENT ILLNESS: The patient is a 69-year-old woman with a history of coronary artery disease and congestive heart failure, who presented with increasing dyspnea. The patient has a history of chronic diastolic heart failure. The patient has previously undergone a cardiac evaluation including cardiac catheterization. She underwent a cardiac catheterization in September 2017. She was examined and found to have 50% proximal RCA lesion. The patient has subsequently been admitted on several occasions with dyspnea. She was most recently admitted with paroxysmal atrial fibrillation. The patient was started on Xarelto. The patient presented once again with increasing dyspnea and lower extremity swelling. PAST MEDICAL HISTORY: 1. Congestive heart failure. 2. Coronary artery disease. 3. Hypertension. 4. Diabetes mellitus. 5. Renal insufficiency. 6. Sleep apnea. PAST SURGICAL HISTORY: She has had hysterectomy, ankle surgery. SOCIAL HISTORY: Nonsmoker. ALLERGIES: SULFA, COREG, AND PENICILLIN. REVIEW OF SYSTEMS: Ten-point system otherwise unremarkable. PHYSICAL EXAMINATION: GENERAL: Morbidly obese woman, in no acute distress. VITAL SIGNS: Blood pressure of 181/75. NECK: No jugular venous distention. LUNGS: Clear to auscultation. HEART: Regular rate and rhythm. Normal S1, S2. No murmurs. ABDOMEN: Markedly distended. EXTREMITIES: Showed mild bilateral edema. VASCULAR: Radial pulses 2+. LABORATORY DATA: White blood cell count 6.6, hemoglobin 11.2, hematocrit 35.7, platelets 246. Sodium 140, potassium 4.5, chloride 104, bicarbonate 27, BUN 30, creatinine 1.3. BNP was 590. Her EKG revealed sinus bradycardia, otherwise normal ECG. IMPRESSION: 1. Congestive heart failure, secondary to diastolic dysfunction. 2. History of coronary artery disease. 3. Hypertension. 4. Diabetes mellitus. 5. Chronic renal insufficiency. 6. Morbid obesity. This patient presents with mild congestive heart failure. She is being diuresed with IV Lasix. From a cardiac standpoint, she will probably need to be on higher dose of Lasix with considering adding higher dose of Lasix. We will follow this patient with you through her hospitalization. Job ID: [id number]
[2019-08-19] MEDS: Furosemide 40 MG/4 ML VIAL SLOW IVP SCH ×2 (07:59→14:58)
[2019-08-19] MEDS: Aspirin 81 mg Enteric Coated Tablet PO SCH (08:18)
[2019-08-19] MEDS: Famotidine 20 MG TAB PO SCH ×2 (08:18→20:26)
[2019-08-19] MEDS: hydrALAZINE 25 MG TAB PO SCH ×2 (08:18→20:26)
[2019-08-19] MEDS: Rivaroxaban 15 MG TAB PO SCH (08:19)
[2019-08-19] MEDS: Isosorbide Dinitrate 20 MG TAB PO SCH (08:19)
[2019-08-19] MEDS: Magnesium Oxide 400 MG TAB PO SCH (08:20)
[2019-08-19] MEDS: NIFEdipine XL 60 MG TAB PO SCH ×2 (08:20→20:26)
[2019-08-19] MEDS: cloNIDine 0.1 MG TAB PO SCH ×3 (08:20→20:26)
[2019-08-19] MEDS: Insulin Glargine 30 UNITS in Pre-Filled Syringe 1 EACH SC SCH (08:28)
[2019-08-19] MEDS ORDERED: FLU VACC TS2019-20(65YR UP)/PF 180 MCG/0.5 ML SYRINGE IM ONE (09:00)
[2019-08-19] MEDS: Atorvastatin Calcium 40 MG TAB PO SCH (20:26)
[2019-08-19] MEDS: Insulin Glargine 15 UNITS in Pre-Filled Syringe 1 EACH SC SCH (20:27)
--- NOTE | 2019-08-19 22:41 | PDOC.HOSPP ---
- Subjective Subjective: Feeling some better after some diuresis. - Objective Vital Signs & Weight: Vital Signs (12 hours) Temp Pulse Pulse Pulse Resp BP BP 08/19/19 19:00 97.3 F L 51 L 16 08/19/19 15:55 97.9 F 50 L 15 08/19/19 13:26 56 L 51 L 130/59 L 121/70 08/19/19 11:06 97.5 F L 50 L 18 BP BP Pulse Ox 08/19/19 19:00 163/69 H 97 08/19/19 15:55 136/61 97 08/19/19 13:26 08/19/19 11:06 146/64 H 95 Weight Weight 321 lb 4.8 oz I&O: 08/18/19 08/19/19 08/20/19 06:59 06:59 06:59 Intake Total 540 964 Output Total 950 800 Balance -410 164 Result Diagrams: 08/18/19 17:41 08/20/19 04:19 Additional Labs: Accuchecks 08/19/19 08/19/19 08/19/19 20:24 16:13 11:12 POC Glucose 149 H 119 H 103 08/19/19 05:29 POC Glucose 86 Hospitalist ROS - Medication Medications: Active Medications Generic Name Dose Route Start Last Admin Trade Name Freq PRN Reason Stop Dose Admin Aspirin 81 mg 08/18/19 09:00 08/19/19 08:18 Ecotrin PO 81 mg DAILY ANASTASIA Administration Atorvastatin Calcium 80 mg 08/18/19 21:00 08/19/19 20:26 Lipitor PO 80 mg HS ANASTASIA Administration Clonidine 0.1 mg 08/18/19 21:00 08/19/19 20:26 Catapres PO 0.1 mg TID ANASTASIA Administration Famotidine 20 mg 08/18/19 09:00 08/19/19 20:26 Pepcid PO 20 mg BID ANASTASIA Administration Furosemide 40 mg 08/18/19 06:00 08/19/19 14:58 Lasix SLOW IVP 40 mg 0600,1400 ANASTASIA Administration Hydralazine HCl 10 mg 08/17/19 21:36 08/18/19 05:30 Apresoline SLOW IVP 10 mg Q4H PRN Administration SBP > 180 and HR < 70 Hydralazine HCl 100 mg 08/18/19 09:00 08/19/19 20:26 Apresoline PO 100 mg BID ANASTASIA Administration Insulin Glargine 15 units/ 0.15 mls @ 0 mls/hr 08/18/19 21:00 08/19/19 20:27 Miscellaneous Medication SC 0.15 mls HS ANASTASIA Administration Insulin Glargine 30 units/ 0.3 mls @ 0 mls/hr 08/18/19 09:00 08/19/19 08:28 Miscellaneous Medication SC 0.3 mls QAM ANASTASIA Administration Isosorbide Dinitrate 30 mg 08/18/19 09:00 08/19/19 08:19 Isordil PO 30 mg DAILY ANASTASIA Administration Magnesium Oxide 400 mg 08/18/19 09:00 08/19/19 08:20 Magnesium Oxide PO 400 mg DAILY ANASTASIA Administration Metoprolol Succinate 50 mg 08/18/19 09:00 08/19/19 08:19 Toprol Xl PO 50 mg DAILY ANASTASIA Administration Nifedipine 60 mg 08/18/19 09:00 08/19/19 20:26 Procardia Xl PO 60 mg BID ANASTASIA Administration Rivaroxaban 15 mg 08/18/19 09:00 08/19/19 08:19 Xarelto PO 15 mg DAILY ANASTASIA Administration Vitamin E 1,000 units 08/18/19 09:00 08/19/19 08:25 Vitamin E PO 1,000 units DAILY ANASTASIA Administration - Exam General Appearance: NAD, awake alert General - other findings: Extremely obese. Heart: RRR, no murmur, no gallops, no rubs, normal peripheral pulses Respiratory: CTAB, no wheezes, no rales, no ronchi, normal chest expansion, no tachypnea, normal percussion Gastrointestinal: soft, non-tender, non-distended, normal bowel sounds, no palpable masses, no hepatomegaly, no splenomegaly, no bruit Extremities: 2+ LE edema Musculoskeletal: normal tone Psychiatric: normal affect, normal behavior, A&O x 3 Hosp A/P (1) Acute on chronic diastolic (congestive) heart failure Code(s): I50.33 - ACUTE ON CHRONIC DIASTOLIC (CONGESTIVE) HEART FAILURE Status : Acute (2) CKD (chronic kidney disease), stage III Code(s): N18.3 - CHRONIC KIDNEY DISEASE, STAGE 3 (MODERATE) Status: Chronic (3) Diabetes type 2, controlled Code(s): E11.9 - TYPE 2 DIABETES MELLITUS WITHOUT COMPLICATIONS Status: Chronic (4) Dyslipidemia Code(s): E78.5 - HYPERLIPIDEMIA, UNSPECIFIED Status: Chronic (5) GERD (gastroesophageal reflux disease) Code(s): K21.9 - GASTRO-ESOPHAGEAL REFLUX DISEASE WITHOUT ESOPHAGITIS Status: Chronic Qualifiers: Esophagitis presence: esophagitis presence not specified Qualified Code(s) : K21.9 - Gastro-esophageal reflux disease without esophagitis (6) HTN (hypertension) Code(s): I10 - ESSENTIAL (PRIMARY) HYPERTENSION Status: Chronic Qualifiers: Hypertension type: essential hypertension Qualified Code(s): I10 - Essential (primary) hypertension (7) Morbid obesity with BMI of 50.0-59.9, adult Code(s): E66.01 - MORBID (SEVERE) OBESITY DUE TO EXCESS CALORIES; Z68.43 - BODY MASS INDEX (BMI) 50.0-59.9, ADULT Status: Chronic (8) Paroxysmal atrial fibrillation Code(s): I48.0 - PAROXYSMAL ATRIAL FIBRILLATION Status: Chronic - Plan Continue with diuresis. Cards following. Monitor renal function, lytes.
[2019-08-20 05:20] LABS: Anion Gap 10 mmol/L (10-20); BUN (Urea Nitrogen) 36 mg/dL (9.8-20.1); Calc. Creatinine Clearance 77 mL/min (70-130); Calcium 8.4 mg/dL (7.8-10.44); Carbon Dioxide 34 mmol/L (23-31); Chloride 104 mmol/L (98-107); Estimated GFR-MDRD 40; Potassium 4.3 mmol/L (3.5-5.1); Sodium 144 mmol/L (136-145)
[2019-08-20 05:23] LABS: Glucose 45 mg/dL (83-110)
[2019-08-20] MEDS: Furosemide 40 MG/4 ML VIAL SLOW IVP SCH ×2 (05:42→14:58)
[2019-08-20] MEDS: Insulin Glargine 30 UNITS in Pre-Filled Syringe 1 EACH SC SCH (09:27)
[2019-08-20] MEDS: Aspirin 81 mg Enteric Coated Tablet PO SCH (09:46)
[2019-08-20] MEDS: Magnesium Oxide 400 MG TAB PO SCH (09:46)
[2019-08-20] MEDS: Famotidine 20 MG TAB PO SCH ×2 (09:46→20:24)
[2019-08-20] MEDS: Rivaroxaban 15 MG TAB PO SCH (09:46)
[2019-08-20] MEDS: NIFEdipine XL 60 MG TAB PO SCH ×2 (10:54→20:24)
[2019-08-20] MEDS: cloNIDine 0.1 MG TAB PO SCH ×3 (10:55→20:23)
[2019-08-20] MEDS: Isosorbide Dinitrate 20 MG TAB PO SCH (10:55)
[2019-08-20] MEDS: hydrALAZINE 25 MG TAB PO SCH ×2 (10:55→20:23)
[2019-08-20] MEDS: Atorvastatin Calcium 40 MG TAB PO SCH (20:24)
[2019-08-20] MEDS: Insulin Glargine 15 UNITS in Pre-Filled Syringe 1 EACH SC SCH (20:24)
--- NOTE | 2019-08-20 21:04 | PDOC.HOSPP ---
- Subjective Subjective: Continues to feel better. - Objective Vital Signs & Weight: Vital Signs (12 hours) Temp Pulse Pulse Resp BP BP BP 08/20/19 17:30 53 H 129/58 L 08/20/19 15:07 53 L 157/68 H 08/20/19 11:18 98 F 53 L 19 138/65 08/20/19 10:55 51 L 08/20/19 10:54 51 L 08/20/19 10:24 08/20/19 09:15 97.8 F 51 L 20 136/61 Pulse Ox 08/20/19 17:30 08/20/19 15:07 08/20/19 11:18 97 08/20/19 10:55 08/20/19 10:54 08/20/19 10:24 95 08/20/19 09:15 95 Weight Weight 319 lb 9.6 oz I&O: 08/19/19 08/20/19 08/21/19 06:59 06:59 06:59 Intake Total 540 1264 960 Output Total 950 1200 1450 Balance -410 64 -490 Result Diagrams: 08/18/19 17:41 08/20/19 04:19 Additional Labs: Accuchecks 08/20/19 08/20/19 08/20/19 16:36 05:59 05:29 POC Glucose 75 85 47 L* Hospitalist ROS - Medication Medications: Active Medications Generic Name Dose Route Start Last Admin Trade Name Freq PRN Reason Stop Dose Admin Aspirin 81 mg 08/18/19 09:00 08/20/19 09:46 Ecotrin PO 81 mg DAILY ANASTASIA Administration Atorvastatin Calcium 80 mg 08/18/19 21:00 08/20/19 20:24 Lipitor PO 80 mg HS ANASTASIA Administration Clonidine 0.1 mg 08/18/19 21:00 08/20/19 20:23 Catapres PO 0.1 mg TID ANASTASIA Administration Famotidine 20 mg 08/18/19 09:00 08/20/19 20:24 Pepcid PO 20 mg BID ANASTASIA Administration Furosemide 40 mg 08/18/19 06:00 08/20/19 14:58 Lasix SLOW IVP 40 mg 0600,1400 ANASTASIA Administration Hydralazine HCl 10 mg 08/17/19 21:36 08/18/19 05:30 Apresoline SLOW IVP 10 mg Q4H PRN Administration SBP > 180 and HR < 70 Hydralazine HCl 100 mg 08/18/19 09:00 08/20/19 20:23 Apresoline PO 100 mg BID ANASTASIA Administration Insulin Glargine 15 units/ 0.15 mls @ 0 mls/hr 08/18/19 21:00 08/20/19 20:24 Miscellaneous Medication SC Not Given HS ANASTASIA Insulin Glargine 30 units/ 0.3 mls @ 0 mls/hr 08/18/19 09:00 08/20/19 09:27 Miscellaneous Medication SC 0.3 mls QAM ANASTASIA Administration Isosorbide Dinitrate 30 mg 08/18/19 09:00 08/20/19 10:55 Isordil PO 30 mg DAILY ANASTASIA Administration Magnesium Oxide 400 mg 08/18/19 09:00 08/20/19 09:46 Magnesium Oxide PO 400 mg DAILY NAASTASIA Administration Nifedipine 60 mg 08/18/19 09:00 08/20/19 20:24 Procardia Xl PO 60 mg BID ANASTASIA Administration Rivaroxaban 15 mg 08/18/19 09:00 08/20/19 09:46 Xarelto PO 15 mg DAILY ANASTASIA Administration Vitamin E 1,000 units 08/18/19 09:00 08/20/19 09:27 Vitamin E PO 1,000 units DAILY ANASTASIA Administration - Exam General Appearance: NAD, awake alert General - other findings: Morbidly obese. Heart: RRR, no murmur, no gallops, no rubs, normal peripheral pulses Respiratory: CTAB, no wheezes, no rales, no ronchi, normal chest expansion, no tachypnea, normal percussion Gastrointestinal: soft, non-tender, non-distended, normal bowel sounds, no palpable masses, no hepatomegaly, no splenomegaly, no bruit Extremities: 1+ LE edema Psychiatric: normal affect, normal behavior, A&O x 3 Hosp A/P (1) Acute on chronic diastolic (congestive) heart failure Code(s): I50.33 - ACUTE ON CHRONIC DIASTOLIC (CONGESTIVE) HEART FAILURE Status : Acute (2) CKD (chronic kidney disease), stage III Code(s): N18.3 - CHRONIC KIDNEY DISEASE, STAGE 3 (MODERATE) Status: Chronic (3) Diabetes type 2, controlled Code(s): E11.9 - TYPE 2 DIABETES MELLITUS WITHOUT COMPLICATIONS Status: Chronic (4) Dyslipidemia Code(s): E78.5 - HYPERLIPIDEMIA, UNSPECIFIED Status: Chronic (5) GERD (gastroesophageal reflux disease) Code(s): K21.9 - GASTRO-ESOPHAGEAL REFLUX DISEASE WITHOUT ESOPHAGITIS Status: Chronic Qualifiers: Esophagitis presence: esophagitis presence not specified Qualified Code(s) : K21.9 - Gastro-esophageal reflux disease without esophagitis (6) HTN (hypertension) Code(s): I10 - ESSENTIAL (PRIMARY) HYPERTENSION Status: Chronic Qualifiers: Hypertension type: essential hypertension Qualified Code(s): I10 - Essential (primary) hypertension (7) Morbid obesity with BMI of 50.0-59.9, adult Code(s): E66.01 - MORBID (SEVERE) OBESITY DUE TO EXCESS CALORIES; Z68.43 - BODY MASS INDEX (BMI) 50.0-59.9, ADULT Status: Chronic (8) Paroxysmal atrial fibrillation Code(s): I48.0 - PAROXYSMAL ATRIAL FIBRILLATION Status: Chronic (9) Bradycardia Code(s): R00.1 - BRADYCARDIA, UNSPECIFIED Status: Acute (10) Hypoglycemia associated with type 2 diabetes mellitus Code(s): E11.649 - TYPE 2 DIABETES MELLITUS WITH HYPOGLYCEMIA WITHOUT COMA Status: Resolved - Plan Continue with diuresis. Cards following. Monitor renal function, lytes. Decreased Metoprolol in light of the bradycardia in the 40's. DC night time sliding scale.
[2019-08-21] MEDS: Furosemide 40 MG/4 ML VIAL SLOW IVP SCH ×2 (05:49→14:22)
[2019-08-21] MEDS: Isosorbide Dinitrate 20 MG TAB PO SCH (08:25)
[2019-08-21] MEDS: Famotidine 20 MG TAB PO SCH ×2 (08:26→20:35)
[2019-08-21] MEDS: NIFEdipine XL 60 MG TAB PO SCH ×2 (08:27→20:35)
[2019-08-21] MEDS: Aspirin 81 mg Enteric Coated Tablet PO SCH (08:28)
[2019-08-21] MEDS: Rivaroxaban 15 MG TAB PO SCH (08:28)
[2019-08-21] MEDS: cloNIDine 0.1 MG TAB PO SCH ×3 (08:28→20:35)
[2019-08-21 09:01] LABS: Anion Gap 11 mmol/L (10-20); BUN (Urea Nitrogen) 34 mg/dL (9.8-20.1); Calc. Creatinine Clearance 77 mL/min (70-130); Calcium 8.5 mg/dL (7.8-10.44); Carbon Dioxide 33 mmol/L (23-31); Chloride 101 mmol/L (98-107); Estimated GFR-MDRD 40; Glucose 105 mg/dL (83-110); Potassium 4.5 mmol/L (3.5-5.1); Sodium 140 mmol/L (136-145)
[2019-08-21] MEDS: Magnesium Oxide 400 MG TAB PO SCH (09:52)
[2019-08-21] MEDS: Insulin Glargine 30 UNITS in Pre-Filled Syringe 1 EACH SC SCH (09:57)
[2019-08-21] MEDS: hydrALAZINE 25 MG TAB PO SCH ×2 (11:03→20:34)
--- NOTE | 2019-08-21 20:14 | PDOC.HOSPP ---
- Subjective Subjective: She feels better. Breathing better. Eager to go. - Objective Vital Signs & Weight: Vital Signs (12 hours) Temp Pulse Pulse Resp BP BP BP 08/21/19 18:55 97.4 F L 51 L 16 08/21/19 16:00 97.7 F 52 L 16 08/21/19 14:38 107 H 171/74 H 08/21/19 14:22 142/65 H 08/21/19 11:02 98.2 F 52 L 18 147/66 H 08/21/19 08:28 134/61 BP Pulse Ox Pulse Ox 08/21/19 18:55 128/61 97 08/21/19 16:00 156/67 H 97 08/21/19 14:38 53 L 08/21/19 14:22 08/21/19 11:02 98 08/21/19 08:28 Weight Weight 319 lb 9.6 oz I&O: 08/20/19 08/21/19 08/22/19 06:59 06:59 06:59 Intake Total 1264 1260 1200 Output Total 1200 1900 1550 Balance 64 -640 -350 Result Diagrams: 08/18/19 17:41 08/21/19 08:31 Additional Labs: Accuchecks 08/21/19 08/21/19 08/21/19 16:06 10:00 06:34 POC Glucose 135 H 141 H 65 L 08/20/19 20:13 POC Glucose 139 H Hospitalist ROS - Medication Medications: Active Medications Generic Name Dose Route Start Last Admin Trade Name Freq PRN Reason Stop Dose Admin Acetaminophen 1,000 mg 08/17/19 21:36 08/21/19 11:03 Tylenol PO 1,000 mg Q6H PRN Administration Mild Pain (1-3) Aspirin 81 mg 08/18/19 09:00 08/21/19 08:28 Ecotrin PO 81 mg DAILY ANASTASIA Administration Atorvastatin Calcium 80 mg 08/18/19 21:00 08/20/19 20:24 Lipitor PO 80 mg HS ANASTASIA Administration Clonidine 0.1 mg 08/18/19 21:00 08/21/19 14:22 Catapres PO 0.1 mg TID ANASTASIA Administration Famotidine 20 mg 08/18/19 09:00 08/21/19 08:26 Pepcid PO 20 mg BID ANASTASIA Administration Furosemide 40 mg 08/18/19 06:00 08/21/19 14:22 Lasix SLOW IVP 40 mg 0600,1400 ANASTASIA Administration Hydralazine HCl 10 mg 08/17/19 21:36 08/18/19 05:30 Apresoline SLOW IVP 10 mg Q4H PRN Administration SBP > 180 and HR < 70 Hydralazine HCl 100 mg 08/18/19 09:00 08/21/19 11:03 Apresoline PO 100 mg BID ANASTASIA Administration Insulin Glargine 15 units/ 0.15 mls @ 0 mls/hr 08/18/19 21:00 08/20/19 20:24 Miscellaneous Medication SC Not Given HS ANASTASIA Insulin Glargine 30 units/ 0.3 mls @ 0 mls/hr 08/18/19 09:00 08/21/19 09:57 Miscellaneous Medication SC 0.3 mls QAM ANASTASIA Administration Isosorbide Dinitrate 30 mg 08/18/19 09:00 08/21/19 08:25 Isordil PO 30 mg DAILY ANASTASIA Administration Magnesium Oxide 400 mg 08/18/19 09:00 08/21/19 09:52 Magnesium Oxide PO 400 mg DAILY ANASTASIA Administration Metoprolol Succinate 25 mg 08/21/19 09:00 08/21/19 08:26 Toprol Xl PO 25 mg DAILY ANASTASIA Administration Nifedipine 60 mg 08/18/19 09:00 08/21/19 08:27 Procardia Xl PO 60 mg BID ANASTASIA Administration Rivaroxaban 15 mg 08/18/19 09:00 08/21/19 08:28 Xarelto PO 15 mg DAILY ANASTASIA Administration Vitamin E 1,000 units 08/18/19 09:00 08/21/19 08:28 Vitamin E PO 1,000 units DAILY ANASTASIA Administration - Exam General Appearance: NAD, awake alert General - other findings: Morbidly obese. Heart: RRR, no murmur, no gallops, no rubs, normal peripheral pulses Respiratory: CTAB, no wheezes, no rales, no ronchi, normal chest expansion, no tachypnea, normal percussion Gastrointestinal: soft, non-tender, non-distended, normal bowel sounds, no palpable masses, no hepatomegaly, no splenomegaly, no bruit Extremities: 1+ LE edema Skin: normal turgor Musculoskeletal: normal tone Psychiatric: normal affect, normal behavior, A&O x 3 Hosp A/P (1) Acute on chronic diastolic (congestive) heart failure Code(s): I50.33 - ACUTE ON CHRONIC DIASTOLIC (CONGESTIVE) HEART FAILURE Status : Acute (2) CKD (chronic kidney disease), stage III Code(s): N18.3 - CHRONIC KIDNEY DISEASE, STAGE 3 (MODERATE) Status: Chronic (3) Diabetes type 2, controlled Code(s): E11.9 - TYPE 2 DIABETES MELLITUS WITHOUT COMPLICATIONS Status: Chronic (4) Dyslipidemia Code(s): E78.5 - HYPERLIPIDEMIA, UNSPECIFIED Status: Chronic (5) GERD (gastroesophageal reflux disease) Code(s): K21.9 - GASTRO-ESOPHAGEAL REFLUX DISEASE WITHOUT ESOPHAGITIS Status: Chronic Qualifiers: Esophagitis presence: esophagitis presence not specified Qualified Code(s) : K21.9 - Gastro-esophageal reflux disease without esophagitis (6) HTN (hypertension) Code(s): I10 - ESSENTIAL (PRIMARY) HYPERTENSION Status: Chronic Qualifiers: Hypertension type: essential hypertension Qualified Code(s): I10 - Essential (primary) hypertension (7) Morbid obesity with BMI of 50.0-59.9, adult Code(s): E66.01 - MORBID (SEVERE) OBESITY DUE TO EXCESS CALORIES; Z68.43 - BODY MASS INDEX (BMI) 50.0-59.9, ADULT Status: Chronic (8) Paroxysmal atrial fibrillation Code(s): I48.0 - PAROXYSMAL ATRIAL FIBRILLATION Status: Chronic (9) Bradycardia Code(s): R00.1 - BRADYCARDIA, UNSPECIFIED Status: Acute (10) Hypoglycemia associated with type 2 diabetes mellitus Code(s): E11.649 - TYPE 2 DIABETES MELLITUS WITH HYPOGLYCEMIA WITHOUT COMA Status: Resolved - Plan Diursed. Feeling better. Discussed with Dr. Montemayor. She appears to be stable and ready for discharge. She was denied by insurance to go back to the [place] under skilled. Called [phone] to appeal using ref number [id number]. Was told i would get a call back, but did not by the end of the day. If not approved, will need to go home with HH. DC night time sliding scale.
[2019-08-21] MEDS: Atorvastatin Calcium 40 MG TAB PO SCH (20:35)
[2019-08-21] MEDS: Insulin Glargine 15 UNITS in Pre-Filled Syringe 1 EACH SC SCH (20:36)
[2019-08-22 05:15] LABS: Anion Gap 13 mmol/L (10-20); BUN (Urea Nitrogen) 35 mg/dL (9.8-20.1); Calc. Creatinine Clearance 74 mL/min (70-130); Calcium 8.6 mg/dL (7.8-10.44); Carbon Dioxide 30 mmol/L (23-31); Chloride 102 mmol/L (98-107); Estimated GFR-MDRD 38; Glucose 118 mg/dL (83-110); Sodium 140 mmol/L (136-145)
[2019-08-22] MEDS: Furosemide 40 MG/4 ML VIAL SLOW IVP SCH ×2 (05:31→14:55)
[2019-08-22] MEDS: Magnesium Oxide 400 MG TAB PO SCH (08:23)
[2019-08-22] MEDS: Aspirin 81 mg Enteric Coated Tablet PO SCH (08:23)
[2019-08-22] MEDS: hydrALAZINE 25 MG TAB PO SCH (08:23)
[2019-08-22] MEDS: cloNIDine 0.1 MG TAB PO SCH ×2 (08:23→14:55)
[2019-08-22] MEDS: Rivaroxaban 15 MG TAB PO SCH (08:23)
[2019-08-22] MEDS: Famotidine 20 MG TAB PO SCH (08:23)
[2019-08-22] MEDS: Isosorbide Dinitrate 20 MG TAB PO SCH (08:24)
[2019-08-22] MEDS: NIFEdipine XL 60 MG TAB PO SCH (08:24)
[2019-08-22] MEDS: Insulin Glargine 30 UNITS in Pre-Filled Syringe 1 EACH SC SCH (08:46)
--- NOTE | 2019-08-22 15:44 | EKG ---
Test Reason : Blood Pressure : / mmHG Vent. Rate : 058 BPM Atrial Rate : 058 BPM P-R Int : 170 ms QRS Dur : 084 ms QT Int : 428 ms P-R-T Axes : 056 048 054 degrees QTc Int : 420 ms Sinus bradycardia Otherwise normal ECG Confirmed by MEENA VOGEL ([id number]), news video editor EBENEZER ANTONY ([id number]) on 08/22/2019 3:44:10 PM Referred By: Confirmed By:MEENA Urbina
--- NOTE | 2019-08-22 15:47 | PDOC.CPN ---
- Subjective Date: 08/22/19 Time: 15:52 Interval history: The pt seen and examined. No overnight events. No cardiac complaints. - Objective Allergies/Adverse Reactions: Allergies Allergy/AdvReac Type Severity Reaction Status Date / Time carvedilol [From Coreg] Allergy Intermediate HEART RATE Verified 08/18/19 12:11 TOO LOW Penicillins Allergy Intermediate ITCHING Verified 08/18/19 12:11 Sulfa (Sulfonamide Allergy Intermediate ITCHING Verified 08/18/19 12:11 Antibiotics) Visit Medications: Current Medications Acetaminophen (Tylenol) 1,000 mg PO Q6H PRN PRN Reason: Mild Pain (1-3) Last Admin: 08/21/19 11:03 Dose: 1,000 mg Albuterol Sulfate (Proventil Hfa) 2 puff INH Q6HR PRN PRN Reason: SOB &/or Wheezing Aspirin (Ecotrin) 81 mg PO DAILY [facility] Last Admin: 08/22/19 08:23 Dose: 81 mg Atorvastatin Calcium (Lipitor) 80 mg PO [facility] Last Admin: 08/21/19 20:35 Dose: 80 mg Clonidine (Catapres) 0.1 mg PO TID [facility] Last Admin: 08/22/19 14:55 Dose: 0.1 mg Dextrose/Water (Dextrose 50%) 25 gm SLOW IVP PRN PRN PRN Reason: Hypoglycemia Famotidine (Pepcid) 20 mg PO BID [facility] Last Admin: 08/22/19 08:23 Dose: 20 mg Furosemide (Lasix) 40 mg SLOW IVP 0600,1400 [facility] Last Admin: 08/22/19 14:55 Dose: 40 mg Glucagon (Glucagon) 1 mg IM PRN PRN PRN Reason: Hypoglycemia Hydralazine HCl (Apresoline) 10 mg SLOW IVP Q4H PRN PRN Reason: SBP > 180 and HR < 70 Last Admin: 08/18/19 05:30 Dose: 10 mg Hydralazine HCl (Apresoline) 100 mg PO BID [facility] Last Admin: 08/22/19 08:23 Dose: 100 mg Dextrose/Water (D5w) 1,000 mls @ 0 mls/hr IV .Q0M PRN PRN Reason: Hypoglycemia Insulin Glargine 15 units/ (Miscellaneous Medication) 0.15 mls @ 0 mls/hr SC [facility] Last Admin: 08/21/19 20:36 Dose: Not Given Insulin Glargine 30 units/ (Miscellaneous Medication) 0.3 mls @ 0 mls/hr SC QAM [facility] Last Admin: 08/22/19 08:46 Dose: 0.3 mls Insulin Human Lispro (Humalog) 0 units SC .MODERATE SLIDING SC PRN PRN Reason: Moderate Correctional Scale Isosorbide Dinitrate (Isordil) 30 mg PO DAILY [facility] Last Admin: 08/22/19 08:24 Dose: 30 mg Magnesium Oxide (Magnesium Oxide) 400 mg PO DAILY [facility] Last Admin: 08/22/19 08:23 Dose: 400 mg Metoprolol Succinate (Toprol Xl) 25 mg PO DAILY [facility] Last Admin: 08/22/19 08:23 Dose: 25 mg Nifedipine (Procardia Xl) 60 mg PO BID [facility] Last Admin: 08/22/19 08:24 Dose: 60 mg Ondansetron HCl (Zofran Odt) 4 mg PO Q6H PRN PRN Reason: Nausea/Vomiting Ondansetron HCl (Zofran) 4 mg IVP Q6H PRN PRN Reason: Nausea/Vomiting Rivaroxaban (Xarelto) 15 mg PO DAILY [facility] Last Admin: 08/22/19 08:23 Dose: 15 mg Vitamin E (Vitamin E) 1,000 units PO DAILY [facility] Last Admin: 08/22/19 08:23 Dose: 1,000 units Vital Signs & Weight: Vital Signs Temp Pulse Resp BP BP BP BP 08/22/19 14:55 98 F 53 L 18 129/61 129/61 08/22/19 14:23 138/61 128/63 08/22/19 11:08 98.7 F 55 L 18 126/61 08/22/19 07:03 97.6 F 51 L 18 BP Pulse Ox 08/22/19 14:55 95 08/22/19 14:23 08/22/19 11:08 98 08/22/19 07:03 179/73 H 95 Weight 319 lb 9.6 oz - Physical Exam General: alert & oriented x3 HEENT: mucus membranes moist Neck: supple neck Cardiac: regular rate and rhythm, S1/S2 Lungs: decreased breath sounds Extremities: other: (3+ pitting BLE edema) - Labs Result Diagrams: 08/18/19 17:41 08/22/19 03:22 - Telemetry Sinus rhythms and dysrhythmias: other (SB with HR 50-60s) - Assessment/Plan Assessment/Plan: 1. Acute on chronic Diastolic HF - still 2-3 + pitting BLE edema, but stable with Lasix 40mg IV BID and Metoprolol 25mg qd; Not on RIMMA/ARB due to hx of CKD 2. Prox Afib - remains in SB and SR; on Metoprolol and Xarelto; she has been on EVR from Dr Hilton's office and tele 3. HTN - stable 4. CKD stage 3 5. HLD 6. DM type 2 7. Home O2 2LNC MAR reviewed * Echo in 07/2019 with EF 50-55%, mod dilated LA, and mild MR and TR * waiting for CT approval or going home with HH * Dr Hilton's pt
[2019-08-22 19:16] VITALS: BP 129/61; TEMP 97.5
--- NOTE | 2019-08-23 21:40 | DIS ---
DATE OF ADMISSION: 08/17/2019 DATE OF DISCHARGE: 08/22/2019 HOSPITAL COURSE: Ms. Orozco is a 69-year-old female with history of heart failure with preserved ejection fraction. She presented to the hospital with shortness of breath and was found to be hypovolemic. She was admitted to the telemetry floor for decompensated heart failure and was diuresed well, being supplemented with oxygen. On admission, her systolic blood pressure was also greater than 200. During her inpatient stay, blood pressure was better controlled with her own medications and her hypovolemic status improved. Shortness of breath resolved and on the day of discharge, she was at baseline breathing and was ambulating without shortness of breath. She was discharged hemodynamically stable with baseline oxygen requirements. We attempted to discharge her back to our alf with intermediate, but her insurance did not approve. The patient was asked regarding her medical needs. She claimed to self-inject insulin without any issues, and it was deemed that home with home health care would suffice to aid the patient with her medical needs. On the day of discharge, vital signs were unremarkable. She was saturating 98% on 2 L nasal cannula, which is her baseline. PHYSICAL EXAMINATION: GENERAL: She is morbidly obese, no apparent distress, awake and alert. HEART: Regular rhythm and rate. No murmur. No gallops. No rubs. Normal peripheral pulses. RESPIRATORY: Mild bibasilar rales, improved compared to admission. No rhonchi. Normal chest expansion. No tachypnea. GI: Soft, nontender, nondistended. Normal bowel sounds. EXTREMITIES: Bilateral lower extremity pitting edema up to knee level, improved compared to admission. PSYCHIATRIC: Normal affect. Normal behavior. Alert and oriented x3. ASSESSMENT AND PLAN: Ms. Orozco is a 69-year-old female, who presented with decompensated heart failure with preserved ejection fraction. The patient was diuresed and improved. On the day of discharge, she was at baseline breathing. She was discharged to home with a supply of Xarelto for her paroxysmal atrial fibrillation. Job ID: [id number]
== END 2019-08-22 22:02 | disposition home health service (06) | DRG 291 ==
LOC: ERS 17:03 → ERHOLD 20:11 → OBSVTOIN 21:36 → 2NO 08-18 12:01
PROVIDERS: ADMIT Family Medicine; ATTEND Family Medicine
DX: I13.0 Hypertensive heart and chronic kidney disease with heart failure and stage 1 through stage 4 chronic kidney disease, or unspecified chronic kidney disease (principal); I50.33 Acute on chronic diastolic (congestive) heart failure; J96.21 Acute and chronic respiratory failure with hypoxia; Z68.43 Body mass index [BMI] 50.0-59.9, adult; I48.0 Paroxysmal atrial fibrillation; N18.3 Chronic kidney disease, stage 3 (moderate); E66.01 Morbid (severe) obesity due to excess calories; E78.5 Hyperlipidemia, unspecified; G47.33 Obstructive sleep apnea (adult) (pediatric); E11.319 Type 2 diabetes mellitus with unspecified diabetic retinopathy without macular edema; E11.22 Type 2 diabetes mellitus with diabetic chronic kidney disease; I25.10 Atherosclerotic heart disease of native coronary artery without angina pectoris; E11.649 Type 2 diabetes mellitus with hypoglycemia without coma; R00.1 Bradycardia, unspecified; Z99.81 Dependence on supplemental oxygen; Z90.710 Acquired absence of both cervix and uterus; Z79.899 Other long term (current) drug therapy; Z79.4 Long term (current) use of insulin; Z79.01 Long term (current) use of anticoagulants; Z88.0 Allergy status to penicillin; Z88.2 Allergy status to sulfonamides
CPT/HCPCS: 36415; 36416; 71045; 80048; 80053; 83735; 83880; 85007; 85025; 85027; 93005; 93798; 94760; 96374; J0360; J1815; J1940; Q0163

== ENCOUNTER 2019-09-05 23:19 | Inpatient (IN) | payer MEDICARE, MEDICAID ==
--- NOTE | 2019-09-05 23:58 | RAD ---
Chest AP view INDICATION: Shortness of breath COMPARISON: August 17, 2019 FINDINGS: Lungs:There is perihilar interstitial and airspace opacities suspicious for edema. Cardiac silhouette:There is moderate cardiomegaly Pulmonary vasculature:There is moderate pulmonary vascular congestion Pleural spaces:There are small bilateral pleural effusions Upper abdomen:No abnormality seen. Osseous structures: No acute osseous abnormality. Additional findings:There is a new loop recorder overlying the central chest. IMPRESSION: Findings suspicious for CHF.
[2019-09-06 00:19] LABS: #Eosinphils 0.1 thou/uL (0.0-0.7); #Lymphocytes 0.7 thou/uL (1.20-3.40); #Monocytes 0.6 thou/uL (0.11-0.59); #Neutrophils 7.3 thou/uL (1.40-6.50); %Basophils 0.3 % (0.0-1.0); %Lymphocytes 7.7 % (21.0-51.0); %Monocytes 7.3 % (0.0-10.0); %Neutrophils 83.8 % (42.0-75.0); Hemoglobin 10.4 g/dL (12.0-16.0); Mean Corpuscular HGB CONC 30.4 g/dL (32.0-36.0); Mean Corpuscular Volume 98.8 fL (78.0-98.0); Mean Platelet Volume 7.7 fL (7.4-10.4); Platelet Count 247 thou/uL (130-400); RBC Distribution Width 15.1 % (11.5-14.5); Red Blood Cell (RBC) Count 3.46 mill/uL (4.20-5.40); White Blood Cell (WBC) Count 8.7 thou/uL (4.8-10.8)
[2019-09-06 00:41] LABS: ALT (SGPT) 46 U/L (8-55); AST (SGOT) 35 U/L (5-34); Albumin 3.8 g/dL (3.4-4.8); Alkaline Phosphatase 194 U/L (40-110); Anion Gap 13 mmol/L (10-20); BUN (Urea Nitrogen) 28 mg/dL (9.8-20.1); Bilirubin, Total 0.7 mg/dL (0.2-1.2); Calc. Creatinine Clearance 0 mL/min (70-130); Calcium 9.1 mg/dL (7.8-10.44); Carbon Dioxide 33 mmol/L (23-31); Chloride 101 mmol/L (98-107); Estimated GFR-MDRD 42; Globulin 3.3 g/dL (2.4-3.5); Glucose 310 mg/dL (83-110); Protein, Total 7.1 g/dL (6.0-8.3); Sodium 142 mmol/L (136-145)
[2019-09-06] MEDS ORDERED: Furosemide 40 MG/4 ML VIAL ONE (01:06)
[2019-09-06 03:57] LABS: Troponin I Less than 0.010 ng/mL (< 0.028)
[2019-09-06] MEDS ORDERED: hydrALAZINE 20 MG/ML VIAL SLOW IVP PRN (05:41)
[2019-09-06] MEDS ORDERED: Isosorbide Mononitrate (ER) 30 MG TAB PO SCH (05:45)
[2019-09-06] MEDS ORDERED: NIFEdipine XL 60 MG TAB PO SCH ×3 (05:45→21:00)
[2019-09-06 06:40] LABS: Anion Gap 14 mmol/L (10-20); BUN (Urea Nitrogen) 28 mg/dL (9.8-20.1); Calc. Creatinine Clearance 0 mL/min (70-130); Calcium 9.1 mg/dL (7.8-10.44); Carbon Dioxide 31 mmol/L (23-31); Chloride 102 mmol/L (98-107); Estimated GFR-MDRD 41; Glucose 285 mg/dL (83-110); Magnesium 2.1 mg/dL (1.6-2.6); Potassium 5.3 mmol/L (3.5-5.1); Sodium 142 mmol/L (136-145)
[2019-09-06 06:41] LABS: Troponin I Less than 0.010 ng/mL (< 0.028)
[2019-09-06] MEDS ORDERED: Labetalol HCl 100 MG/20 ML VIAL SLOW IVP PRN ×2 (10:28→11:19)
[2019-09-06] MEDS ORDERED: NIFEdipine XL 30 MG TAB ONE (10:57)
[2019-09-06 12:12] LABS: Potassium 5.1 mmol/L (3.5-5.1)
[2019-09-06] MEDS ORDERED: Senokot S 8.6-50 MG TAB PO PRN (16:07)
[2019-09-06] MEDS ORDERED: Azithromycin 500 MG in Sodium Chloride 0.9% 250 ML 250 ML IVPB SCH (17:45)
[2019-09-06] MEDS ORDERED: methylPREDNISolone Sod Succ 40 MG VIAL IVP SCH (17:45)
[2019-09-06] MEDS ORDERED: Furosemide 40 MG/4 ML VIAL SLOW IVP SCH (18:00)
--- NOTE | 2019-09-06 18:28 | RAD ---
Chest AP view INDICATION: Acute hypoxic respiratory failure COMPARISON: September 05, 2019 FINDINGS: Lungs:Persistent bibasilar atelectasis. Scattered perihilar interstitial edema is improved. Cardiac silhouette:Moderate cardiomegaly persists Pulmonary vasculature:Moderate probably vascular congestion is present but less prominent Pleural spaces:Small bilateral pleural effusions persist Upper abdomen:No abnormality seen. Osseous structures: No acute osseous abnormality. Additional findings:Previously seen loop recorder has been removed IMPRESSION: Mild improvement in the central edema pattern. Persistent findings of [id number] CH F.
[2019-09-06 20:12] VITALS: BMI 56.5
[2019-09-06 20:22] LABS: Anion Gap 17 mmol/L (10-20); BUN (Urea Nitrogen) 28 mg/dL (9.8-20.1); Calc. Creatinine Clearance 88 mL/min (70-130); Calcium 9.5 mg/dL (7.8-10.44); Carbon Dioxide 29 mmol/L (23-31); Chloride 102 mmol/L (98-107); Estimated GFR-MDRD 49; Glucose 215 mg/dL (83-110); Magnesium 2.2 mg/dL (1.6-2.6); Potassium 5.3 mmol/L (3.5-5.1); Sodium 143 mmol/L (136-145)
[2019-09-06 20:27] LABS: Troponin I Less than 0.010 ng/mL (< 0.028)
[2019-09-06] MEDS ORDERED: Furosemide 40 MG TAB PO SCH (21:00)
[2019-09-06] MEDS: Timolol 0.5% Ophth Soln 5 ml Bottle R EYE SCH (21:39)
[2019-09-06] MEDS: hydrALAZINE 25 MG TAB PO SCH (21:40)
[2019-09-06] MEDS: Atorvastatin Calcium 40 MG TAB PO SCH (21:40)
[2019-09-06] MEDS ORDERED: Dextrose 5% in Water 1,000 ML IV PRN (21:57)
[2019-09-06] MEDS ORDERED: Dextrose 50% Abboject 50 ML SYRINGE SLOW IVP PRN (21:57)
[2019-09-06] MEDS ORDERED: Insulin Regular 300 UNITS/3 ML VIAL SC PRN (21:57)
--- NOTE | 2019-09-06 21:59 | PDOC.HHP ---
Hospitalist HPI - History of Present Illness shortness of breath History of Present Illness: 69yo F w/ MHx of CHFpEF and multiple recent hospitatlizations for hypoxic respiratory failure due to decompensated heart failure, most recently three weeks ago. She presents from her residential after she had lunch and then developed rapidly progressive shortness of breath. attempted to take albuterol and was adherent to rest of medications as well, but did not improve so was brought to the hospital. ED Course: In the ED, was found to have tachypnia, hypoxia and grossly elevated blood pressure, CXR c/w pulmonary congestion so was treated with nebulizer, diuresis, and antihypertensives. She immediately improved and admitted to telemetry. however, after transfer to the floor, again became tachypnic and converted from sinus to atrial fibrillation with rate of low 100s. Hospitalist ROS - Review of Systems Constitutional: denies: fever, chills, sweats, weakness, malaise, other Respiratory: reports: cough, dry, shortness of breath, SOB with excertion. denies: hemoptysis, pleuritic pain, sputum, wheezing Cardiovascular: reports: orthopnea, paroxysmal noc. dyspnea, edema, light headedness. denies: chest pain, palpitations, other Gastrointestinal: denies: nausea, vomiting, abdominal pain, diarrhea, constipation, melena, hematochezia, other Genitourinary: denies: dysuria, frequency, incontinence, hematuria, retention, other All other systems reviewed; all pertinent +/- noted in HPI/Subj - Medication Medications: Active Medications Generic Name Dose Route Start Last Admin Trade Name Freq PRN Reason Stop Dose Admin Atorvastatin Calcium 80 mg 09/06/19 21:00 09/06/19 21:40 Lipitor PO 80 mg HS ANASTASIA Administration Furosemide 40 mg 09/06/19 21:00 09/06/19 21:41 Lasix PO 40 mg BID ANASTASIA Administration Hydralazine HCl 100 mg 09/06/19 21:00 09/06/19 21:40 Apresoline PO 100 mg BID ANASTASIA Administration Azithromycin 500 mg/ Sodium 250 mls @ 250 mls/hr 09/06/19 17:45 09/06/19 18: 16 Chloride IVPB 250 mls Q24HR ANASTASIA Administration Labetalol HCl 20 mg 09/06/19 11:19 09/06/19 17:51 Normodyne SLOW IVP 20 mg Q4H PRN Administration for SBP > 180 or DBP >11 Nifedipine 60 mg 09/06/19 21:00 09/06/19 21:40 Procardia Xl PO 60 mg BID ANASTASIA Administration Timolol Maleate 1 drop 09/06/19 21:00 09/06/19 21:39 Timoptic 0.5% Ophth Soln R EYE 1 drp BID ANASTASIA Administration Hospitalist History - Past Medical History Cardiac: reports: AFIB, CHF Pulmonary: reports: asthma, hypertension, Other (chronic hypoxic respiratory failure on 2L NC at home; JOSEPHINE, not using CPAP) - Past Surgical History Past Surgical History: reports: Hysterectomy - Family History Family History: reports: diabetes mellitus, hypertension - Social History Smoking Status: Never smoker Alcohol: reports: None Drugs: reports: none Living Situation: Care Home Domestic Violence: Negative Activity level: uses cane/walker - Exam General Appearance: awake alert General - other findings: morbidly obese, in mild distress due to shortness of breath Eye: PERRL Neck: supple, symmetric, no JVD Heart: RRR, no murmur, no gallops, no rubs Respiratory: tachypneic Respiratory - other findings: severely reduced lung sounds throughout, no wheezing, mild inspiratory rale Gastrointestinal: soft, non-tender, non-distended, normal bowel sounds, no palpable masses, no hepatomegaly, no splenomegaly, no bruit Extremities - other findings: b/l pitting edema to knee level Neurological: cranial nerve grossly intact, no focal deficits, no new deficit Psychiatric: normal affect, normal behavior, A&O x 3 Hospitalist Results - Labs Result Diagrams: 09/06/19 00:12 09/06/19 20:00 Lab results: WBC 8.7 thou/uL (4.8-10.8) 09/06/19 00:12 Hgb 10.4 g/dL (12.0-16.0) L 09/06/19 00:12 Hct 34.2 % (36.0-47.0) L 09/06/19 00:12 MCV 98.8 fL (78.0-98.0) H 09/06/19 00:12 Plt Count 247 thou/uL (130-400) 09/06/19 00:12 Neutrophils % 83.8 % (42.0-75.0) H 09/06/19 00:12 Sodium 143 mmol/L (136-145) 09/06/19 20:00 Potassium 5.3 mmol/L (3.5-5.1) H 09/06/19 20:00 Chloride 102 mmol/L (98-107) 09/06/19 20:00 Carbon Dioxide 29 mmol/L (23-31) 09/06/19 20:00 BUN 28 mg/dL (9.8-20.1) H 09/06/19 20:00 Creatinine 1.30 mg/dL (0.6-1.1) H 09/06/19 20:00 Glucose 215 mg/dL (83-110) H 09/06/19 20:00 Calcium 9.5 mg/dL (7.8-10.44) 09/06/19 20:00 Total Bilirubin 0.7 mg/dL (0.2-1.2) 09/06/19 00:12 AST 35 U/L (5-34) H 09/06/19 00:12 ALT 46 U/L (8-55) 09/06/19 00:12 Alkaline Phosphatase 194 U/L (40-110) H 09/06/19 00:12 Troponin I Less than 0.010 ng/mL (< 0.028) 09/06/19 20:00 B-Natriuretic Peptide 650.0 pg/mL (0-100) H 09/06/19 00:12 Serum Total Protein 7.1 g/dL (6.0-8.3) 09/06/19 00:12 Albumin 3.8 g/dL (3.4-4.8) 09/06/19 00:12 - EKG Interpretation EKG: at ED: sinus, poor r-wave progression, no signs of acute ischemia or right sided strain On the floor: atrial fibrillation, rate low 100s, no signs of acute ischemia - Radiology Interpretation Chest x-ray Status: image reviewed by mi Hospitalist H&P A/P - Problem (1) Acute on chronic diastolic (congestive) heart failure Code(s): I50.33 - ACUTE ON CHRONIC DIASTOLIC (CONGESTIVE) HEART FAILURE Status : Acute (2) Hypertensive emergency Code(s): I16.1 - HYPERTENSIVE EMERGENCY Status: Acute (3) Paroxysmal atrial fibrillation Code(s): I48.0 - PAROXYSMAL ATRIAL FIBRILLATION Status: Chronic (4) Type 2 diabetes mellitus Status: Chronic Qualifiers: Diabetes mellitus correction insulin use: with correction use Diabetes mellitus complication status: with kidney complications Diabetes mellitus complication detail: with chronic kidney disease Chronic kidney disease stage : stage 3 (moderate) Qualified Code(s): E11.22 - Type 2 diabetes mellitus with diabetic chronic kidney disease; N18.3 - Chronic kidney disease, stage 3 ( moderate); Z79.4 - meterman (current) use of insulin - Plan Plan: * acute decompensated HFpEF * recent echo showing relatively intact cardiac function and structure * p/w hypertensive emergency resulting in acute HF and pulmonary congestion * immediately improved after restarting mostly her home medications * paroxysmal atrial fibrillation * was initially sinus, then on floor converted to atrial fibrillation * HR ~ 100s * on eliquis (home medications) * Type II DM * poorly controlled on presentation * will resume home dose with sliding scale and monitor considering dietary changes * dispo/PPX * code status: DNAR per patient request * GI PPX: on pantoprazole for GERD * DVT PPX: on eliquis for paroxysmal atrial fibrillation * * * * plan: * decompensated HF, HTN emergency. p. afib * diurese, fluid restriction, strict IO; gradual reduction in blood pressure using home medications; considering how prompt she responded to home medications , will have to discuss managmenet with residential after recurrent admissions with similar presentations * p. afib may be difficult to control due to lung disease, JOSEPHINE nonadherent to CPAP; will have to address treatment of JOSEPHINE either with CPAP or at least mandibular device; rate currently moderately controlled (goal < 85) however, couldn't start all rate controlling medications due to significant acute drop in blood pressure * considering pulmonary congestion and increased coughing, unlikely to tolerate CPAP; will continue NC at this point; * started on steroids and breathing treatments for reported history of asthma and symptomatic improvement; * Type II DM * plan as abovementioned
[2019-09-06] MEDS ORDERED: Albuterol Sulfate 1.25 MG/3 ML NEB INH PRN (23:00)
[2019-09-07] MEDS: Insulin Glargine 15 UNITS in Pre-Filled Syringe 1 EACH SC SCH ×2 (00:10→21:32)
[2019-09-07] MEDS: Lorazepam 0.5 MG TAB PO PRN (00:11)
--- NOTE | 2019-09-07 01:26 | PDOC.EVN ---
Event Note - Event Note Event Note: RN called - Pt in resp distress/lethargic. PLAN: ABGs STAT Labs Transfer to [facility] for possible NIPPV Update ABG reviewed I updated Pt's daughter Shunte at 02:10 - conference call with AXEL Riley. She will d/w her brother and return call Update Returned call - Full code per DPOA Cardizem drip for Tachyarrhythmia - hold Procardia XL while on drip Laboratory Tests 09/07/19 01:20 ABG pH 7.22 L* ABG pCO2 87.1 H* ABG O2 Sat Calc/Demarco 86.9 L*
[2019-09-07 01:36] LABS: Actual Bicarbonate (HCO3a) 34.6 mEq/L (22-28); Analyzer IN Cardio OR; Base Excess (BEa) 4.7 mEq/L (-2.0 to +3.0); Carboxyhemoglobin (COHb) 1.7 gm% (0.0-3.0); Hemoglobin (Hb) 10.9 g/dL (12.0-16.0); O2 Tension (PaO2) 60.8 mmHg (> 70.0); Potassium - ABG Lab 5.39 mmol/L (3.70-5.30)
[2019-09-07 01:38] LABS: CO2 Tension 87.1 mmHg (35.0-45.0); Puncture Site RRA; pH, Arterial 7.22 (7.35-7.45)
[2019-09-07 01:39] LABS: ALV-art Gradient 58.485 (0-20)
[2019-09-07] MEDS ORDERED: Furosemide 40 MG/4 ML VIAL SLOW IVP SCH (01:45)
[2019-09-07] MEDS ORDERED: Diltiazem 125 MG in Sodium Chloride 0.9% 100 ML IVPB SCH (02:00)
[2019-09-07 02:06] LABS: #Eosinphils 0.1 thou/uL (0.0-0.7); #Lymphocytes 0.6 thou/uL (1.20-3.40); #Monocytes 0.2 thou/uL (0.11-0.59); #Neutrophils 7.2 thou/uL (1.40-6.50); %Basophils 0.2 % (0.0-1.0); %Lymphocytes 7.1 % (21.0-51.0); %Monocytes 2.9 % (0.0-10.0); %Neutrophils 88.8 % (42.0-75.0); Mean Corpuscular HGB CONC 30.8 g/dL (32.0-36.0); Mean Corpuscular Hemoglobin 30.1 pg (27.0-31.0); Mean Corpuscular Volume 97.5 fL (78.0-98.0); Mean Platelet Volume 8.5 fL (7.4-10.4); Platelet Count 275 thou/uL (130-400); RBC Distribution Width 14.8 % (11.5-14.5); Red Blood Cell (RBC) Count 3.32 mill/uL (4.20-5.40); White Blood Cell (WBC) Count 8.1 thou/uL (4.8-10.8)
[2019-09-07 02:23] LABS: ALT (SGPT) 36 U/L (8-55); AST (SGOT) 21 U/L (5-34); Albumin 3.7 g/dL (3.4-4.8); Alkaline Phosphatase 168 U/L (40-110); Anion Gap 16 mmol/L (10-20); BUN (Urea Nitrogen) 31 mg/dL (9.8-20.1); Bilirubin, Total 0.7 mg/dL (0.2-1.2); Calc. Creatinine Clearance 77 mL/min (70-130); Calcium 9.2 mg/dL (7.8-10.44); Carbon Dioxide 26 mmol/L (23-31); Chloride 104 mmol/L (98-107); Estimated GFR-MDRD 42; Globulin 3.1 g/dL (2.4-3.5); Glucose 270 mg/dL (83-110); Magnesium 2.1 mg/dL (1.6-2.6); Potassium 5.9 mmol/L (3.5-5.1); Protein, Total 6.8 g/dL (6.0-8.3); Sodium 140 mmol/L (136-145)
[2019-09-07] MEDS ORDERED: Bacteriostatic Water 30 ML VIAL FS PRN (02:30)
[2019-09-07] MEDS ORDERED: Sodium Bicarb 50 MEQ/50 ML VIAL IVP SCH (02:30)
[2019-09-07] MEDS ORDERED: Insulin Regular 300 UNITS/3 ML VIAL IVP SCH ×3 (02:30→17:34)
[2019-09-07] MEDS ORDERED: methylPREDNISolone Sod Succ 40 MG VIAL IVP SCH (02:30)
[2019-09-07 03:30] LABS: Actual Bicarbonate (HCO3a) 31.1 mEq/L (22-28); Base Excess (BEa) 3.5 mEq/L (-2.0 to +3.0); Calcium, Ionized 1.18 mmol/L (1.12-1.30); Carboxyhemoglobin (COHb) 1.8 gm% (0.0-3.0); Hemoglobin (Hb) 10.3 g/dL (12.0-16.0); O2 Tension (PaO2) 62.9 mmHg (> 70.0); Potassium - ABG Lab 5.27 mmol/L (3.70-5.30)
[2019-09-07 03:33] LABS: CO2 Tension 64.9 mmHg (35.0-45.0)
[2019-09-07 03:34] LABS: ALV-art Gradient 141.175 (0-20); Puncture Site RR
[2019-09-07 06:23] LABS: Anion Gap 16 mmol/L (10-20); BUN (Urea Nitrogen) 31 mg/dL (9.8-20.1); Calc. Creatinine Clearance 79 mL/min (70-130); Calcium 9.4 mg/dL (7.8-10.44); Carbon Dioxide 31 mmol/L (23-31); Chloride 102 mmol/L (98-107); Estimated GFR-MDRD 43; Glucose 188 mg/dL (83-110); Potassium 5.5 mmol/L (3.5-5.1); Sodium 143 mmol/L (136-145)
[2019-09-07] MEDS ORDERED: Dextrose 50 % In Water 50 ML SYRINGE IV SCH (08:25)
[2019-09-07 09:19] LABS: Anion Gap 18 mmol/L (10-20); BUN (Urea Nitrogen) 34 mg/dL (9.8-20.1); Calc. Creatinine Clearance 81 mL/min (70-130); Calcium 9.5 mg/dL (7.8-10.44); Carbon Dioxide 30 mmol/L (23-31); Chloride 102 mmol/L (98-107); Estimated GFR-MDRD 43; Glucose 201 mg/dL (83-110); Sodium 144 mmol/L (136-145)
[2019-09-07] MEDS: Ascorbic Acid 500 mg Chewable Tablet PO SCH (10:01)
[2019-09-07] MEDS: Aspirin 81 mg Enteric Coated Tablet PO SCH (10:02)
[2019-09-07] MEDS: Furosemide 40 MG/4 ML VIAL SLOW IVP SCH ×2 (10:02→21:34)
[2019-09-07] MEDS: hydrALAZINE 25 MG TAB PO SCH ×2 (10:02→21:34)
[2019-09-07] MEDS: Isosorbide Dinitrate 20 MG TAB PO SCH (10:03)
[2019-09-07] MEDS: Insulin Glargine 30 UNITS in Pre-Filled Syringe 1 EACH SC SCH (10:03)
[2019-09-07] MEDS: Rivaroxaban 15 MG TAB PO SCH (10:04)
[2019-09-07] MEDS: Vitamin E 400 UNITS CAP PO SCH (10:05)
--- NOTE | 2019-09-07 11:32 | CON ---
DATE OF CONSULTATION: HISTORY OF PRESENT ILLNESS: Michael Orozco is a 69-year-old female with extremely poor compliant history. She is 65 kg, presented to the ER with shortness of breath. No fever. No chills. Swelling all over. Oxygen saturation 92% in the ER. She wears oxygen 2 L. She had a CPAP machine, which was taken away because of poor compliance. She is now on the MICU. Reason for consultation, can barely walk even 50 feet without getting markedly short of breath. PAST MEDICAL HISTORY: Chronic renal failure, CHF, hypertension, diabetes, high cholesterol, and sleep apnea. PAST SURGICAL HISTORY: Previous surgeries; ankle surgery, hysterectomy, and eye surgery. SOCIAL HISTORY: Previous history of marijuana use. No tobacco. No alcohol. She was just recently discharged from the hospital with a discharge diagnosis of decompensated respiratory failure. She has had a previous sleep study done reviewing the medical records, which showed that she has severe JOSEPHINE, required 10 cms CPAP. But more than likely, she has been noncompliant, this was 10/28/2017. HOME MEDICINES: 1. Hydralazine. 2. Xarelto 15. 3. Protonix. 4. Nifedipine 60. 5. Neb treatment. 6. Insulin. 7. Albuterol. ALLERGIES: PENICILLIN, COREG, AND SULFA. REVIEW OF SYSTEMS: Otherwise, negative. She is lethargic, but arousable. PHYSICAL EXAMINATION: VITAL SIGNS: Temperature 96.8, saturations 97% on 3 L, pulse 80, blood pressure __145\76 CHEST: No wheezing or crackles. CARDIAC: Normal S1 and S2. No gallops. ABDOMEN: No masses. LABORATORY DATA: White count 8000, H and H 10 and 30, and platelet count is normal. A pO2 of 62, pCO2 of 64, and pH 7.37. Creatinine 1.4. IMPRESSION AND PLAN: Acute on chronic respiratory failure secondary to morbid obesity, sleep apnea, poor compliance, congestive heart failure, hypertension, and diabetes. Pulmonary garcia 10 cms nasal_CPAP at nighttime and as needed. Pulmonary will follow at the MICU. Strongly encouraged to lose weight. Consultation note, 70 minutes, 50% direct patient care. Job ID: [id number] MTDD
[2019-09-07] MEDS: Insulin Regular 300 UNITS/3 ML VIAL SC PRN ×2 (13:29→16:44)
[2019-09-07] MEDS: Timolol 0.5% Ophth Soln 5 ml Bottle R EYE SCH ×2 (15:11→21:34)
--- NOTE | 2019-09-07 16:35 | PDOC.PALCO ---
Palliative Care Consult - Consult Details Requesting Physician: Dr Hood Reason for Consult: goals of care, advance directives assistance, assistance with communication prognosis/disease Family Members Present: Patient daughter Kristina and son-in-law Dexter - Pertinent HPI 69 year old female with worsening CHF who has had several hospitalizations in the past few weeks. Patient was recently discharged to [facility] for skilled care with goal of returning to her home setting where she previously lived independently. 09/06 patient had lunch and began to have increase in shortness of breath, inhaler utilized at the assisted with no improvement in respiratory compromise, EMS called and patient transported to [facility] for evaluation. Mrs Orozco was hypoxic in the emergency room paired with hypertension and pulmonary congestion identified on chest x-ray. Admitted to [facility] and was subsequently transferred to [facility] for higher level of care secondary to increasing tachypnea and atrial fibrillation. No fever, congestion, chest discomfort associated with onset of respiratory distress. - Pertinent PMH Atrial Fib, CHF, Asthma, Hypertension, O2 dependent, previous use of CPAP but non compliant, Morbid Obesity - Social History Smoking Status: Never smoker Smoking: no tobacco exposure Alcohol Use: none Drug Use History: none Living Situation: assisted resident (a week into a 30 day skilled stay at [facility], previous independent living) - Medications MAR Reviewed: Yes - Allergies Allergies/Adverse Reactions: Allergies Allergy/AdvReac Type Severity Reaction Status Date / Time carvedilol [From Coreg] Allergy Intermediate HEART RATE Verified 09/06/19 20:19 TOO LOW Penicillins Allergy Intermediate ITCHING Verified 09/06/19 20:19 Sulfa (Sulfonamide Allergy Intermediate ITCHING Verified 09/06/19 20:19 Antibiotics) - Subjective Sleeping but arousable. In ROS denies complaints. Returns to sleep state intermittently during conversation, but arouses and is oriented. - ROS Constitutional: other (Denies any distress, fever, loss of appetite) Eyes: other ENT: other (Negative for congestion, difficulity swallowing) Respiratory: shortness of breath with extertion Cardiology: other (denies chest pain) Gastrointestinal: other (negative for nausea) - Objective Vital Signs: Vital Signs - Most Recent Temp Pulse Resp BP Pulse Ox 97.8 F 58 L 17 145/82 H 94 L 09/07/19 15:26 09/07/19 15:11 09/07/19 12:13 09/07/19 01:05 09/07/19 12:13 Palliative Performance Scale: 30 - Advance Directives Medical Power of Cytogeneticist: Wishes to have both daughters be joint decision makers if needed - Physical Exam Constitutional: mild distress HEENT: EOMI, moist MMs Respiratory: accessory muscle use, diminished lung sound, labored respirations Cardiovascular: RRR Gastrointestinal: non-tender Genitourinary: perera catheter (Dark urine) Musculoskeletal: edema present Neurology: no focal deficits Skin: cap refill <2 seconds, no lesions Psychiatric: A&O x 3, flat affect - Problem List (1) Palliative care encounter Code(s): Z51.5 - ENCOUNTER FOR PALLIATIVE CARE Current Visit: Yes Status: Acute (2) Acute on chronic diastolic (congestive) heart failure Code(s): I50.33 - ACUTE ON CHRONIC DIASTOLIC (CONGESTIVE) HEART FAILURE Current Visit: No Status: Acute (3) CKD (chronic kidney disease), stage III Code(s): N18.3 - CHRONIC KIDNEY DISEASE, STAGE 3 (MODERATE) Current Visit: No Status: Chronic (4) Dyslipidemia Code(s): E78.5 - HYPERLIPIDEMIA, UNSPECIFIED Current Visit: No Status: Chronic (5) Hypertension Code(s): I10 - ESSENTIAL (PRIMARY) HYPERTENSION Current Visit: No Status: Chronic Qualifiers: Hypertension type: essential hypertension Qualified Code(s): I10 - Essential (primary) hypertension (6) Morbid obesity with BMI of 50.0-59.9, adult Code(s): E66.01 - MORBID (SEVERE) OBESITY DUE TO EXCESS CALORIES; Z68.43 - BODY MASS INDEX (BMI) 50.0-59.9, ADULT Current Visit: No Status: Chronic (7) Type 2 diabetes mellitus Current Visit: No Status: Chronic Qualifiers: Diabetes mellitus terminal superintendent insulin use: with care home use Diabetes mellitus complication status: with kidney complications Diabetes mellitus complication detail: with chronic kidney disease Chronic kidney disease stage : stage 3 (moderate) Qualified Code(s): E11.22 - Type 2 diabetes mellitus with diabetic chronic kidney disease; N18.3 - Chronic kidney disease, stage 3 ( moderate); Z79.4 - keno terminal operator (current) use of insulin (8) Acute respiratory failure with hypoxia Code(s): J96.01 - ACUTE RESPIRATORY FAILURE WITH HYPOXIA Current Visit: No Status: Resolved - Plan/Recommendations Plan: visited with patient and her daughter. Discussed resuscitation status, patient states she would not desire any resuscitation measures if needed, daughter confirmed that she and her mother had previously discussed and that this is what her mother has stated in the past. Discussed disease trajectory of heart failure and trajectory toward decline. Patients goal is to return home. Discussed several options for the future. *Patient and daughter expressed that discharge to [facility] to complete skilled days *When she discharges from skilled to home to have Home Health with a palliative care become involved, and possible transition to hospice. *Have used [facility] in the past with a family member. *Transitioned to DNAR with consent signed. Millicent Sargent RNentomology teacher also present, please see notes in note section. Communicated with Dr Leong and AXEL Puckett caring for patient. [75] minutes spent on this encounter with >50% of the time in counseling and coordination of care. Thank you for this very appropriate consult.
--- NOTE | 2019-09-07 18:01 | PDOC.HOSPP ---
- Subjective Encounter Date: 09/07/19 Encounter Time: 09:00 Subjective: overnight, progressively more short of breath and increased oxygen demand, so transfered to IMCU and started on ventimask. Night physician spoke with family who decided to change the patient back to full code however, after an additional conversation with family, changed back to DNAR. During the day, patient's breathing has been improving and back on NC. - Objective Vital Signs & Weight: Vital Signs (12 hours) Temp Pulse Pulse Pulse Resp BP BP 09/07/19 15:30 63 63 151/75 H 175/72 H 09/07/19 15:26 97.8 F 09/07/19 15:11 58 L 09/07/19 12:13 58 L 17 09/07/19 11:39 97.5 F L 09/07/19 10:02 88 09/07/19 08:24 96.8 F L 09/07/19 08:00 Pulse Ox Pulse Ox Pulse Ox 09/07/19 15:30 94 L 93 L 09/07/19 15:26 09/07/19 15:11 09/07/19 12:13 94 L 09/07/19 11:39 09/07/19 10:02 09/07/19 08:24 09/07/19 08:00 94 L Weight Weight 317 lb 3.2 oz I&O: 09/06/19 09/07/19 09/08/19 06:59 06:59 06:59 Intake Total 150 Output Total 450 Balance -300 Result Diagrams: 09/07/19 01:55 09/07/19 08:33 Additional Labs: Accuchecks 09/07/19 09/07/19 09/07/19 16:46 12:56 06:22 POC Glucose 197 H 270 H 197 H 09/07/19 09/06/19 00:11 20:40 POC Glucose 258 H 232 H Radiology Reviewed by me: Yes Hospitalist ROS - Review of Systems Constitutional: denies: fever, chills, sweats, weakness, malaise, other Respiratory: reports: cough, dry, shortness of breath, SOB with excertion Cardiovascular: reports: orthopnea, paroxysmal noc. dyspnea, edema. denies: chest pain, palpitations, light headedness, other Gastrointestinal: denies: nausea, vomiting, abdominal pain, diarrhea, constipation, melena, hematochezia, other Musculoskeletal: denies: shoulder pain, back pain Neurological: reports: weakness. denies: change in speech, confusion - Medication Medications: Active Medications Generic Name Dose Route Start Last Admin Trade Name Freq PRN Reason Stop Dose Admin Albuterol Sulfate 1.25 mg 09/06/19 23:00 09/07/19 00:04 Albuterol Sulfate INH 1.25 mg [id number] PRN Administration SOB &/or Wheezing Albuterol/Ipratropium 3 ml 09/07/19 13:00 09/07/19 12:13 Duoneb NEB 3 ml [id number] ANASTASIA Administration Ascorbic Acid 500 mg 09/07/19 09:00 09/07/19 10:01 Vitamin C PO 500 mg DAILY ANASTASIA Administration Aspirin 81 mg 09/07/19 09:00 09/07/19 10:02 Ecotrin PO 81 mg DAILY ANASTASIA Administration Atorvastatin Calcium 80 mg 09/06/19 21:00 09/06/19 21:40 Lipitor PO 80 mg HS ANASTASIA Administration Furosemide 40 mg 09/07/19 09:00 09/07/19 10:02 Lasix SLOW IVP 40 mg BID ANASTASIA Administration Hydralazine HCl 100 mg 09/06/19 21:00 09/07/19 10:02 Apresoline PO 100 mg BID ANASTASIA Administration Insulin Glargine 15 units/ 0.15 mls @ 0 mls/hr 09/06/19 21:00 09/07/19 00:10 Miscellaneous Medication SC 0.15 mls HS ANASTASIA Administration Insulin Glargine 30 units/ 0.3 mls @ 0 mls/hr 09/07/19 09:00 09/07/19 10:03 Miscellaneous Medication SC 0.3 mls QAM ANASTASIA Administration Diltiazem HCl 125 mg/ Sodium 125 mls @ 0 mls/hr 09/07/19 02:00 09/07/19 02:20 Chloride IVPB 125 mls INF ANASTASIA Administration Protocol Titrate Insulin Human Regular 0 units 09/06/19 21:57 09/07/19 16:44 Humulin R SC 2 unit .MILD SLIDING SCALE PRN Administration Mild Correctional Scale Isosorbide Dinitrate 30 mg 09/07/19 09:00 09/07/19 10:03 Isordil PO 30 mg DAILY ANASTASIA Administration Labetalol HCl 20 mg 09/06/19 11:19 09/06/19 17:51 Normodyne SLOW IVP 20 mg Q4H PRN Administration for SBP > 180 or DBP >11 Lorazepam 0.5 mg 09/06/19 23:49 09/07/19 00:11 Ativan PO 0.5 mg Q4H PRN Administration Anxiety Metoprolol Succinate 50 mg 09/07/19 09:00 09/07/19 10:03 Toprol Xl PO 50 mg DAILY ANASTASIA Administration Pantoprazole Sodium 40 mg 09/07/19 09:00 09/07/19 10:04 Protonix PO 40 mg DAILY ANASTASIA Administration Rivaroxaban 15 mg 09/07/19 09:00 09/07/19 10:04 Xarelto PO 15 mg DAILY ANASTASIA Administration Timolol Maleate 1 drop 09/06/19 21:00 09/07/19 15:11 Timoptic 0.5% Ophth Soln R EYE Not Given BID COUNT INCLUDES [facility] Vitamin E 800 units 09/07/19 09:00 09/07/19 10:05 Vitamin E PO 800 units DAILY ANASTASIA Administration - Exam General Appearance: NAD, awake alert Neck: supple, symmetric, no JVD Heart: no murmur, no gallops, irregular Heart - other findings: no longer tachycardic Respiratory: no wheezes, no ronchi, rales Respiratory - other findings: satting 90s on 3L NC; tachypnia in 20s, inspiratory rales up to midfield; Gastrointestinal: soft, non-tender, non-distended, normal bowel sounds Extremities - other findings: b/l pitting edema to knee level, unchanged Neurological: cranial nerve grossly intact Psychiatric: normal affect, normal behavior, A&O x 3 Hosp A/P (1) Acute on chronic diastolic (congestive) heart failure Code(s): I50.33 - ACUTE ON CHRONIC DIASTOLIC (CONGESTIVE) HEART FAILURE Status : Acute (2) Paroxysmal atrial fibrillation Code(s): I48.0 - PAROXYSMAL ATRIAL FIBRILLATION Status: Chronic (3) Type 2 diabetes mellitus Status: Chronic Qualifiers: Diabetes mellitus exterminator helper insulin use: with halfway use Diabetes mellitus complication status: with kidney complications Diabetes mellitus complication detail: with chronic kidney disease Chronic kidney disease stage : stage 3 (moderate) Qualified Code(s): E11.22 - Type 2 diabetes mellitus with diabetic chronic kidney disease; N18.3 - Chronic kidney disease, stage 3 ( moderate); Z79.4 - correction (current) use of insulin - Plan plan discussed w/ family, perera catheter * acute hypoxic hypercapnic respiratory failure * decompensated HFpEF * overnight; likely multifactorial (pulmonary congestion, JOSEPHINE) resulting in shunting; now breathing and satting better on NC * continuing to diurese * nonemergent Hyperkalemia * no related symtpoms * likely due to respiratory acidosis * received insulin x 2 and kayaxalate; being diureses as well * * repeat K at 8pm; correct accordingly * JOSEPHINE * noncompliant with CPAP * encourage patient adherence to CPAP [id number] * atrial fibrillation * currently rate controlled with cardizem drip * plan to wean off drip; continue on home medications * HTN * currently well controlled * will continue same regimen * * T2DM * poorly controlled; now back on diet * started lispro 8u subq tidwm based on correction; continue lantus 30u qam, 15u qhs, and mild correction dose * * Dispo/code * on rivaroxaban for afib * on pantoprazole for GERD * Code status: DNAR after discussion with patient and family
[2019-09-07 20:48] LABS: Potassium 4.8 mmol/L (3.5-5.1)
[2019-09-07] MEDS: Atorvastatin Calcium 40 MG TAB PO SCH (21:33)
[2019-09-08 04:05] LABS: Anion Gap 15 mmol/L (10-20); BUN (Urea Nitrogen) 38 mg/dL (9.8-20.1); Calc. Creatinine Clearance 71 mL/min (70-130); Calcium 9.1 mg/dL (7.8-10.44); Carbon Dioxide 32 mmol/L (23-31); Chloride 102 mmol/L (98-107); Estimated GFR-MDRD 37; Glucose 97 mg/dL (83-110); Potassium 4.7 mmol/L (3.5-5.1); Sodium 144 mmol/L (136-145)
[2019-09-08] MEDS: HumaLOG 300 UNITS/3 ML VIAL SC SCH ×3 (08:34→17:25)
[2019-09-08] MEDS: Rivaroxaban 15 MG TAB PO SCH (08:35)
[2019-09-08] MEDS: Timolol 0.5% Ophth Soln 5 ml Bottle R EYE SCH ×2 (08:36→20:21)
[2019-09-08] MEDS: hydrALAZINE 25 MG TAB PO SCH ×2 (08:37→20:20)
[2019-09-08] MEDS: Aspirin 81 mg Enteric Coated Tablet PO SCH (08:37)
[2019-09-08] MEDS: Isosorbide Dinitrate 20 MG TAB PO SCH (08:38)
[2019-09-08] MEDS: Furosemide 40 MG/4 ML VIAL SLOW IVP SCH ×2 (08:38→20:21)
[2019-09-08] MEDS: Ascorbic Acid 500 mg Chewable Tablet PO SCH (08:39)
[2019-09-08] MEDS: Vitamin E 400 UNITS CAP PO SCH (08:42)
[2019-09-08] MEDS: Insulin Glargine 30 UNITS in Pre-Filled Syringe 1 EACH SC SCH ×2 (08:44→09:00)
--- NOTE | 2019-09-08 09:22 | PRG ---
DATE OF SERVICE: SUBJECTIVE: This morning, she is better. She slept on CPAP, 10 cm. OBJECTIVE: VITAL SIGNS: Pulse 65; blood pressure 150/70; sats are 96% on 3 L, decreased to 2 L 94%; and respiratory rate 16. GENERAL: No distress. CHEST: Clear. No wheezing or crackles. CARDIAC: Normal S1-S2. No gallop. ABDOMEN: No masses. LABORATORY DATA: Creatinine 1.6. IMPRESSION: 1. Morbid obesity. 2. Respiratory failure. 3. Sleep apnea. 4. Azotemia. 5. Diabetes. PLAN: She can be transferred out of the ICU. Continue PT, supportive care. Job ID: [id number]
--- NOTE | 2019-09-08 15:37 | PDOC.PALPN ---
Palliative Progress Note - Subjective Sleeping but arousable. Denies any complaints except weakness. - Objective Vital Signs: Vital Signs - Most Recent Temp Pulse Resp BP Pulse Ox 98.1 F 64 15 160/56 H 96 09/08/19 12:00 09/08/19 13:31 09/08/19 13:31 09/08/19 08:45 09/08/19 13:31 - Physical Exam Constitutional: mild distress HEENT: EOMI, moist MMs, sclera anicteric Respiratory: no wheezing, diminished lung sound, labored respirations Cardiovascular: RRR Gastrointestinal: non-tender Genitourinary: perera catheter Musculoskeletal: edema present Neurology: moves all 4 limbs Skin: cap refill <2 seconds - Assessment (1) Palliative care encounter Code(s): Z51.5 - ENCOUNTER FOR PALLIATIVE CARE Current Visit: Yes Status: Acute (2) Acute on chronic diastolic (congestive) heart failure Code(s): I50.33 - ACUTE ON CHRONIC DIASTOLIC (CONGESTIVE) HEART FAILURE Current Visit: No Status: Acute (3) CKD (chronic kidney disease), stage III Code(s): N18.3 - CHRONIC KIDNEY DISEASE, STAGE 3 (MODERATE) Current Visit: No Status: Chronic (4) Dyslipidemia Code(s): E78.5 - HYPERLIPIDEMIA, UNSPECIFIED Current Visit: No Status: Chronic (5) Hypertension Code(s): I10 - ESSENTIAL (PRIMARY) HYPERTENSION Current Visit: No Status: Chronic Qualifiers: Hypertension type: essential hypertension Qualified Code(s): I10 - Essential (primary) hypertension (6) Morbid obesity with BMI of 50.0-59.9, adult Code(s): E66.01 - MORBID (SEVERE) OBESITY DUE TO EXCESS CALORIES; Z68.43 - BODY MASS INDEX (BMI) 50.0-59.9, ADULT Current Visit: No Status: Chronic (7) Type 2 diabetes mellitus Current Visit: No Status: Chronic Qualifiers: Diabetes mellitus emt intermediate insulin use: with emt intermediate use Diabetes mellitus complication status: with kidney complications Diabetes mellitus complication detail: with chronic kidney disease Chronic kidney disease stage : stage 3 (moderate) Qualified Code(s): E11.22 - Type 2 diabetes mellitus with diabetic chronic kidney disease; N18.3 - Chronic kidney disease, stage 3 ( moderate); Z79.4 - emt intermediate (current) use of insulin - Plan Plan: Patient has signed OOHDNAR with [facility], on chart for physician signature. Revisited with patient and her daughter that her goal of care is to go back to the shelter in [place] for the remainder of her skilled days, then home with [facility], palliative care and transition to Hospice. Millicent Sargent RN also followed patient, please refer to her notes. Palliative Care will sign off, please reconsult if we can be of further assistance. [] minutes spent on this encounter with >50% of the time in counseling and coordination of care. - ROS Constitutional: weakness ENT: other (Negative for difficulity swallowing, congestion) Respiratory: shortness of breath with extertion Cardiology: other (Denies palpitations, chest discomfort) Gastrointestinal: other (denies constipation, last BM 09/07/19)
[2019-09-08] MEDS: Atorvastatin Calcium 40 MG TAB PO SCH (20:20)
[2019-09-08] MEDS: Insulin Glargine 15 UNITS in Pre-Filled Syringe 1 EACH SC SCH (20:32)
--- NOTE | 2019-09-08 21:07 | EKG ---
Test Reason : STAT Blood Pressure : / mmHG Vent. Rate : 084 BPM Atrial Rate : 079 BPM P-R Int : 000 ms QRS Dur : 084 ms QT Int : 378 ms P-R-T Axes : 000 033 084 degrees QTc Int : 446 ms Atrial fibrillation Anterior infarct , age undetermined Abnormal ECG When compared with ECG of 05-SEP-2019 23:35, (Unconfirmed) Atrial fibrillation has replaced Sinus rhythm Confirmed by Marilee JEFF ([id number]) on 09/08/2019 9:07:14 PM Referred By: CHICHI Confirmed By:Marilee JEFF
--- NOTE | 2019-09-08 23:35 | PDOC.HOSPP ---
- Subjective Encounter Date: 09/08/19 Encounter Time: 08:00 Subjective: overnight, converted to sinus. This morning, feeling better and breathing well on 3L NC. Remains in sinus - Objective Vital Signs & Weight: Vital Signs (12 hours) Temp Pulse Resp BP BP Pulse Ox 09/08/19 20:21 88 143/64 H 09/08/19 20:20 88 143/64 H 09/08/19 19:02 66 16 95 09/08/19 18:24 98.9 F 91 16 168/76 H 94 L 09/08/19 15:57 98 F 09/08/19 13:31 64 15 96 09/08/19 12:00 98.1 F Weight Weight 308 lb 12.8 oz Most Recent Monitor Data Heart Rate from ECG 112 NIBP 149/105 NIBP BP-Mean 119 Respiration from ECG 19 SpO2 100 I&O: 09/07/19 09/08/19 09/09/19 06:59 06:59 06:59 Intake Total 150 1040 480 Output Total 450 900 900 Balance -300 140 -420 Result Diagrams: 09/07/19 01:55 09/08/19 03:41 Additional Labs: Accuchecks 09/08/19 09/08/19 09/08/19 20:34 15:57 11:40 POC Glucose 153 H 145 H 138 H 09/08/19 09/07/19 05:49 23:35 POC Glucose 93 133 H Hospitalist ROS - Review of Systems Constitutional: denies: fever, chills, sweats, weakness, malaise, other Respiratory: denies: cough, dry, shortness of breath, hemoptysis, SOB with excertion, pleuritic pain, sputum, wheezing, other Cardiovascular: denies: chest pain, palpitations, orthopnea, paroxysmal noc. dyspnea, edema, light headedness, other Gastrointestinal: denies: nausea, vomiting, abdominal pain, diarrhea, constipation, melena, hematochezia, other Genitourinary: denies: hematuria - Medication Medications: Active Medications Generic Name Dose Route Start Last Admin Trade Name Freq PRN Reason Stop Dose Admin Albuterol Sulfate 1.25 mg 09/06/19 23:00 09/07/19 00:04 Albuterol Sulfate INH 1.25 mg [id number] PRN Administration SOB &/or Wheezing Albuterol/Ipratropium 3 ml 09/07/19 13:00 09/08/19 19:02 Duoneb NEB 3 ml [id number] ANASTASIA Administration Ascorbic Acid 500 mg 09/07/19 09:00 09/08/19 08:39 Vitamin C PO 500 mg DAILY ANASTASIA Administration Aspirin 81 mg 09/07/19 09:00 09/08/19 08:37 Ecotrin PO 81 mg DAILY ANASTASIA Administration Atorvastatin Calcium 80 mg 09/06/19 21:00 09/08/19 20:20 Lipitor PO 80 mg HS ANASTASIA Administration Furosemide 40 mg 09/07/19 09:00 09/08/19 20:21 Lasix SLOW IVP 40 mg BID ANASTASIA Administration Hydralazine HCl 100 mg 09/06/19 21:00 09/08/19 20:20 Apresoline PO 100 mg BID ANASTASIA Administration Insulin Glargine 15 units/ 0.15 mls @ 0 mls/hr 09/06/19 21:00 09/08/19 20:32 Miscellaneous Medication SC Not Given [facility] Insulin Glargine 30 units/ 0.3 mls @ 0 mls/hr 09/07/19 09:00 09/08/19 09:00 Miscellaneous Medication SC Not Given QAM [facility] Insulin Human Lispro 8 units 09/08/19 08:00 09/08/19 17:25 Humalog SC Not Given TID-WM [facility] Insulin Human Regular 0 units 09/06/19 21:57 09/07/19 16:44 Humulin R SC 2 unit .MILD SLIDING SCALE PRN Administration Mild Correctional Scale Isosorbide Dinitrate 30 mg 09/07/19 09:00 09/08/19 08:38 Isordil PO 30 mg DAILY [facility] Administration Labetalol HCl 20 mg 09/06/19 11:19 09/06/19 17:51 Normodyne SLOW IVP 20 mg Q4H PRN Administration for SBP > 180 or DBP >11 Lorazepam 0.5 mg 09/06/19 23:49 09/07/19 00:11 Ativan PO 0.5 mg Q4H PRN Administration Anxiety Metoprolol Succinate 50 mg 09/07/19 09:00 09/08/19 08:37 Toprol Xl PO 50 mg DAILY ANASTASIA Administration Pantoprazole Sodium 40 mg 09/07/19 09:00 09/08/19 08:39 Protonix PO 40 mg DAILY ANASTASIA Administration Rivaroxaban 15 mg 09/07/19 09:00 09/08/19 08:35 Xarelto PO 15 mg DAILY ANASTASIA Administration Timolol Maleate 1 drop 09/06/19 21:00 09/08/19 20:21 Timoptic 0.5% Ophth Soln R EYE 1 drp BID ANASTASIA Administration Vitamin E 800 units 09/07/19 09:00 09/08/19 08:42 Vitamin E PO Not Given DAILY ANASTASIA - Exam General Appearance: NAD, awake alert Neck: no JVD Heart: RRR, no murmur, no gallops Respiratory: no wheezes, no rales, no ronchi Respiratory - other findings: diffusely reduced breath sounds, saturating 92 on 2L NC Gastrointestinal: soft, non-tender, non-distended, normal bowel sounds, no palpable masses, no hepatomegaly, no splenomegaly, no bruit Extremities: 2+ LE edema Psychiatric: normal behavior, A&O x 3, flat affect Hosp A/P (1) Acute on chronic diastolic (congestive) heart failure Code(s): I50.33 - ACUTE ON CHRONIC DIASTOLIC (CONGESTIVE) HEART FAILURE Status : Acute (2) Paroxysmal atrial fibrillation Code(s): I48.0 - PAROXYSMAL ATRIAL FIBRILLATION Status: Chronic (3) Type 2 diabetes mellitus Status: Chronic Qualifiers: Diabetes mellitus long wall mining machine tender insulin use: with long wall mining machine tender use Diabetes mellitus complication status: with kidney complications Diabetes mellitus complication detail: with chronic kidney disease Chronic kidney disease stage : stage 3 (moderate) Qualified Code(s): E11.22 - Type 2 diabetes mellitus with diabetic chronic kidney disease; N18.3 - Chronic kidney disease, stage 3 ( moderate); Z79.4 - terminal press operator (current) use of insulin - Plan * decompensated HFpEF * overnight; likely multifactorial (pulmonary congestion, JOSEPHINE) resulting in shunting; now breathing and satting better on NC * continuing to diurese * JOSEPHINE * noncompliant with CPAP * will continue Bipap qhs * atrial fibrillation * converted to sinus overnight * HTN * currently well controlled * will continue same regimen * * T2DM * well controlled * continue same regimen * * Dispo/code * on rivaroxaban for afib * on pantoprazole for GERD * Code status: DNAR
[2019-09-09] MEDS: Lorazepam 0.5 MG TAB PO PRN (02:57)
[2019-09-09 06:40] LABS: Anion Gap 15 mmol/L (10-20); BUN (Urea Nitrogen) 35 mg/dL (9.8-20.1); Calc. Creatinine Clearance 73 mL/min (70-130); Carbon Dioxide 31 mmol/L (23-31); Chloride 101 mmol/L (98-107); Estimated GFR-MDRD 40; Glucose 120 mg/dL (83-110); Magnesium 2.2 mg/dL (1.6-2.6); Potassium 4.7 mmol/L (3.5-5.1); Sodium 142 mmol/L (136-145)
[2019-09-09] MEDS: Ascorbic Acid 500 mg Chewable Tablet PO SCH (09:05)
[2019-09-09] MEDS: HumaLOG 300 UNITS/3 ML VIAL SC SCH ×3 (09:05→17:26)
[2019-09-09] MEDS: Aspirin 81 mg Enteric Coated Tablet PO SCH (09:05)
[2019-09-09] MEDS: Isosorbide Dinitrate 20 MG TAB PO SCH (09:05)
[2019-09-09] MEDS: Furosemide 40 MG/4 ML VIAL SLOW IVP SCH ×2 (09:06→19:47)
[2019-09-09] MEDS: Vitamin E 400 UNITS CAP PO SCH (09:06)
[2019-09-09] MEDS: Timolol 0.5% Ophth Soln 5 ml Bottle R EYE SCH ×2 (09:06→19:47)
[2019-09-09] MEDS: hydrALAZINE 25 MG TAB PO SCH ×2 (09:06→19:48)
[2019-09-09] MEDS: Rivaroxaban 15 MG TAB PO SCH (09:06)
--- NOTE | 2019-09-09 09:06 | PRG ---
DATE OF SERVICE: 09/09/2019 SUBJECTIVE: Michael Orozco denies any pain or discomfort. She is awake, alert, and responsive. OBJECTIVE: VITAL SIGNS: Temperature 98, pulse 96, respiratory rate 20, saturations are 92% on 2 L, and blood pressure 146/64. CHEST: Decreased breath sounds. No wheezing. CARDIAC: Normal S1 and S2. No gallops. ABDOMEN: No masses. ASSESSMENT: 1. Morbid obesity, sleep apnea, previous sleep study shows 10 cm nasal CPAP. 2. Renal failure. PLAN: Continue PT, supportive care, nasal CPAP. Eventually placement. Job ID: [id number]
[2019-09-09] MEDS: Insulin Glargine 30 UNITS in Pre-Filled Syringe 1 EACH SC SCH (09:07)
[2019-09-09] MEDS: Insulin Regular 300 UNITS/3 ML VIAL SC PRN ×2 (11:42→17:28)
--- NOTE | 2019-09-09 16:57 | PDOC.HOSPP ---
- Subjective Encounter Date: 09/09/19 Encounter Time: 09:00 Subjective: no overnight events. Per patient, used CPAP throughout night. Breathes and feels better. will continue to diurese. Placement in SNF initiated. - Objective Vital Signs & Weight: Vital Signs (12 hours) Temp Pulse Pulse Pulse Resp BP BP 09/09/19 15:00 98.3 F 83 22 H 09/09/19 14:15 89 86 165/71 H 149/68 H 09/09/19 13:29 65 16 09/09/19 11:45 98.2 F 96 18 09/09/19 08:50 97.3 F L 95 24 H 09/09/19 07:25 64 16 BP Pulse Ox 09/09/19 15:00 158/70 H 95 09/09/19 14:15 09/09/19 13:29 95 09/09/19 11:45 139/65 94 L 09/09/19 08:50 138/63 95 09/09/19 07:25 95 Weight Weight 303 lb 9.6 oz Most Recent Monitor Data Heart Rate from ECG 112 NIBP 149/105 NIBP BP-Mean 119 Respiration from ECG 19 SpO2 100 I&O: 09/08/19 09/09/19 09/10/19 06:59 06:59 06:59 Intake Total 1040 780 Output Total 900 1850 Balance 140 -1070 Result Diagrams: 09/07/19 01:55 09/09/19 06:04 Additional Labs: Accuchecks 09/09/19 09/09/19 09/08/19 11:07 05:48 20:34 POC Glucose 196 H 125 H 153 H Hospitalist ROS - Review of Systems Constitutional: denies: fever, chills, sweats, weakness, malaise, other Respiratory: reports: cough, dry, SOB with excertion. denies: shortness of breath, hemoptysis, pleuritic pain, sputum, wheezing Cardiovascular: reports: orthopnea, paroxysmal noc. dyspnea, edema. denies: chest pain, palpitations Gastrointestinal: denies: nausea, vomiting, abdominal pain, diarrhea, constipation, melena, hematochezia, other Genitourinary: denies: dysuria, frequency, incontinence, hematuria Neurological: denies: weakness - Medication Medications: Active Medications Generic Name Dose Route Start Last Admin Trade Name Freq PRN Reason Stop Dose Admin Albuterol Sulfate 1.25 mg 09/06/19 23:00 09/07/19 00:04 Albuterol Sulfate INH 1.25 mg [id number] PRN Administration SOB &/or Wheezing Albuterol/Ipratropium 3 ml 09/07/19 13:00 09/09/19 13:29 Duoneb NEB 3 ml [id number] ANASTASIA Administration Ascorbic Acid 500 mg 09/07/19 09:00 09/09/19 09:05 Vitamin C PO 500 mg DAILY ANASTASIA Administration Aspirin 81 mg 09/07/19 09:00 09/09/19 09:05 Ecotrin PO 81 mg DAILY ANASTASIA Administration Atorvastatin Calcium 80 mg 09/06/19 21:00 09/08/19 20:20 Lipitor PO 80 mg HS ANASTASIA Administration Furosemide 40 mg 09/07/19 09:00 09/09/19 09:06 Lasix SLOW IVP 40 mg BID ANASTASIA Administration Hydralazine HCl 100 mg 09/06/19 21:00 09/09/19 09:06 Apresoline PO 100 mg BID ANASTASIA Administration Insulin Glargine 15 units/ 0.15 mls @ 0 mls/hr 09/06/19 21:00 09/08/19 20:32 Miscellaneous Medication SC Not Given HS ANASTASIA Insulin Glargine 30 units/ 0.3 mls @ 0 mls/hr 09/07/19 09:00 09/09/19 09:07 Miscellaneous Medication SC Not Given QAM [facility] Insulin Human Lispro 8 units 09/08/19 08:00 09/09/19 11:53 Humalog SC Not Given TID-WM [facility] Insulin Human Regular 0 units 09/06/19 21:57 09/09/19 11:42 Humulin R SC 2 unit .MILD SLIDING SCALE PRN Administration Mild Correctional Scale Isosorbide Dinitrate 30 mg 09/07/19 09:00 09/09/19 09:05 Isordil PO 30 mg DAILY ANASTASIA Administration Labetalol HCl 20 mg 09/06/19 11:19 09/06/19 17:51 Normodyne SLOW IVP 20 mg Q4H PRN Administration for SBP > 180 or DBP >11 Metoprolol Succinate 50 mg 09/07/19 09:00 09/09/19 09:06 Toprol Xl PO 50 mg DAILY ANASTASIA Administration Pantoprazole Sodium 40 mg 09/07/19 09:00 09/09/19 09:06 Protonix PO 40 mg DAILY ANASTASIA Administration Rivaroxaban 15 mg 09/07/19 09:00 09/09/19 09:06 Xarelto PO 15 mg DAILY ANASTASIA Administration Timolol Maleate 1 drop 09/06/19 21:00 09/09/19 09:06 Timoptic 0.5% Ophth Soln R EYE 1 drp BID ANASTASIA Administration Vitamin E 800 units 09/07/19 09:00 09/09/19 09:06 Vitamin E PO 800 units DAILY ANASTASIA Administration - Exam General Appearance: NAD, awake alert Neck: no JVD Heart: no murmur, no gallops, irregular Heart - other findings: rate 80-90s Respiratory: no rales Gastrointestinal: soft, non-tender, non-distended, normal bowel sounds, no bruit Extremities: 2+ LE edema Neurological: cranial nerve grossly intact Psychiatric: normal affect, normal behavior, A&O x 3 Hosp A/P (1) Acute on chronic diastolic (congestive) heart failure Code(s): I50.33 - ACUTE ON CHRONIC DIASTOLIC (CONGESTIVE) HEART FAILURE Status : Acute (2) Paroxysmal atrial fibrillation Code(s): I48.0 - PAROXYSMAL ATRIAL FIBRILLATION Status: Chronic (3) Type 2 diabetes mellitus Status: Chronic Qualifiers: Diabetes mellitus usp insulin use: with intermediate accountant use Diabetes mellitus complication status: with kidney complications Diabetes mellitus complication detail: with chronic kidney disease Chronic kidney disease stage : stage 3 (moderate) Qualified Code(s): E11.22 - Type 2 diabetes mellitus with diabetic chronic kidney disease; N18.3 - Chronic kidney disease, stage 3 ( moderate); Z79.4 - retirement (current) use of insulin - Plan * decompensated HFpEF * symptomatically improving * continuing to diurese * JOSEPHINE * noncompliant with CPAP at home * will continue Bipap qhs * educated regarding association of JOSEPHINE management and atrial fibrillation * atrial fibrillation * back at atrial fibrillation; rate 80-90s; asymptomatic * HTN * currently poorly controlled * will continue same regimen and add amlodipine 10mg PO qd * * T2DM * well controlled * continue same regimen * * Dispo/code * on rivaroxaban for afib * on pantoprazole for GERD * Code status: [facility]
[2019-09-09] MEDS ORDERED: Amlodipine 10 MG TAB PO SCH (17:15)
[2019-09-09] MEDS: Atorvastatin Calcium 40 MG TAB PO SCH (19:48)
[2019-09-09] MEDS: Insulin Glargine 15 UNITS in Pre-Filled Syringe 1 EACH SC SCH (21:37)
[2019-09-10] MEDS ORDERED: Melatonin 3 MG TAB PO PRN (00:49)
[2019-09-10] MEDS ORDERED: diphenhydrAMINE 25 MG CAP PO SCH (01:00)
[2019-09-10 05:37] LABS: Actual Bicarbonate (HCO3v) 34 mEq/L (22-28); Base Excess 7.8 mEq/L (-2.0 to +3.0); Calcium, Ionized 1.08 mmol/L (1.16-1.32); Chloride (ABG LAB) 99 mmol/L (98-106); Potassium - ABG Lab 3.98 mmol/L (3.70-5.30); Sodium 140.4 mmol/L (133-146); pH (venous) 7.41 (7.32-7.43)
[2019-09-10 06:01] LABS: Anion Gap 10 mmol/L (10-20); BUN (Urea Nitrogen) 30 mg/dL (9.8-20.1); Calc. Creatinine Clearance 78 mL/min (70-130); Calcium 8.6 mg/dL (7.8-10.44); Carbon Dioxide 37 mmol/L (23-31); Chloride 99 mmol/L (98-107); Estimated GFR-MDRD 43; Glucose 144 mg/dL (83-110); Potassium 4.1 mmol/L (3.5-5.1); Sodium 142 mmol/L (136-145)
--- NOTE | 2019-09-10 08:58 | PRG ---
DATE OF SERVICE: 09/10/2019 OBJECTIVE: GENERAL: The patient is awake, responsive. VITAL SIGNS: Temperature 98, pulse 88, respiratory rate 18, sats are 92% on 2L, blood pressure 171/74. She still uses CPAP at nighttime. CHEST: Decreased breath sounds, no wheezing. CARDIAC: Normal S1, S2. No gallops. ABDOMEN: No masses. Creatinine is 1.4. IMPRESSION: Morbid obesity, respiratory failure, sleep apnea, hypertension, and diabetes. PLAN: Disposition as per primary care physician. Job ID: [id number]
[2019-09-10] MEDS: HumaLOG 300 UNITS/3 ML VIAL SC SCH ×3 (09:51→18:09)
[2019-09-10] MEDS: Insulin Glargine 30 UNITS in Pre-Filled Syringe 1 EACH SC SCH (09:59)
[2019-09-10] MEDS: Amlodipine 10 MG TAB PO SCH (10:00)
[2019-09-10] MEDS: Aspirin 81 mg Enteric Coated Tablet PO SCH (10:00)
[2019-09-10] MEDS: Rivaroxaban 15 MG TAB PO SCH (10:00)
[2019-09-10] MEDS: Vitamin E 400 UNITS CAP PO SCH (10:00)
[2019-09-10] MEDS: hydrALAZINE 25 MG TAB PO SCH ×2 (10:01→21:21)
[2019-09-10] MEDS: Isosorbide Dinitrate 20 MG TAB PO SCH (10:01)
[2019-09-10] MEDS: Furosemide 40 MG/4 ML VIAL SLOW IVP SCH ×2 (10:02→21:20)
[2019-09-10] MEDS: Timolol 0.5% Ophth Soln 5 ml Bottle R EYE SCH ×2 (10:02→21:23)
[2019-09-10] MEDS: Ascorbic Acid 500 mg Chewable Tablet PO SCH (10:02)
[2019-09-10] MEDS: Insulin Regular 300 UNITS/3 ML VIAL SC PRN (12:13)
--- NOTE | 2019-09-10 20:46 | PDOC.HOSPP ---
- Subjective Encounter Date: 09/11/19 Encounter Time: 10:00 Subjective: no overnight events. Continues to improve and at baseline breathing and saturation. No complaints - Objective Vital Signs & Weight: Vital Signs (12 hours) Temp Pulse Resp BP BP Pulse Ox 09/10/19 19:00 83 16 93 L 09/10/19 15:05 98.7 F 75 16 127/85 96 09/10/19 13:55 74 18 98 09/10/19 12:00 98.6 F 83 18 147/64 H 90 L 09/10/19 10:00 91 152/67 H Weight Weight 304 lb 11.2 oz Most Recent Monitor Data Heart Rate from ECG 112 NIBP 149/105 NIBP BP-Mean 119 Respiration from ECG 19 SpO2 100 I&O: 09/09/19 09/10/19 09/11/19 06:59 06:59 06:59 Intake Total 780 620 720 Output Total 7972 3480 2400 Balance -3939 -7826 -7080 Result Diagrams: 09/07/19 01:55 09/10/19 05:26 Additional Labs: Accuchecks 09/10/19 09/10/19 09/10/19 16:39 10:30 05:52 POC Glucose 174 H 222 H 159 H 09/09/19 20:48 POC Glucose 199 H Hospitalist ROS - Review of Systems Constitutional: denies: fever, chills, sweats, weakness, malaise, other Respiratory: denies: cough, dry, shortness of breath, hemoptysis, SOB with excertion, pleuritic pain, sputum, wheezing, other Cardiovascular: denies: chest pain, palpitations, orthopnea, paroxysmal noc. dyspnea, edema, light headedness, other Gastrointestinal: denies: nausea, vomiting, abdominal pain, diarrhea, constipation, melena, hematochezia, other Skin: denies: rash Neurological: denies: weakness - Medication Medications: Active Medications Generic Name Dose Route Start Last Admin Trade Name Freq PRN Reason Stop Dose Admin Albuterol Sulfate 1.25 mg 09/06/19 23:00 09/07/19 00:04 Albuterol Sulfate INH 1.25 mg [id number] PRN Administration SOB &/or Wheezing Albuterol/Ipratropium 3 ml 09/07/19 13:00 09/10/19 19:00 Duoneb NEB 3 ml [id number] ANASTASIA Administration Amlodipine Besylate 10 mg 09/10/19 09:00 09/10/19 10:00 Norvasc PO 10 mg DAILY ANASTASIA Administration Ascorbic Acid 500 mg 09/07/19 09:00 09/10/19 10:02 Vitamin C PO 500 mg DAILY ANASTASIA Administration Aspirin 81 mg 09/07/19 09:00 09/10/19 10:00 Ecotrin PO 81 mg DAILY ANASTASIA Administration Atorvastatin Calcium 80 mg 09/06/19 21:00 09/09/19 19:48 Lipitor PO 80 mg HS ANASTASIA Administration Furosemide 40 mg 09/07/19 09:00 09/10/19 10:02 Lasix SLOW IVP 40 mg BID ANASTASIA Administration Hydralazine HCl 100 mg 09/06/19 21:00 09/10/19 10:01 Apresoline PO 100 mg BID ANASTASIA Administration Insulin Glargine 15 units/ 0.15 mls @ 0 mls/hr 09/06/19 21:00 09/09/19 21:37 Miscellaneous Medication SC Not Given HS ANASTASIA Insulin Glargine 30 units/ 0.3 mls @ 0 mls/hr 09/07/19 09:00 09/10/19 09:59 Miscellaneous Medication SC 0.3 mls QAM ANASTASIA Administration Insulin Human Lispro 8 units 09/08/19 08:00 09/10/19 18:09 Humalog SC Not Given TID-WM ANASTASIA Insulin Human Regular 0 units 09/06/19 21:57 09/10/19 12:13 Humulin R SC 3 unit .MILD SLIDING SCALE PRN Administration Mild Correctional Scale Isosorbide Dinitrate 30 mg 09/07/19 09:00 09/10/19 10:01 Isordil PO 30 mg DAILY ANASTASIA Administration Labetalol HCl 20 mg 09/06/19 11:19 09/06/19 17:51 Normodyne SLOW IVP 20 mg Q4H PRN Administration for SBP > 180 or DBP >11 Metoprolol Succinate 50 mg 09/07/19 09:00 09/10/19 10:01 Toprol Xl PO 50 mg DAILY ANASTASIA Administration Pantoprazole Sodium 40 mg 09/07/19 09:00 09/10/19 10:01 Protonix PO 40 mg DAILY ANASTASIA Administration Rivaroxaban 15 mg 09/07/19 09:00 09/10/19 10:00 Xarelto PO 15 mg DAILY ANASTASIA Administration Timolol Maleate 1 drop 09/06/19 21:00 09/10/19 10:02 Timoptic 0.5% Ophth Soln R EYE 1 drp BID ANASTASIA Administration Vitamin E 800 units 09/07/19 09:00 09/10/19 10:00 Vitamin E PO 800 units DAILY ANASTASIA Administration - Exam General Appearance: NAD, awake alert Neck: negative: no JVD Heart: RRR, no murmur, no gallops, no rubs, normal peripheral pulses Respiratory: CTAB, no wheezes, no rales, no ronchi Gastrointestinal: soft, non-tender, non-distended Extremities: 2+ LE edema Psychiatric: normal affect, normal behavior, A&O x 3 Hosp A/P (1) Acute on chronic diastolic (congestive) heart failure Code(s): I50.33 - ACUTE ON CHRONIC DIASTOLIC (CONGESTIVE) HEART FAILURE Status : Acute (2) Paroxysmal atrial fibrillation Code(s): I48.0 - PAROXYSMAL ATRIAL FIBRILLATION Status: Chronic (3) Type 2 diabetes mellitus Status: Chronic Qualifiers: 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: with half-way use Diabetes mellitus complication status: with kidney complications Diabetes mellitus complication detail: with chronic kidney disease Chronic kidney disease stage : stage 3 (moderate) Qualified Code(s): E11.22 - Type 2 diabetes mellitus with diabetic chronic kidney disease; N18.3 - Chronic kidney disease, stage 3 ( moderate); Z79.4 - intermediate frame tender (current) use of insulin - Plan * decompensated HFpEF * symptomatically improving * continuing to diurese * JOSEPHINE * noncompliant with CPAP at home * will change from bipap to CPAP to manage JOSEPHINE * educated regarding association of JOSEPHINE management and atrial fibrillation * atrial fibrillation * back at atrial fibrillation; rate 80-90s; asymptomatic * HTN * currently better controlled * will continue same regimen * * T2DM * well controlled * continue same regimen * * Dispo/code * on rivaroxaban for afib * on pantoprazole for GERD * Code status: DNA
[2019-09-10] MEDS: Atorvastatin Calcium 40 MG TAB PO SCH (21:20)
[2019-09-10] MEDS: Insulin Glargine 15 UNITS in Pre-Filled Syringe 1 EACH SC SCH (21:21)
[2019-09-11] MEDS: Isosorbide Dinitrate 20 MG TAB PO SCH (09:43)
[2019-09-11] MEDS: Vitamin E 400 UNITS CAP PO SCH (09:43)
[2019-09-11] MEDS: Aspirin 81 mg Enteric Coated Tablet PO SCH (09:44)
[2019-09-11] MEDS: hydrALAZINE 25 MG TAB PO SCH (09:44)
[2019-09-11] MEDS: Ascorbic Acid 500 mg Chewable Tablet PO SCH (09:44)
[2019-09-11] MEDS: Rivaroxaban 15 MG TAB PO SCH (09:44)
[2019-09-11] MEDS: Amlodipine 10 MG TAB PO SCH (09:45)
[2019-09-11] MEDS: Insulin Glargine 30 UNITS in Pre-Filled Syringe 1 EACH SC SCH (09:45)
[2019-09-11] MEDS: Furosemide 40 MG/4 ML VIAL SLOW IVP SCH ×2 (09:45→10:20)
[2019-09-11] MEDS: HumaLOG 300 UNITS/3 ML VIAL SC SCH ×2 (09:46→13:15)
[2019-09-11] MEDS: Timolol 0.5% Ophth Soln 5 ml Bottle R EYE SCH (09:47)
[2019-09-11] MEDS ORDERED: Furosemide 40 MG TAB PO SCH ×2 (10:15→14:00)
--- NOTE | 2019-09-11 10:47 | PRG ---
DATE OF SERVICE: 09/11/2019 SUBJECTIVE: This morning, she is better. OBJECTIVE: VITAL SIGNS: Temperature 98, blood pressure 179/81, saturations are 95% on 2 L, respiratory rate 18. GENERAL: Awake, alert, responsive. Denies any pain or discomfort. CHEST: No wheezing or crackles. CARDIAC: Normal S1 and S2. No gallops. ABDOMEN: No masses. IMPRESSION: Respiratory failure, congestive heart failure, sleep apnea, renal failure, morbid obesity. She will benefit on 10 cm nasal CPAP. Weight loss, PT, supportive care. Job ID: [id number]
[2019-09-11 12:13] VITALS: TEMP 98.8
[2019-09-11 15:49] VITALS: BP 154/70
--- NOTE | 2019-09-12 15:50 | DIS ---
DATE OF ADMISSION: 09/06/2019 DATE OF DISCHARGE: 09/11/2019 HOSPITAL COURSE: Ms. Orozco is a 69-year-old female with medical history of heart failure with preserved ejection fraction and obstructive sleep apnea, who presented to the ED with shortness of breath. She was diagnosed with decompensated heart failure with preserved ejection fraction as well as acute hypoxic respiratory failure that is multifactorial, both due to the heart failure as well as obstructive sleep apnea and nonadherence to CPAP. The patient initially was started on BiPAP, but remained in respiratory distress and also required admission to the ICU and intubation. The patient was diuresed and was started on nightly BiPAP in order to address her obstructive sleep apnea and respiratory failure after she was extubated. She continued to improve with diuresis and with adherence to her nightly CPAP. She was discharged back to her intermediate with prescription for CPAP as well as detailed education regarding adherence to CPAP as well as alternative measures such as mandibular advancement device in case she did not tolerate the CPAP. PHYSICAL EXAMINATION: GENERAL: She is in no apparent distress. Awake and alert x3. NECK: No JVD. HEART: Regular rate and rhythm. No murmur. No gallops. No rubs. Normal peripheral pulses. RESPIRATORY: Clear to auscultation bilaterally. No wheezes. No rales. No rhonchi. GASTROINTESTINAL: Soft, nontender, and nondistended. EXTREMITIES: Lower extremity edema up to the knee level, which has markedly improved during her inpatient stay. PSYCHIATRIC: Normal affect. Normal behavior. Alert and oriented x3. ASSESSMENT AND PLAN: Ms. Orozco is a 69-year-old female, who presented with acute hypoxic hypercapnic respiratory failure due to decompensated heart failure with preserved ejection fraction as well as nonadherence to CPAP treating her obstructive sleep apnea. 1. Decompensated heart failure with preserved ejection fraction. a. The patient was diuresed during her inpatient stay and pulmonary congestion improved, both based on physical exam as well as imaging. The patient was continued on diureses as an outpatient and/or home medication. b. The patient's blood pressure was better controlled as an inpatient, which is etiology of the decompensated heart failure. 2. Obstructive sleep apnea. a. The patient is not adherent to the CPAP at the intermediate. b. The patient responded very well to CPAP at night. However, she kept taking the CPAP off midnight. c. The patient was educated regarding the association of nonadherence to obstructive sleep apnea management and atrial fibrillation, and was requested to adhere to her CPAP or at least alternative methods such as mandibular advancement device. 3. Atrial fibrillation. a. The patient was initially in sinus rhythm, but during her inpatient stay converted to atrial fibrillation. However, 2 days prior to discharge, she converted back to sinus rhythm and her rate was 80s to 90s, there were no symptoms associated with arrhythmia throughout remaining inpatient stay. b. We will continue patient on home medications namely anticoagulation and rate control as well as rhythm control medications. 4. Hypertension. a. The patient's blood pressure has been mostly high during her inpatient stay. b. The patient's medications were adjusted in order to better control her blood pressure. c. The patient was educated regarding the new medication prior to discharge and was requested to take these medications. d. Disposition: During her inpatient stay, the patient requested to remain DNAR. However, the family disagreed and after speaking with the patient, she was changed back to full code. The following day, a discussion with the family was conducted and the family and the patient decided to change status to DNAR. Job ID: [id number]
== END 2019-09-11 18:00 | DRG 291 ==
LOC: ERS 23:19 → OBSVTOIN 09-06 01:29 → ERHOLD 09-06 01:29 → 2NO 09-06 15:49 → IMCU/EMU 09-07 01:22 → 2NO 09-07 01:43 → IMCU/EMU 09-07 01:44 → 2NO 09-08 18:27
PROVIDERS: ADMIT Internal Medicine; ATTEND Internal Medicine
DX: I13.0 Hypertensive heart and chronic kidney disease with heart failure and stage 1 through stage 4 chronic kidney disease, or unspecified chronic kidney disease (principal); I50.33 Acute on chronic diastolic (congestive) heart failure; J96.01 Acute respiratory failure with hypoxia; J96.02 Acute respiratory failure with hypercapnia; I16.1 Hypertensive emergency; Z68.43 Body mass index [BMI] 50.0-59.9, adult; Z66 Do not resuscitate; Z51.5 Encounter for palliative care; E78.00 Pure hypercholesterolemia, unspecified; E11.22 Type 2 diabetes mellitus with diabetic chronic kidney disease; J45.909 Unspecified asthma, uncomplicated; G47.33 Obstructive sleep apnea (adult) (pediatric); E66.01 Morbid (severe) obesity due to excess calories; I48.0 Paroxysmal atrial fibrillation; E78.5 Hyperlipidemia, unspecified; N18.3 Chronic kidney disease, stage 3 (moderate); K21.9 Gastro-esophageal reflux disease without esophagitis; R79.89 Other specified abnormal findings of blood chemistry; E87.5 Hyperkalemia; Z90.49 Acquired absence of other specified parts of digestive tract; Z88.0 Allergy status to penicillin; Z88.2 Allergy status to sulfonamides; Z88.8 Allergy status to other drugs, medicaments and biological substances; Z79.82 Long term (current) use of aspirin; Z79.51 Long term (current) use of inhaled steroids; Z79.899 Other long term (current) drug therapy; Z79.4 Long term (current) use of insulin; Z90.710 Acquired absence of both cervix and uterus; Z91.19 Patient's noncompliance with other medical treatment and regimen; Z99.81 Dependence on supplemental oxygen
CPT/HCPCS: 36415; 36416; 71045; 80048; 80053; 82805; 83735; 83880; 84132; 84484; 85025; 93005; 93010; 94640; 94660; 94760; 96374; J0456; J1815; J1940; J2920; J3490; J7050; J7620; Q0163

== ENCOUNTER 2020-10-11 03:48 | Emergency (ER) | payer MEDICARE, MEDICAID | END 2020-10-11 06:40 | disposition home or self-care (01) | LOC: ERS 03:48 | DX: E11.649 Type 2 diabetes mellitus with hypoglycemia without coma (principal); E78.00 Pure hypercholesterolemia, unspecified; I13.0 Hypertensive heart and chronic kidney disease with heart failure and stage 1 through stage 4 chronic kidney disease, or unspecified chronic kidney disease; I50.9 Heart failure, unspecified; N18.9 Chronic kidney disease, unspecified; E11.22 Type 2 diabetes mellitus with diabetic chronic kidney disease | CPT/HCPCS: 36416; 94760 ==

== ENCOUNTER 2022-08-31 10:57 | Inpatient (IN) | payer OTHER, MEDICAID ==
[2022-08-31] MEDS ORDERED: Metoprolol Tartrate 50 MG TAB ONE (11:56)
[2022-08-31] MEDS ORDERED: hydrALAZINE 25 MG TAB ONE (11:56)
[2022-08-31 14:07] LABS: #Lymphocytes 1.3 thou/uL (1.20-3.40); #Monocytes 0.5 thou/uL (0.11-0.59); #Neutrophils 9.9 thou/uL (1.40-6.50); %Eosinophils 0.4 % (0.0-10.0); %Lymphocytes 11.3 % (21.0-51.0); %Monocytes 3.9 % (0.0-10.0); %Neutrophils 84.4 % (42.0-75.0); Hemoglobin 10.8 g/dL (12.0-16.0); Mean Corpuscular HGB CONC 33.2 g/dL (32.0-36.0); Mean Corpuscular Volume 96.3 fl (78.0-98.0); Mean Platelet Volume 7.7 fL (7.4-10.4); Platelet Count 284 10x3/uL (130-400); RBC Distribution Width 14.6 % (11.5-14.5); Red Blood Cell (RBC) Count 3.39 mill/uL (4.20-5.40); White Blood Cell (WBC) Count 11.7 10x3/uL (4.8-10.8)
[2022-08-31 14:15] LABS: Bacteria/HPF 4+ HPF (None Seen); Bilirubin Negative (Negative); Blood, Urine Negative (Negative); Clarity Turbid (Clear); Glucose, Urine (Dipstick) 300 mg/dL (Negative); Ketone, Urine Negative (Negative); Leukocyte Negative Leu/uL (Negative); Nitrite Negative (Negative); Protein, Urine (Dipstick) 30 mg/dL (Neg-Trace); RBC/HPF 0-3 HPF (0-3); Specific Gravity, Urine 1.011 (1.002-1.036); Squamous Epithelial 21-50 HPF (0-3); Urobilinogen Normal mg/dL (Less than 2); WBC/HPF 0-3 HPF (0-3); pH, Urine 7.5 (5.0-9.0)
[2022-08-31 14:30] LABS: ALT (SGPT) 34 U/L (8-55); AST (SGOT) 23 U/L (5-34); Albumin 3.5 g/dL (3.4-4.8); Alkaline Phosphatase 123 U/L (40-110); Anion Gap 16 mmol/L (10-20); BUN (Urea Nitrogen) 44 mg/dL (9.8-20.1); Bilirubin, Total 0.6 mg/dL (0.2-1.2); Calc. Creatinine Clearance 0 mL/min (70-130); Carbon Dioxide 27 mmol/L (23-31); Chloride 103 mmol/L (98-107); Estimated GFR 24; Globulin 3.8 g/dL (2.4-3.5); Glucose 78 mg/dL (83-110); Lipase 30 U/L (8-78); Potassium 4.9 mmol/L (3.5-5.1); Protein, Total 7.3 g/dL (5.8-8.1); Sodium 141 mmol/L (136-145)
[2022-08-31 14:31] LABS: Magnesium 2.2 mg/dL (1.6-2.6)
[2022-08-31] MEDS ORDERED: Magnesium 2 GM/50 ML BAG (IN WATER) ONE (14:35)
[2022-08-31] MEDS ORDERED: cefTRIAXone\\ROCEPHIN 1 GM VIAL ONE (15:43)
[2022-08-31] MEDS ORDERED: Dextrose 5% in Water 1,000 ML IV PRN (16:30)
[2022-08-31] MEDS ORDERED: Dextrose 50% Abboject 50 ML SYRINGE SLOW IVP PRN (16:30)
[2022-08-31] MEDS ORDERED: Insulin Regular 300 UNITS/3 ML VIAL SC PRN (16:30)
[2022-08-31] MEDS ORDERED: Calcium Carbonate 500 MG ChewTAB PO PRN (16:35)
[2022-08-31] MEDS ORDERED: Ondansetron ODT 4 MG TAB PO PRN (16:35)
[2022-08-31] MEDS ORDERED: Acetaminophen 325 MG TAB PO PRN ×2 (16:35→16:39)
[2022-08-31] MEDS ORDERED: Ondansetron PF 4 MG/2 ML Vial IVP PRN (16:35)
[2022-08-31] MEDS ORDERED: NIFEdipine XL 30 MG TAB PO SCH (16:45)
[2022-08-31] MEDS ORDERED: NIFEdipine XL 30 MG TAB PO PRN (16:48)
[2022-08-31] MEDS ORDERED: Fentanyl 100 MCG/2 ML VIAL ONE (17:35)
[2022-08-31] MEDS ORDERED: Labetalol HCl 100 MG/20 ML VIAL SLOW IVP PRN (17:58)
[2022-08-31] MEDS ORDERED: Fentanyl 100 MCG/2 ML VIAL SLOW IVP PRN (18:00)
[2022-08-31 18:29] LABS: Troponin I Less than 0.010 ng/mL (< 0.028)
[2022-08-31 20:21] VITALS: BMI 46.8
[2022-08-31 21:16] LABS: Troponin I Less than 0.010 ng/mL (< 0.028)
[2022-08-31] MEDS: Acetaminophen 325 MG TAB PO SCH (21:17)
[2022-08-31] MEDS: traMADol HCl 50 MG TAB PO SCH (21:18)
[2022-08-31] MEDS: Gabapentin 100 MG CAP PO SCH (21:18)
[2022-08-31] MEDS: Multivit, Therapeutic 1 TAB PO SCH (21:22)
[2022-08-31] MEDS: Cholecalciferol 1,000 UNITS (25 MCG) TAB PO SCH (21:22)
[2022-08-31] MEDS: Senokot S 8.6-50 MG TAB PO SCH (21:22)
[2022-08-31] MEDS: Cyanocobalamin (Vitamin B-12) 1,000 MCG TAB PO SCH (21:22)
[2022-08-31] MEDS: Ipratropium/Albuterol 3 ML NEB NEB SCH ×2 (21:52)
[2022-09-01] MEDS: Ipratropium/Albuterol 3 ML NEB NEB SCH ×6 (02:14→22:34)
[2022-09-01 04:52] LABS: #Lymphocytes 1.4 thou/uL (1.20-3.40); #Monocytes 0.9 thou/uL (0.11-0.59); %Basophils 0.1 % (0.0-1.0); %Eosinophils 0.1 % (0.0-10.0); %Lymphocytes 13.2 % (21.0-51.0); %Monocytes 8.7 % (0.0-10.0); %Neutrophils 77.8 % (42.0-75.0); Mean Corpuscular HGB CONC 31.2 g/dL (32.0-36.0); Mean Corpuscular Hemoglobin 30.4 pg (27.0-31.0); Mean Corpuscular Volume 97.6 fl (78.0-98.0); Mean Platelet Volume 7.8 fL (7.4-10.4); Platelet Count 286 10x3/uL (130-400); RBC Distribution Width 14.6 % (11.5-14.5); Red Blood Cell (RBC) Count 3.61 mill/uL (4.20-5.40); White Blood Cell (WBC) Count 10.3 10x3/uL (4.8-10.8)
[2022-09-01 04:57] LABS: INR-International Normal Ratio 1.1; PTT 30.7 sec (22.9-36.1); Prothrombin Time 14.4 sec (12.0-14.7)
[2022-09-01 05:11] LABS: ALT (SGPT) 35 U/L (8-55); AST (SGOT) 29 U/L (5-34); Albumin 3.4 g/dL (3.4-4.8); Alkaline Phosphatase 120 U/L (40-110); Anion Gap 19 mmol/L (10-20); BUN (Urea Nitrogen) 42 mg/dL (9.8-20.1); Bilirubin, Total 0.5 mg/dL (0.2-1.2); Calc. Creatinine Clearance 44 mL/min (70-130); Calcium 9.3 mg/dL (7.8-10.44); Carbon Dioxide 22 mmol/L (23-31); Chloride 105 mmol/L (98-107); Estimated GFR 25; Globulin 3.7 g/dL (2.4-3.5); Glucose 110 mg/dL (83-110); Magnesium 2.6 mg/dL (1.6-2.6); Potassium 4.6 mmol/L (3.5-5.1); Protein, Total 7.1 g/dL (5.8-8.1); Sodium 141 mmol/L (136-145)
[2022-09-01] MEDS: Furosemide 40 MG/4 ML VIAL SLOW IVP SCH ×2 (06:22→14:34)
[2022-09-01] MEDS: Acetaminophen 325 MG TAB PO SCH ×3 (10:01→22:03)
[2022-09-01] MEDS: NIFEdipine XL 60 MG TAB PO SCH (10:02)
[2022-09-01] MEDS: Senokot S 8.6-50 MG TAB PO SCH ×2 (10:03→22:02)
[2022-09-01] MEDS: traMADol HCl 50 MG TAB PO SCH ×2 (10:03→22:05)
[2022-09-01] MEDS: Gabapentin 100 MG CAP PO SCH ×2 (10:05→22:05)
[2022-09-01] MEDS: Insulin Regular 300 UNITS/3 ML VIAL SC PRN (14:33)
[2022-09-01] MEDS: Heparin 5,000 UNITS/ML VIAL SC SCH ×2 (15:46→22:02)
[2022-09-01] MEDS: Multivit, Therapeutic 1 TAB PO SCH (22:03)
[2022-09-01] MEDS: Cyanocobalamin (Vitamin B-12) 1,000 MCG TAB PO SCH (22:03)
[2022-09-01] MEDS: Cholecalciferol 1,000 UNITS (25 MCG) TAB PO SCH (22:04)
[2022-09-01] MEDS: Insulin Glargine 30 UNITS/0.3 ML VIAL SC SCH (22:06)
[2022-09-01] MEDS: Nystatin Powder 15 GM BOT TOP SCH (22:19)
[2022-09-02] MEDS: Ipratropium/Albuterol 3 ML NEB NEB SCH ×6 (02:10→22:09)
[2022-09-02 04:53] LABS: #Lymphocytes 1.1 thou/uL (1.20-3.40); #Monocytes 0.8 thou/uL (0.11-0.59); #Neutrophils 7.4 thou/uL (1.40-6.50); %Basophils 0.1 % (0.0-1.0); %Eosinophils 0.3 % (0.0-10.0); %Lymphocytes 11.3 % (21.0-51.0); %Monocytes 8.9 % (0.0-10.0); %Neutrophils 79.4 % (42.0-75.0); Mean Corpuscular HGB CONC 32.1 g/dL (32.0-36.0); Mean Corpuscular Hemoglobin 31.2 pg (27.0-31.0); Mean Corpuscular Volume 97.4 fl (78.0-98.0); Mean Platelet Volume 7.8 fL (7.4-10.4); Platelet Count 266 10x3/uL (130-400); RBC Distribution Width 14.4 % (11.5-14.5); Red Blood Cell (RBC) Count 3.51 mill/uL (4.20-5.40); White Blood Cell (WBC) Count 9.3 10x3/uL (4.8-10.8)
[2022-09-02 05:24] LABS: Anion Gap 16 mmol/L (10-20); BUN (Urea Nitrogen) 48 mg/dL (9.8-20.1); Calc. Creatinine Clearance 44 mL/min (70-130); Calcium 9.3 mg/dL (7.8-10.44); Carbon Dioxide 24 mmol/L (23-31); Chloride 104 mmol/L (98-107); Estimated GFR 24; Glucose 192 mg/dL (83-110); Magnesium 2.5 mg/dL (1.6-2.6); Potassium 4.3 mmol/L (3.5-5.1); Sodium 140 mmol/L (136-145)
[2022-09-02] MEDS: Furosemide 40 MG/4 ML VIAL SLOW IVP SCH ×2 (06:58→14:42)
[2022-09-02] MEDS: NIFEdipine XL 60 MG TAB PO SCH (09:40)
[2022-09-02] MEDS: Senokot S 8.6-50 MG TAB PO SCH ×2 (09:41→21:55)
[2022-09-02] MEDS: traMADol HCl 50 MG TAB PO SCH ×2 (09:41→22:00)
[2022-09-02] MEDS: Gabapentin 100 MG CAP PO SCH ×2 (09:42→21:44)
[2022-09-02] MEDS: Heparin 5,000 UNITS/ML VIAL SC SCH ×3 (09:43→21:46)
[2022-09-02] MEDS: Nystatin Powder 15 GM BOT TOP SCH ×2 (09:43→22:01)
[2022-09-02] MEDS: Acetaminophen 325 MG TAB PO SCH ×3 (09:44→21:46)
[2022-09-02] MEDS: Insulin Regular 300 UNITS/3 ML VIAL SC PRN ×2 (12:31→17:25)
[2022-09-02] MEDS: Cholecalciferol 1,000 UNITS (25 MCG) TAB PO SCH (21:43)
[2022-09-02] MEDS: Cyanocobalamin (Vitamin B-12) 1,000 MCG TAB PO SCH (21:44)
[2022-09-02] MEDS: Insulin Glargine 30 UNITS/0.3 ML VIAL SC SCH (21:53)
[2022-09-02] MEDS: Multivit, Therapeutic 1 TAB PO SCH (21:55)
[2022-09-03] MEDS: Ipratropium/Albuterol 3 ML NEB NEB SCH ×5 (02:10→18:45)
[2022-09-03 09:04] LABS: Actual Bicarbonate (HCO3v) 31 mEq/L (22-28); Base Excess 4.3 mEq/L (-2.0 to +3.0); Calcium, Ionized (venous) 1.12 mmol/L (1.16-1.32); Chloride (VBG) 101 mmol/L (98-106); Hemoglobin (Hb) 13.4 g/dL (11.7-16.1); pH (venous) 7.37 (7.32-7.43)
[2022-09-03 09:10] LABS: #Eosinphils 0.2 thou/uL (0.0-0.7); #Lymphocytes 1.5 thou/uL (1.20-3.40); #Neutrophils 5.3 thou/uL (1.40-6.50); %Basophils 0.2 % (0.0-1.0); %Eosinophils 2.5 % (0.0-10.0); %Lymphocytes 19.1 % (21.0-51.0); %Monocytes 12.9 % (0.0-10.0); %Neutrophils 65.4 % (42.0-75.0); Hemoglobin 12.2 g/dL (12.0-16.0); Mean Corpuscular HGB CONC 32.1 g/dL (32.0-36.0); Mean Corpuscular Hemoglobin 31.5 pg (27.0-31.0); Mean Corpuscular Volume 98.1 fl (78.0-98.0); Mean Platelet Volume 7.6 fL (7.4-10.4); Platelet Count 305 10x3/uL (130-400); RBC Distribution Width 14.2 % (11.5-14.5); Red Blood Cell (RBC) Count 3.86 mill/uL (4.20-5.40); White Blood Cell (WBC) Count 8.1 10x3/uL (4.8-10.8)
[2022-09-03] MEDS: Gabapentin 100 MG CAP PO SCH (09:26)
[2022-09-03] MEDS: Senokot S 8.6-50 MG TAB PO SCH ×2 (09:26→21:15)
[2022-09-03] MEDS: Acetaminophen 325 MG TAB PO SCH ×3 (09:27→21:14)
[2022-09-03] MEDS: Heparin 5,000 UNITS/ML VIAL SC SCH ×3 (09:27→21:13)
[2022-09-03] MEDS: NIFEdipine XL 30 MG TAB PO SCH (09:30)
[2022-09-03] MEDS: traMADol HCl 50 MG TAB PO SCH ×2 (09:39→21:16)
[2022-09-03 10:08] LABS: Anion Gap 17 mmol/L (10-20); BUN (Urea Nitrogen) 45 mg/dL (9.8-20.1); Calc. Creatinine Clearance 48 mL/min (70-130); Calcium 9.5 mg/dL (7.8-10.44); Carbon Dioxide 27 mmol/L (23-31); Chloride 101 mmol/L (98-107); Estimated GFR 27; Glucose 129 mg/dL (83-110); Potassium 4.2 mmol/L (3.5-5.1); Sodium 141 mmol/L (136-145)
[2022-09-03] MEDS: Nystatin Powder 15 GM BOT TOP SCH ×2 (15:46→21:17)
[2022-09-03] MEDS: traMADol HCl 50 MG TAB PO PRN (15:49)
[2022-09-03] MEDS: Insulin Regular 300 UNITS/3 ML VIAL SC PRN (17:53)
[2022-09-03] MEDS: Insulin Glargine 30 UNITS/0.3 ML VIAL SC SCH (21:14)
[2022-09-03] MEDS: Multivit, Therapeutic 1 TAB PO SCH (21:15)
[2022-09-03] MEDS: Cholecalciferol 1,000 UNITS (25 MCG) TAB PO SCH (21:15)
[2022-09-03] MEDS: Cyanocobalamin (Vitamin B-12) 1,000 MCG TAB PO SCH (21:15)
[2022-09-04] MEDS: Ipratropium/Albuterol 3 ML NEB NEB SCH ×7 (00:01→23:37)
[2022-09-04 04:51] LABS: #Eosinphils 0.3 thou/uL (0.0-0.7); #Lymphocytes 1.6 thou/uL (1.20-3.40); #Monocytes 1.2 thou/uL (0.11-0.59); #Neutrophils 4.9 thou/uL (1.40-6.50); %Basophils 0.4 % (0.0-1.0); %Eosinophils 3.7 % (0.0-10.0); %Lymphocytes 20.3 % (21.0-51.0); %Monocytes 14.9 % (0.0-10.0); %Neutrophils 60.7 % (42.0-75.0); Mean Corpuscular HGB CONC 31.4 g/dL (32.0-36.0); Mean Corpuscular Hemoglobin 30.6 pg (27.0-31.0); Mean Corpuscular Volume 97.7 fl (78.0-98.0); Mean Platelet Volume 7.9 fL (7.4-10.4); Platelet Count 282 10x3/uL (130-400); RBC Distribution Width 14.3 % (11.5-14.5); Red Blood Cell (RBC) Count 3.91 mill/uL (4.20-5.40)
[2022-09-04] MEDS: Lidocaine 5% Patch TD SCH (05:10)
[2022-09-04 05:18] LABS: Anion Gap 11 mmol/L (10-20); BUN (Urea Nitrogen) 47 mg/dL (9.8-20.1); Calc. Creatinine Clearance 52 mL/min (70-130); Calcium 9.3 mg/dL (7.8-10.44); Carbon Dioxide 30 mmol/L (23-31); Cardiac Risk 2.7 (Less than 4.5); Chloride 101 mmol/L (98-107); Cholesterol 205 mg/dl (< 200 Desired); Estimated GFR 30; Glucose 126 mg/dL (83-110); HDL Cholesterol 76 mg/dL (>60 Neg Risk); LDL Cholesterol, Calculated 112 mg/dL; Potassium 4.2 mmol/L (3.5-5.1); Sodium 138 mmol/L (136-145); Triglycerides 83 mg/dL (Less than 150)
[2022-09-04] MEDS: Acetaminophen 325 MG TAB PO SCH ×4 (09:37→20:35)
[2022-09-04] MEDS: NIFEdipine XL 30 MG TAB PO SCH (09:38)
[2022-09-04] MEDS: traMADol HCl 50 MG TAB PO SCH (09:38)
[2022-09-04] MEDS: Senokot S 8.6-50 MG TAB PO SCH ×2 (09:44→20:34)
[2022-09-04] MEDS: Nystatin Powder 15 GM BOT TOP SCH ×2 (09:44→20:36)
[2022-09-04] MEDS: Heparin 5,000 UNITS/ML VIAL SC SCH ×3 (09:45→20:33)
[2022-09-04 12:13] LABS: Actual Bicarbonate (HCO3a) 32.6 mEq/L (22-28); Base Excess (BEa) 6.5 mEq/L (-2.0 to +3.0); CO2 Tension 53.1 mmHg (35.0-45.0); Calcium, Ionized (arterial) 1.18 mmol/L (1.12-1.30); Carboxyhemoglobin (COHb) 0.9 gm% (0.0-3.0); Hemoglobin (Hb) 12.7 g/dL (12.0-16.0); O2 Tension (PaO2), arterial 67.9 mmHg (> 70.0); pH, Arterial 7.41 (7.35-7.45)
[2022-09-04 12:16] LABS: Puncture Site LRA
[2022-09-04] MEDS: Insulin Glargine 30 UNITS/0.3 ML VIAL SC SCH (20:33)
[2022-09-04] MEDS: Cholecalciferol 1,000 UNITS (25 MCG) TAB PO SCH (20:34)
[2022-09-04] MEDS: Multivit, Therapeutic 1 TAB PO SCH (20:35)
[2022-09-04] MEDS: Cyanocobalamin (Vitamin B-12) 1,000 MCG TAB PO SCH (20:36)
[2022-09-05] MEDS: Lidocaine 5% Patch TD SCH (00:33)
[2022-09-05] MEDS: Ipratropium/Albuterol 3 ML NEB NEB SCH ×6 (03:26→22:28)
[2022-09-05 04:34] LABS: #Eosinphils 0.4 thou/uL (0.0-0.7); #Lymphocytes 1.4 thou/uL (1.20-3.40); #Monocytes 0.9 thou/uL (0.11-0.59); #Neutrophils 5.5 thou/uL (1.40-6.50); %Basophils 0.3 % (0.0-1.0); %Eosinophils 4.3 % (0.0-10.0); %Lymphocytes 16.9 % (21.0-51.0); %Monocytes 11.4 % (0.0-10.0); %Neutrophils 67.2 % (42.0-75.0); Hemoglobin 12.1 g/dL (12.0-16.0); Mean Corpuscular HGB CONC 32.5 g/dL (32.0-36.0); Mean Corpuscular Hemoglobin 31.6 pg (27.0-31.0); Mean Corpuscular Volume 97.3 fl (78.0-98.0); Mean Platelet Volume 7.8 fL (7.4-10.4); Platelet Count 289 10x3/uL (130-400); RBC Distribution Width 14.3 % (11.5-14.5); Red Blood Cell (RBC) Count 3.82 mill/uL (4.20-5.40); White Blood Cell (WBC) Count 8.2 10x3/uL (4.8-10.8)
[2022-09-05 04:58] LABS: ALT (SGPT) 28 U/L (8-55); AST (SGOT) 23 U/L (5-34); Albumin 3.5 g/dL (3.4-4.8); Alkaline Phosphatase 112 U/L (40-110); Anion Gap 14 mmol/L (10-20); BUN (Urea Nitrogen) 47 mg/dL (9.8-20.1); Bilirubin, Total 0.5 mg/dL (0.2-1.2); Calc. Creatinine Clearance 52 mL/min (70-130); Calcium 9.8 mg/dL (7.8-10.44); Carbon Dioxide 29 mmol/L (23-31); Chloride 104 mmol/L (98-107); Estimated GFR 30; Globulin 3.9 g/dL (2.4-3.5); Glucose 116 mg/dL (83-110); Magnesium 2.6 mg/dL (1.6-2.6); Potassium 4.4 mmol/L (3.5-5.1); Protein, Total 7.4 g/dL (5.8-8.1); Sodium 143 mmol/L (136-145)
[2022-09-05] MEDS ORDERED: Electrolyte Replacement Protocol 1 EACH FS SCH (08:30)
[2022-09-05] MEDS ORDERED: Furosemide 20 MG TAB PO SCH (09:00)
[2022-09-05] MEDS: Acetaminophen 325 MG TAB PO SCH ×3 (09:18→21:28)
[2022-09-05] MEDS: Transdermal Patch Removal TOP SCH ×3 (09:18→12:29)
[2022-09-05] MEDS: NIFEdipine XL 30 MG TAB PO SCH (09:19)
[2022-09-05] MEDS: Furosemide 40 MG TAB PO SCH ×2 (09:19→15:12)
[2022-09-05] MEDS: Senokot S 8.6-50 MG TAB PO SCH ×2 (09:19→21:28)
[2022-09-05] MEDS: Heparin 5,000 UNITS/ML VIAL SC SCH ×3 (09:19→21:30)
[2022-09-05] MEDS: Nystatin Powder 15 GM BOT TOP SCH ×2 (10:30→21:30)
[2022-09-05] MEDS: Multivit, Therapeutic 1 TAB PO SCH (21:29)
[2022-09-05] MEDS: Cyanocobalamin (Vitamin B-12) 1,000 MCG TAB PO SCH (21:29)
[2022-09-05] MEDS: Insulin Glargine 30 UNITS/0.3 ML VIAL SC SCH (21:35)
[2022-09-05] MEDS: Cholecalciferol 1,000 UNITS (25 MCG) TAB PO SCH (21:35)
[2022-09-06] MEDS: Lidocaine 5% Patch TD SCH ×2 (00:30→23:29)
[2022-09-06] MEDS: Ipratropium/Albuterol 3 ML NEB NEB SCH ×6 (02:10→22:42)
[2022-09-06 10:04] LABS: Anion Gap 19 mmol/L (10-20); BUN (Urea Nitrogen) 42 mg/dL (9.8-20.1); Calc. Creatinine Clearance 52 mL/min (70-130); Calcium 9.2 mg/dL (7.8-10.44); Carbon Dioxide 18 mmol/L (23-31); Chloride 107 mmol/L (98-107); Estimated GFR 32; Glucose 115 mg/dL (83-110); Potassium 4.5 mmol/L (3.5-5.1); Sodium 139 mmol/L (136-145)
[2022-09-06] MEDS: traMADol HCl 50 MG TAB PO PRN (10:08)
[2022-09-06] MEDS: Senokot S 8.6-50 MG TAB PO SCH ×2 (10:11→22:05)
[2022-09-06] MEDS: Acetaminophen 325 MG TAB PO SCH ×3 (10:11→22:16)
[2022-09-06] MEDS: NIFEdipine XL 30 MG TAB PO SCH (10:12)
[2022-09-06] MEDS: Furosemide 40 MG TAB PO SCH ×2 (10:13→17:06)
[2022-09-06] MEDS: Heparin 5,000 UNITS/ML VIAL SC SCH ×3 (10:13→22:04)
[2022-09-06] MEDS: Nystatin Powder 15 GM BOT TOP SCH ×2 (10:15→22:05)
[2022-09-06] MEDS: Transdermal Patch Removal TOP SCH (10:25)
[2022-09-06] MEDS: Cyanocobalamin (Vitamin B-12) 1,000 MCG TAB PO SCH (22:04)
[2022-09-06] MEDS: Multivit, Therapeutic 1 TAB PO SCH (22:05)
[2022-09-06] MEDS: Insulin Glargine 30 UNITS/0.3 ML VIAL SC SCH (22:05)
[2022-09-06] MEDS: Polyethylene Glycol 3350 17 GM Packet PO SCH (22:06)
[2022-09-06] MEDS: Cholecalciferol 1,000 UNITS (25 MCG) TAB PO SCH (23:29)
[2022-09-07] MEDS: Ipratropium/Albuterol 3 ML NEB NEB SCH ×2 (02:19→10:31)
[2022-09-07 04:14] LABS: #Basophils 0.1 thou/uL (0.0-0.2); #Eosinphils 0.2 thou/uL (0.0-0.7); #Monocytes 1.3 thou/uL (0.11-0.59); #Neutrophils 5.4 thou/uL (1.40-6.50); %Eosinophils 1.9 % (0.0-10.0); %Lymphocytes 21.9 % (21.0-51.0); %Monocytes 14.8 % (0.0-10.0); %Neutrophils 60.4 % (42.0-75.0); Hemoglobin 12.1 g/dL (12.0-16.0); Mean Corpuscular HGB CONC 31.5 g/dL (32.0-36.0); Mean Corpuscular Hemoglobin 31.4 pg (27.0-31.0); Mean Corpuscular Volume 99.6 fl (78.0-98.0); Mean Platelet Volume 8.2 fL (7.4-10.4); Platelet Count 272 10x3/uL (130-400); RBC Distribution Width 14.1 % (11.5-14.5); Red Blood Cell (RBC) Count 3.85 mill/uL (4.20-5.40); White Blood Cell (WBC) Count 8.9 10x3/uL (4.8-10.8)
[2022-09-07 04:26] LABS: Anion Gap 16 mmol/L (10-20); BUN (Urea Nitrogen) 40 mg/dL (9.8-20.1); Calc. Creatinine Clearance 50 mL/min (70-130); Calcium 9.1 mg/dL (7.8-10.44); Carbon Dioxide 24 mmol/L (23-31); Chloride 103 mmol/L (98-107); Estimated GFR 31; Glucose 109 mg/dL (83-110); Potassium 4.7 mmol/L (3.5-5.1); Sodium 138 mmol/L (136-145)
[2022-09-07] MEDS: Rivaroxaban 15 MG TAB PO SCH (06:42)
[2022-09-07] MEDS ORDERED: Ipratropium/Albuterol 3 ML NEB NEB PRN (08:23)
[2022-09-07] MEDS: NIFEdipine XL 30 MG TAB PO SCH (09:15)
[2022-09-07] MEDS: Furosemide 40 MG TAB PO SCH ×2 (09:15→15:07)
[2022-09-07] MEDS: Acetaminophen 325 MG TAB PO SCH ×3 (09:15→20:29)
[2022-09-07] MEDS: Senokot S 8.6-50 MG TAB PO SCH ×2 (09:16→20:30)
[2022-09-07] MEDS: Dronedarone HCl 400 MG TAB PO SCH ×2 (09:16→17:23)
[2022-09-07] MEDS: Nystatin Powder 15 GM BOT TOP SCH ×2 (09:21→20:47)
[2022-09-07] MEDS: Transdermal Patch Removal TOP SCH (15:08)
[2022-09-07] MEDS: traMADol HCl 50 MG TAB PO PRN (17:23)
[2022-09-07] MEDS: Multivit, Therapeutic 1 TAB PO SCH (20:30)
[2022-09-07] MEDS: Insulin Glargine 30 UNITS/0.3 ML VIAL SC SCH (20:30)
[2022-09-07] MEDS: Cyanocobalamin (Vitamin B-12) 1,000 MCG TAB PO SCH (20:30)
[2022-09-07] MEDS: Polyethylene Glycol 3350 17 GM Packet PO SCH (20:31)
[2022-09-07] MEDS: Cholecalciferol 1,000 UNITS (25 MCG) TAB PO SCH (20:44)
[2022-09-07] MEDS: Lidocaine 5% Patch TD SCH (23:39)
[2022-09-08] MEDS: Rivaroxaban 15 MG TAB PO SCH (06:00)
[2022-09-08] MEDS: Dronedarone HCl 400 MG TAB PO SCH ×2 (10:44→16:03)
[2022-09-08] MEDS: Senokot S 8.6-50 MG TAB PO SCH ×2 (10:46→20:06)
[2022-09-08] MEDS: Acetaminophen 325 MG TAB PO SCH ×3 (10:46→20:07)
[2022-09-08] MEDS: NIFEdipine XL 30 MG TAB PO SCH (10:47)
[2022-09-08] MEDS: Furosemide 40 MG TAB PO SCH ×2 (10:49→15:59)
[2022-09-08] MEDS: Nystatin Powder 15 GM BOT TOP SCH ×2 (10:50→20:08)
[2022-09-08] MEDS: Transdermal Patch Removal TOP SCH (10:53)
[2022-09-08] MEDS: Cyanocobalamin (Vitamin B-12) 1,000 MCG TAB PO SCH (20:06)
[2022-09-08] MEDS: Cholecalciferol 1,000 UNITS (25 MCG) TAB PO SCH (20:06)
[2022-09-08] MEDS: Multivit, Therapeutic 1 TAB PO SCH (20:07)
[2022-09-08] MEDS: Insulin Glargine 30 UNITS/0.3 ML VIAL SC SCH (20:07)
[2022-09-08] MEDS: Polyethylene Glycol 3350 17 GM Packet PO SCH (20:08)
[2022-09-08] MEDS: traMADol HCl 50 MG TAB PO PRN (23:02)
[2022-09-08] MEDS: Lidocaine 5% Patch TD SCH (23:04)
[2022-09-09 04:52] LABS: #Eosinphils 0.2 thou/uL (0.0-0.7); #Neutrophils 4.3 thou/uL (1.40-6.50); %Basophils 0.3 % (0.0-1.0); %Eosinophils 2.8 % (0.0-10.0); %Lymphocytes 26.6 % (21.0-51.0); %Monocytes 13.7 % (0.0-10.0); %Neutrophils 56.6 % (42.0-75.0); Hemoglobin 12.5 g/dL (12.0-16.0); Mean Corpuscular HGB CONC 32.7 g/dL (32.0-36.0); Mean Corpuscular Hemoglobin 31.9 pg (27.0-31.0); Mean Corpuscular Volume 97.4 fl (78.0-98.0); Mean Platelet Volume 8.3 fL (7.4-10.4); Platelet Count 264 10x3/uL (130-400); RBC Distribution Width 13.8 % (11.5-14.5); Red Blood Cell (RBC) Count 3.92 mill/uL (4.20-5.40); White Blood Cell (WBC) Count 7.6 10x3/uL (4.8-10.8)
[2022-09-09 05:09] LABS: Anion Gap 15 mmol/L (10-20); BUN (Urea Nitrogen) 46 mg/dL (9.8-20.1); Calc. Creatinine Clearance 43 mL/min (70-130); Calcium 9.2 mg/dL (7.8-10.44); Carbon Dioxide 25 mmol/L (23-31); Chloride 101 mmol/L (98-107); Estimated GFR 26; Glucose 97 mg/dL (83-110); Potassium 4.8 mmol/L (3.5-5.1); Sodium 136 mmol/L (136-145)
[2022-09-09] MEDS: Rivaroxaban 15 MG TAB PO SCH (06:08)
[2022-09-09] MEDS: NIFEdipine XL 30 MG TAB PO SCH (08:55)
[2022-09-09] MEDS: Acetaminophen 325 MG TAB PO SCH ×3 (08:56→22:03)
[2022-09-09] MEDS: Furosemide 40 MG TAB PO SCH ×2 (08:56→12:56)
[2022-09-09] MEDS: Dronedarone HCl 400 MG TAB PO SCH ×2 (08:56→17:37)
[2022-09-09] MEDS: Nystatin Powder 15 GM BOT TOP SCH ×2 (08:57→22:04)
[2022-09-09] MEDS: Senokot S 8.6-50 MG TAB PO SCH ×2 (08:57→22:06)
[2022-09-09] MEDS: traMADol HCl 50 MG TAB PO PRN (12:55)
[2022-09-09] MEDS: Transdermal Patch Removal TOP SCH (12:56)
[2022-09-09] MEDS ORDERED: Preparation H Suppository PR PRN (13:12)
[2022-09-09] MEDS: Cyanocobalamin (Vitamin B-12) 1,000 MCG TAB PO SCH (22:03)
[2022-09-09] MEDS: Cholecalciferol 1,000 UNITS (25 MCG) TAB PO SCH (22:03)
[2022-09-09] MEDS: Multivit, Therapeutic 1 TAB PO SCH (22:03)
[2022-09-09] MEDS: Insulin Glargine 30 UNITS/0.3 ML VIAL SC SCH (22:04)
[2022-09-09] MEDS: Polyethylene Glycol 3350 17 GM Packet PO SCH (22:05)
[2022-09-09] MEDS: Lidocaine 5% Patch TD SCH (22:06)
[2022-09-10] MEDS: Rivaroxaban 15 MG TAB PO SCH (05:36)
[2022-09-10] MEDS: NIFEdipine XL 30 MG TAB PO SCH (11:48)
[2022-09-10] MEDS: Acetaminophen 325 MG TAB PO SCH ×3 (11:48→21:07)
[2022-09-10] MEDS: Dronedarone HCl 400 MG TAB PO SCH ×2 (11:49→18:11)
[2022-09-10] MEDS: Furosemide 40 MG TAB PO SCH ×2 (11:49→15:54)
[2022-09-10] MEDS: Nystatin Powder 15 GM BOT TOP SCH ×2 (11:49→21:09)
[2022-09-10] MEDS: Senokot S 8.6-50 MG TAB PO SCH ×2 (11:50→21:09)
[2022-09-10] MEDS: Transdermal Patch Removal TOP SCH (11:50)
[2022-09-10] MEDS: Cholecalciferol 1,000 UNITS (25 MCG) TAB PO SCH (21:07)
[2022-09-10] MEDS: Cyanocobalamin (Vitamin B-12) 1,000 MCG TAB PO SCH (21:08)
[2022-09-10] MEDS: Multivit, Therapeutic 1 TAB PO SCH (21:08)
[2022-09-10] MEDS: Polyethylene Glycol 3350 17 GM Packet PO SCH (21:08)
[2022-09-10] MEDS: Insulin Glargine 30 UNITS/0.3 ML VIAL SC SCH (21:08)
[2022-09-10] MEDS: traMADol HCl 50 MG TAB PO PRN (21:15)
[2022-09-11] MEDS: Lidocaine 5% Patch TD SCH (00:40)
[2022-09-11 01:41] LABS: Bacteria/HPF 4+ HPF (None Seen); Bilirubin Negative (Negative); Blood, Urine Negative (Negative); CAUTI Indications for Culture Dysuria,urgency,freq; Clarity Turbid (Clear); Glucose, Urine (Dipstick) Normal (Negative); Ketone, Urine Negative (Negative); Leukocyte 500 Leu/uL (Negative); Nitrite Negative (Negative); Protein, Urine (Dipstick) Negative (Neg-Trace); RBC/HPF 0-3 HPF (0-3); Specific Gravity, Urine 1.016 (1.002-1.036); Squamous Epithelial 0-3 HPF (0-3); Urobilinogen Normal mg/dL (Less than 2); WBC/HPF Greater than 50 HPF (0-3)
[2022-09-11 01:44] LABS: Urine Culture Reflex Yes Yes
[2022-09-11] MEDS: Rivaroxaban 15 MG TAB PO SCH (05:12)
[2022-09-11] MEDS: NIFEdipine XL 30 MG TAB PO SCH (09:20)
[2022-09-11] MEDS: Dronedarone HCl 400 MG TAB PO SCH (09:21)
[2022-09-11] MEDS: Senokot S 8.6-50 MG TAB PO SCH (09:21)
[2022-09-11] MEDS: Acetaminophen 325 MG TAB PO SCH (09:22)
[2022-09-11] MEDS: Furosemide 40 MG TAB PO SCH (09:25)
[2022-09-11] MEDS: Nystatin Powder 15 GM BOT TOP SCH (09:26)
[2022-09-11] MEDS ORDERED: Cefdinir 300 MG CAP PO SCH (11:00)
[2022-09-11] MEDS: Transdermal Patch Removal TOP SCH (11:15)
[2022-09-11 12:52] VITALS: BP 150/66; TEMP 98.2
== END 2022-09-11 13:17 | DRG 551 ==
LOC: ERS 10:57 → 2NO 16:17 → OBSVTOIN 09-02 13:03
PROVIDERS: ADMIT Internal Medicine; ATTEND Internal Medicine
DX: S22.089A Unspecified fracture of T11-T12 vertebra, initial encounter for closed fracture (principal); G93.41 Metabolic encephalopathy; I50.33 Acute on chronic diastolic (congestive) heart failure; I13.0 Hypertensive heart and chronic kidney disease with heart failure and stage 1 through stage 4 chronic kidney disease, or unspecified chronic kidney disease; N18.4 Chronic kidney disease, stage 4 (severe); I47.20 Ventricular tachycardia, unspecified; Z68.41 Body mass index [BMI] 40.0-44.9, adult; E66.2 Morbid (severe) obesity with alveolar hypoventilation; N17.9 Acute kidney failure, unspecified; Z66 Do not resuscitate; I48.0 Paroxysmal atrial fibrillation; E78.5 Hyperlipidemia, unspecified; Z20.822 Contact with and (suspected) exposure to COVID-19; I44.7 Left bundle-branch block, unspecified; I49.3 Ventricular premature depolarization; K21.9 Gastro-esophageal reflux disease without esophagitis; E11.22 Type 2 diabetes mellitus with diabetic chronic kidney disease; G89.29 Other chronic pain; E55.9 Vitamin D deficiency, unspecified; W19.XXXA Unspecified fall, initial encounter; Z88.0 Allergy status to penicillin; Z88.2 Allergy status to sulfonamides; Z88.8 Allergy status to other drugs, medicaments and biological substances; Z79.82 Long term (current) use of aspirin; Z79.4 Long term (current) use of insulin; Z79.51 Long term (current) use of inhaled steroids; Z79.899 Other long term (current) drug therapy; Z90.710 Acquired absence of both cervix and uterus; Z99.81 Dependence on supplemental oxygen
CPT/HCPCS: 36415; 36416; 36600; 51701; 70450; 71045; 74176; 80048; 80053; 80061; 81001; 81003; 81015; 82140; 82306; 82805; 83605; 83690; 83735; 83880; 84443; 84484; 85025; 85610; 85730; 87077; 87086; 87811; 93005; 93010; 93306; 94640; 94760; 95816; 95819; 95957; 96365; 96367; 96372; 96375; 96376; G0378; J0696; J1644; J1815; J1940; J3010; J3475; J7620; U0003; U0005

== ENCOUNTER 2022-09-20 13:41 | Outpatient (CLI) | payer OTHER, MEDICAID | END 2022-09-20 13:42 | disposition home or self-care (01) | LOC: RAD-FRANK 13:41 | PROVIDERS: ATTEND Nurse Practitioner Family | DX: M54.6 Pain in thoracic spine (principal); M54.50 Low back pain, unspecified; M47.816 Spondylosis without myelopathy or radiculopathy, lumbar region; M48.14 Ankylosing hyperostosis [Forestier], thoracic region | CPT/HCPCS: 72070; 72100 ==